=== PATIENT | female | born 1975 | race Caucasian/White ===

== ENCOUNTER → 2020-06-20 13:36 | Outpatient (BNVA) | payer MEDICARE, MEDICAID, SELFPAY | PROVIDERS: Family Provider Family Medicine; PCP Family Medicine; Visit Provider Family Medicine Adult Medicine | DX: Z00.00 Encounter for general adult medical examination without abnormal findings (principal); E03.9 Hypothyroidism, unspecified; I10 Essential (primary) hypertension; F32.9 Major depressive disorder, single episode, unspecified; K21.9 Gastro-esophageal reflux disease without esophagitis; J44.9 Chronic obstructive pulmonary disease, unspecified; Z79.899 Other long term (current) drug therapy | CPT/HCPCS: 80053; 80061; 83036; 83721; 84443; 85025 ==

== ENCOUNTER 2020-07-21 17:15 | Emergency (ER) | payer MEDICARE, MEDICAID, SELFPAY ==
[2020-07-21 17:23] VITALS: BP 189/122; PULSE 88; RESP 16; TEMP 36.8; O2SAT 98; BMI 34.7
--- NOTE | 2020-07-21 17:23 | XRR_ITS ---
PROCEDURE INFORMATION: Exam: XR Chest, 1 View Exam date and time: 07/21/2020 5:30 PM Age: 45 years old Clinical indication: Dyspnea; Additional info: Syncope TECHNIQUE: Imaging protocol: XR of the chest Views: 1 view. Total images: 1 COMPARISON: No relevant prior studies available. FINDINGS: Lungs: Unremarkable. No consolidation. Pleural space: Unremarkable. No pleural effusion. No pneumothorax. Heart/Mediastinum: Unremarkable. No cardiomegaly. Bones/joints: Cervical fusion. Epidural TENS unit. XR/XR chest 1V portable [id number] IMPRESSION: Nonacute.
--- NOTE | 2020-07-21 17:25 | ECG_ITS ---
[facility] Test Date: 2020-07-21 Pat Name: Cynthia Roblero Department: Room: Gender: Female Emergency Department Clinician: : 1975 Requested By: More Cook Order Number: [id number] Dari MD: Leila Voss M.D. Measurements Intervals [place] Rate: 79 P: 47 [place]: 146 QRS: 31 QRSD: 97 T: 38 QT: 375 QTc: 432 Interpretive Statements SINUS RHYTHM POSSIBLE LEFT ATRIAL ENLARGEMENT [-0.1mV P WAVE IN V1/V2] No previous ECG available for comparison Electronically Signed On 07-21-2020 17:48:48 MANAGER SECURITY by Leila Voss M.D. [id number]
--- NOTE | 2020-07-21 17:38 | ED_ITS ---
HPI - Recheck/Abnormal Lab/Rx General: Chief Complaint: Recheck/Abnormal Lab/Rx Stated Complaint: HIGH BLOOD PRESSURE Time Seen by Provider: 07/21/20 17:23 Source: patient and family (spouse) Mode of arrival: ambulatory Limitations: no limitations History of Present Illness: HPI narrative: 45-year-old female patient presents to the emergency department with hypertension. Reports readings at home 240s over 120s. She states took an extra clonidine 0.1 mg along with an old prescription dose of lisinopril 20 mg. She denies chest pain, shortness of breath. She reports recent blood pressure medication change, cessation of lisinopril and addition of clonidine. She has a bag of medications with her, prescription of chlorthalidone and carvedilol not in the bag. She reports not taking chlorthalidone. 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 Review of her visit with Dr Knedall, 06/2020, BP elevated at that time 168/100. Initial visit (ago): hour(s) (2-3) Returns today for: other (BP elevation) Description of abnormal result: reports feels her heart is fluttering with elevation of BP readings Symptoms since prior visit: no new symptoms Review of Systems General: Reports: 10 or more systems reviewed and unremarkable except in HPI and below Const: Denies: fever(s), chills or diaphoresis Eyes: Denies: blurry vision or eye redness ENMT: Denies: throat pain, dental pain or disequilibrium Card: Reports: palpitations; Denies: chest pain, irregular heart rhythm, edema, swelling of feet/ankles, lightheadedness, syncope, dyspnea on exertion or orthopnea Resp: Denies: dyspnea, productive cough, non-productive cough or wheezing GI: Denies: abdominal pain, nausea or vomiting : Denies: difficulty voiding or dysuria Musc: Reports: neck pain (chronic) and back pain (chronic) Skin/Breast: Denies: rash or pruritus Neuro: Denies: headache(s), weakness in extremities or behavioral changes Psych: Reports: anxiety (Controlled with medication), depression (Controlled with medication) and difficulty concentrating; Denies: sleeping more, hopelessness or irritability [place]/Lymph: Denies: easy bruising PFSH ED PFSH: Medical History Asthma Chronic GERD COPD (chronic obstructive pulmonary disease) Depression Elevated liver enzymes Hypertension Hypothalamic hypothyroidism Thoracic back pain Wellness examination Surgical History History of appendectomy History of back surgery History of cholecystectomy History of neck surgery History of tubal ligation Social History Smoking and tobacco status: current every day smoker cigarettes Packs smoked per day: 0.5 Second hand smoke exposure: Yes Alcohol intake: never Physical Exam Const: COMMON NORMALS: no acute distress, patient oriented x3, healthy appearing and alert GENERAL APPEARANCE: cooperative, comfortable and well hydrated HENMT: COMMON NORMALS: normocephalic, Normal external nose present and moist oral mucous membranes HEAD & SCALP: normocephalic NOSE: Normal external nose present Eye: COMMON NORMALS: Equal, round and reactive pupils present and EOMs intact bilaterally GENERAL EYE: appearance normal, both eyes and all related structures PUPIL: Yes Equal, round and reactive pupils present Neck/C-Spine: COMMON NORMALS: full ROM and no lymphadenopathy GENERAL: Yes normal visual inspection and Yes trachea midline CERVICAL SPINE: Yes cervical ROM normal Lymph: LYMPHATIC: no lymphadenopathy noted Chest: COMMONS NORMALS: normal inspection of the chest Resp: COMMON NORMALS: normal respiratory effort and clear to auscultation bilaterally AUSCULTATION: clear to auscultation bilaterally Cardio: COMMON NORMALS: regular rate, regular rhythm, S1 normal heart sound present, S2 normal heart sound present and Peripheral pulses 2+ throughout RATE: regular rate RHYTHM: regular rhythm HEART SOUNDS: S1 normal heart sound present and S2 normal heart sound present PERIPHERAL PULSES: Peripheral pulses 2+ throughout GI: COMMON NORMALS: Soft to palpation and non-tender INSPECTION: Yes normal to inspection PALPATION: Yes Soft to palpation : COMMON NORMALS: Yes no CVA tenderness BLADDER/KIDNEY EXAM: Yes no CVA tenderness Back/Pelvis: COMMON NORMALS: no CVA tenderness and thoracic and lumbar spine normal to inspection Extremity: COMMON NORMALS: normal to inspection and capillary refill normal Neuro: COMMON NORMALS: patient oriented x3 and no focal motor deficits SENSORIUM/ORIENTATION: Yes alert Psych: COMMON NORMALS: mental status grossly normal, Normal thought process present and cooperative ACTIVITY/MOTOR BEHAVIOR: Yes appropriate eye contact THOUGHT PROCESS: Normal thought process present Skin: COMMON NORMALS: no rashes or lesions noted and turgor normal GENERAL SKIN EXAM: no rashes or lesions noted and turgor normal Course Vital Signs: Vital signs: Vital Signs Temperature 98.3 F 07/21/20 17:23 Pulse Rate 60 07/21/20 19:24 Respiratory Rate 16 07/21/20 19:24 Blood Pressure 153/93 07/21/20 19:24 Pulse Oximetry 99 07/21/20 19:24 MDM - Recheck/Abnormal Lab/Rx MDM Narrative: Medical decision making narrative: 45-year-old female patient presents to the emergency department with hypertension, blood pressure here in the ED decreased to 153/93. She did receive 50 mg chlorthalidone in the ED; serology testing without significant abnormalities, liver enzymes noted to be elevated with previous elevation of liver enzymes noted. CBC without significant abnormality. EKG without acute findings. Prescription for chlorthalidone provided to the patient, advised to continue medications as prescribed. Verbalized understanding. Agrees to follow-up with her primary care provider next week. Heart rate remained in the 60s to 70s during her stay. Lab Data: Labs: Lab Results 07/21/20 07/21/20 07/21/20 Range/Units 17:45 17:45 17:45 WBC 8.0 (4.0-10.0) 10^3/ uL RBC 4.42 (4.1-5.3) 10^6/u L Hgb 13.9 (11.5-15.3) g/dL Hct 41.5 (37.0-47.0) % MCV 93.9 (81-99) fL MCH 31.4 (28.0-34.0) pg MCHC 33.5 (30.0-36.0) g/dL RDW 12.6 (12.1-15.1) % Plt Count 254 (130-400) 10^3/c mm MPV 11.7 H (7.4-10.4) fL Neut % (Auto) 49.6 % Lymph % (Auto) 34.8 % [place] % (Auto) 9.1 % Eos % (Auto) 5.0 % Baso % (Auto) 1.1 % Neut # (Auto) 3.98 (1.8-7.7) 10^3/u L Lymph # (Auto) 2.8 (0.8-4.8) 10^3/u L [place] # (Auto) 0.7 (0.2-0.9) 10^3/u L Eos # (Auto) 0.4 (0.0-0.8) 10^3/u L Baso # (Auto) 0.1 (0.0-0.1) 10^3/u L Nucleated RBC % (a uto) 0 % Nucleated RBCs # 0.0 /100WBC Sodium 138 (136-145) mmol/L Potassium 3.7 (3.5-5.1) mmol/L Chloride 101 (98-107) mmol/L Carbon Dioxide 25 (22-29) mmol/L Anion Gap 15.7 (5-19) BUN 8 (6-20) mg/dL Creatinine 0.8 (0.5-0.9) mg/dL GFR Calculation 76.9 L (90-130) mL/min Glucose 150 H (65-115) mg/dL Calculated Osmolal ity 287 (285-295) mOsm/k g Calcium 9.4 (8.5-10.5) mg/dL Total Bilirubin 0.4 (0.15-1.2) mg/dL AST 192 H (0-32) U/L ALT 184 H (0-33) U/L Alkaline Phosphata se 100 (35-105) IU/L Troponin T Baselin e 6 (0-10) ng/L NT-Pro-B Natriuret Pep 62 (0-125) pg/mL Total Protein 7.9 (6.6-8.7) g/dL Albumin 4.5 (3.5-5.2) g/dL Globulin 3.4 (1.3-4.6) g/dL EKG Data^: EKG 1: EKG interpretation date: 07/21/20 EKG interpretation time: 17:40 Other EKG comments: Sinus rhythm; left possible left atrial enlargement, borderline ECG Discharge Plan Discharge Patient Disposition: Home Clinical Impression: Medication discontinued without order Hypertension Qualifiers: Hypertension type: essential hypertension Qualified Code(s): I10 - Essential (primary) hypertension Condition: Stable Prescriptions: New chlorthalidone 25 mg tablet 25 mg PO DAILY Qty: 30 RF: 0 No Action albuterol sulfate [Ventolin HFA] 90 mcg/actuation HFA aerosol inhaler 2 puff INHALATION QID RF: 0 carvedilol 12.5 mg tablet 12.5 mg PO BID 90 Days Qty: 180 RF: 1 levothyroxine [Synthroid] 75 mcg tablet 75 mcg PO DAILY 90 Days Qty: 90 RF: 1 hydrocodone-acetaminophen [[place]] 10-325 mg tablet 1 tab PO QID PRN (Reason: pain) 30 Days Qty: 1 RF: 0 cyclobenzaprine 5 mg tablet 5 mg PO TID PRN (Reason: muscle spasm) 30 Days Qty: 1 RF: 0 chlorthalidone 25 mg tablet 25 mg PO DAILY 90 Days Qty: 90 RF: 0 promethazine 25 mg tablet 25 mg PO TID PRN (Reason: nausea and vomiting and headache) 90 Days Qty: 90 RF: 1 bupropion HCl 100 mg tablet 100 mg PO BID Qty: 60 RF: 1 pantoprazole 20 mg tablet,delayed release (DR/EC) 20 mg PO DAILY 90 Days Qty: 90 RF: 1 clonidine HCl 0.1 mg tablet 0.1 mg PO BID 90 Days Qty: 180 RF: 0 metformin 500 mg tablet 500 mg PO DAILY Qty: 30 RF: 2 gemfibrozil [Lopid] 600 mg tablet 600 mg PO BID 90 Days Qty: 180 RF: 1 (DME) blood-glucose meter [OneTouch Ultra2 Meter] Misc See Rx Instructions .ROUTE .MEDSUPPLY Qty: 1 RF: 0 (DME) OneTouch Ultra Blue Test Strip Strip See Rx Instructions .ROUTE .MEDSUPPLY Qty: 100 RF: 5 (DME) lancets [OneTouch Delica Plus Lancet] 33 gauge misc See Rx Instructions .ROUTE .MEDSUPPLY Qty: 100 RF: 5 Discharge Orders: Discharge ED (Routine); Ordered 07/21/20 Ordered By: More Urbina Referrals: Kay Najera DO [Primary Care Provider] - Discharge Diet: Cardiac Discharge Activity: Limit activity as instructed Patient Instructions: Hypertensive Crisis (ED), Hypertension (ED) Activity Restrictions/Additional Instructions: Prescription of chlorthalidone has been provided; take medications daily, start tomorrow as dose was provided tonight Continue current hypertension medications; chlorthalidone 25 mg daily; carvedilol 12.5 mg twice daily; clonidine 0.1 mg twice daily. Continue monitoring your blood pressure at home; record readings and follow-up with your primary care provider next week without fail for blood pressure evaluation. Return to the emergency department if you develop worsening symptoms such as heart palpitations, difficulty breathing or chest pain. Coding Level of Care Code ED Medical Laboratory Technician for Simóng Fwd Exam Comprehensive
[2020-07-21 18:00] LABS: Basophils # 0.1 10^3/uL (0.0-0.1); Basophils % 1.1 %; Eosinophils # 0.4 10^3/uL (0.0-0.8); Hematocrit 41.5 % (37.0-47.0); Hemoglobin 13.9 g/dL (11.5-15.3); Lymphocytes # 2.8 10^3/uL (0.8-4.8); Lymphocytes % 34.8 %; Mean Corpuscular HGB Conc 33.5 g/dL (30.0-36.0); Mean Corpuscular Hemoglobin 31.4 pg (28.0-34.0); Mean Corpuscular Volume 93.9 fL (81-99); Mean Platelet Volume 11.7 fL (7.4-10.4); Monocytes # 0.7 10^3/uL (0.2-0.9); Monocytes % 9.1 %; Neutrophils # 3.98 10^3/uL (1.8-7.7); Neutrophils % 49.6 %; Nucleated Red Blood Cells % 0 %; Platelet Count 254 10^3/cmm (130-400); Red Blood Count 4.42 10^6/uL (4.1-5.3); Red Cell Distribution Width 12.6 % (12.1-15.1)
[2020-07-21 18:18] LABS: Troponin(5th) Baseline 6 ng/L (0-10)
[2020-07-21 18:28] LABS: Alanine Aminotransferase 184 U/L (0-33); Albumin Level 4.5 g/dL (3.5-5.2); Alkaline Phosphatase 100 IU/L (35-105); Anion Gap 15.7 (5-19); Aspartate Amino Transferase 192 U/L (0-32); Blood Urea Nitrogen 8 mg/dL (6-20); Calcium 9.4 mg/dL (8.5-10.5); Carbon Dioxide 25 mmol/L (22-29); Chloride 101 mmol/L (98-107); Globulin 3.4 g/dL (1.3-4.6); Glomerular Filtration Rate 76.9 mL/min (90-130); Glucose 150 mg/dL (65-115); NT Pro B Type Natriuretic Pept 62 pg/mL (0-125); Osmolality Calculated 287 mOsm/kg (285-295); Potassium 3.7 mmol/L (3.5-5.1); Sodium 138 mmol/L (136-145); Total Bilirubin 0.4 mg/dL (0.15-1.2); Total Protein 7.9 g/dL (6.6-8.7)
[2020-07-21 18:43] VITALS: BP 155/94; PULSE 64; RESP 16; O2SAT 98
--- NOTE | 2020-07-21 19:08 | PC.NURSE ---
pt dosage was 25mg chlorthalidon, pharmacy brought down 2 pills, 25 mg each and both pills were accidently given. Discussed with HARMONIC ANALYST More Urbina and Dr Leblanc as well as pharmacy Scout and charge nurse Maximus.
[2020-07-21 19:24] VITALS: BP 153/93; PULSE 60; RESP 16; O2SAT 99
== END 2020-07-21 19:40 | disposition home or self-care (01) ==
PROVIDERS: Emergency Provider Nurse Practitioner Family; PCP Family Medicine
DX: I10 Essential (primary) hypertension (principal); J44.9 Chronic obstructive pulmonary disease, unspecified; F17.210 Nicotine dependence, cigarettes, uncomplicated
CPT/HCPCS: 12345; 71045; 80053; 83880; 84484; 85025; 93005; 99283

== ENCOUNTER → 2020-11-09 13:18 | Outpatient (BNVA) | payer MEDICARE, MEDICAID, SELFPAY | PROVIDERS: PCP Family Medicine Adult Medicine; Visit Provider Family Medicine Adult Medicine | DX: E11.69 Type 2 diabetes mellitus with other specified complication (principal); E78.5 Hyperlipidemia, unspecified; E03.9 Hypothyroidism, unspecified; R74.8 Abnormal levels of other serum enzymes; F32.9 Major depressive disorder, single episode, unspecified; I10 Essential (primary) hypertension; J44.9 Chronic obstructive pulmonary disease, unspecified | CPT/HCPCS: 80053; 80061; 83036; 83721; 84443 ==

== ENCOUNTER → 2021-04-01 11:41 | Outpatient (BNVA) | payer OTHER, SELFPAY | PROVIDERS: PCP Family Medicine Adult Medicine; Visit Provider Family Medicine Adult Medicine | DX: E03.9 Hypothyroidism, unspecified (principal); E11.69 Type 2 diabetes mellitus with other specified complication; E78.5 Hyperlipidemia, unspecified; R74.8 Abnormal levels of other serum enzymes; Z13.6 Encounter for screening for cardiovascular disorders; K21.9 Gastro-esophageal reflux disease without esophagitis; Z79.899 Other long term (current) drug therapy | CPT/HCPCS: 80053; 80061; 83036; 84443; 85007; 85027 ==

== ENCOUNTER 2021-05-29 01:16 | Inpatient (IN) | payer MEDICARE, MEDICAID, SELFPAY ==
[2021-05-29] VITALS (19 sets, daily range): BP systolic 107–202; BP diastolic 69–112; PULSE 7–76; RESP 16–24; TEMP 36.6–37.3; O2SAT 90–99; BMI 31.4
--- NOTE | 2021-05-29 02:00 | W.ED.ABDPA2 ---
Documented by User: OCTVAIA Marie 05/29/21 03:21 HPI - Abdominal Pain General: Chief Complaint: Abdominal Pain Stated Complaint: Abd Pain Time Seen by Provider: 05/29/21 01:32 History of Present Illness: HPI narrative: Patient is a 46-year-old female comes to the ED with abdominal pain nausea and vomiting. Patient has a surgical history of cholecystectomy, appendectomy, tubal ligation. Medical history of dyslipidemia, type 2 diabetes, GERD, COPD, hypertension and hypothyroidism. Symptoms started around 8 PM tonight. She had just finished eating dinner when symptoms started. This pain is similar to her past pancreatitis episode, but this pain seems to be more severe. Endorses nausea and has had a couple episodes of emesis since onset of symptoms. Pain she rates a 10 out of 10 and its in the periumbilical/epigastric region and radiates to the middle of her back. Associated Symptoms: Reports nausea and vomiting; Denies chills, constipation, diarrhea, dysuria, fever(s), hematochezia and hematuria Review of Systems Const: Denies: fever(s), chills or fatigue Eyes: Denies: change in vision or eye discomfort ENMT: Denies: throat pain, odynophagia, nasal discharge or nasal congestion Card: Denies: chest pain, palpitations, edema, swelling of feet/ankles, dyspnea on exertion or orthopnea Resp: Denies: dyspnea, productive cough or non-productive cough GI: Reports: abdominal pain, nausea and vomiting; Denies: diarrhea, constipation or hematochezia : Denies: flank pain, dysuria or hematuria Musc: Denies: neck pain, back pain or extremity swelling Skin/Breast: Denies: rash or new lesions Neuro: Denies: headache(s), numbness in extremities or weakness in extremities PFS ED PFSH: Medical History Asthma Chronic GERD COPD (chronic obstructive pulmonary disease) Depression Diabetes type 2, controlled Dyslipidemia associated with type 2 diabetes mellitus Elevated liver enzymes Hypertension Hypothalamic hypothyroidism Thoracic back pain She has had some thoracic back pain and when she bends over sometimes she has a hard time straightening up however this is not as new is the fatigue and the burning sensation has had in her face and she thinks it might be related to either the clonidine or the Lopid that she started at the same time she stopped her Metformin. Wellness examination Surgical History History of appendectomy History of back surgery History of cholecystectomy History of neck surgery History of tubal ligation Social History Smoking and tobacco status: current every day smoker cigarettes Packs smoked per day: 0.5 Second hand smoke exposure: Yes Alcohol intake: never Physical Exam Const: COMMON NORMALS: patient oriented x3 and alert GENERAL APPEARANCE: cooperative and in distress (Patient appears uncomfortable and is in pain.) HENMT: COMMON NORMALS: normocephalic HEAD & SCALP: normocephalic MOUTH: moist mucous membranes abnormal Details: parched THROAT: posterior oropharynx normal and uvula midline Neck/C-Spine: COMMON NORMALS: supple GENERAL: Yes normal visual inspection Resp: COMMON NORMALS: normal respiratory effort, No retractions, No use of accessory muscles and clear to auscultation bilaterally AUSCULTATION: clear to auscultation bilaterally Cardio: COMMON NORMALS: regular rate, regular rhythm, S1 normal heart sound present, S2 normal heart sound present, No gallops present (Cardio), No clicks present (Cardio), No murmurs present (Cardio) and Peripheral pulses 2+ throughout RATE: regular rate RHYTHM: regular rhythm HEART SOUNDS: S1 normal heart sound present and S2 normal heart sound present PERIPHERAL PULSES: Peripheral pulses 2+ throughout GI: COMMON NORMALS: Normal to inspection, nondistended, normoactive bowel sounds present, Soft to palpation and no masses PALPATION: Yes Soft to palpation and Yes Tenderness to palpation present (GI) Details: other (Periumbilical and epigastric region.) : COMMON NORMALS: Yes no CVA tenderness BLADDER/KIDNEY EXAM: Yes no CVA tenderness Back/Pelvis: COMMON NORMALS: no CVA tenderness Extremity: COMMON NORMALS: normal to inspection Neuro: COMMON NORMALS: patient oriented x3 SENSORIUM/ORIENTATION: Yes alert Skin: GENERAL SKIN EXAM: dry skin Course Reevaluation(s): Reevaluation #1: Patient's pain has improved and she now rates it about a 7 out of 10. Her nausea has resolved and she has had no episodes of emesis since she is gotten here to the ED. I told patient about lab and CT findings showing pancreatitis. I discussed with her the options of potentially getting admitted or outpatient treatment. Patient would prefer to go home tonight. I told patient we will give her some another dose of something for pain and have her try some p.o. water. If she can keep fluids down and pain is better controlled she can discharge home. Time: 03:05 Vital Signs: Vital signs: Vital Signs Pulse Rate 64 05/29/21 02:14 Respiratory Rate 24 H 05/29/21 02:10 Blood Pressure 166/96 05/29/21 01:21 Pulse Oximetry 97 05/29/21 02:14 MDM - Abdominal Pain MDM Narrative: Medical decision making narrative: Patient is a 46-year-old female comes to the ED with abdominal pain, nausea vomiting. Symptoms started around 8 PM tonight right after she ate some food. She has a history of pancreatitis and says this is similar to one of her past episodes. Pain radiates to the middle of the back. Vital stable. Exam shows a patient appears in distress and pain. She has some periumbilical and epigastric tenderness upon palpation. Oral mucous membranes are dry. White blood cell count 12 and the rest of CBC and CMP were unremarkable. Lipase 1240. Lactic is pending and blood cultures pending. CT of abdomen pelvis showed pancreatitis without necrosis. After patient received IV fluids, morphine and Reglan her pain has improved some and her nausea has resolved. She has not had any episodes of emesis here in the ED. I discussed possible admission or outpatient treatment with patient and she prefers not to be admitted and would like to go home tonight. I told patient if we get her pain better controlled and she can keep p.o. fluids down, there is a good chance she could be discharged home for outpatient treatment. I talked with Dr. Watts about pt case and signed patient out to him. I told him that patient is getting another liter of fluids, pain med and is going to try some p.o. fluids. Dr. Watts accepted signout of patient and will monitor her pain and p.o. fluids and will make discharge plan. Lab Data: Attestation: I reviewed the patient's lab results. Labs: Lab Results 05/29/21 05/29/21 01:50 01:50 WBC 12.0 10^3/uL H 10 ^3/uL (4.0-10.0) RBC 4.23 10^6/uL 10^6 /uL (4.1-5.3) Hgb 13.4 g/dL g/dL (11.5-15.3) Hct 38.3 % % (37.0-47.0) MCV 90.5 fl fl (81-99) MCH 31.7 pg pg (28.0-34.0) MCHC 35.0 g/dL g/dL (30.0-36.0) RDW 12.6 % % (12.1-15.1) Plt Count 219 10^3/cmm 10^3 /cmm (130-400) MPV 12.2 fL H fL (7.4-10.4) Neut % (Auto) 71.0 % % Lymph % (Auto) 18.2 % % [place] % (Auto) 7.4 % % Eos % (Auto) 2.2 % % Baso % (Auto) 0.7 % % Neut # (Auto) 8.55 10^3/uL H 10 ^3/uL (1.8-7.7) Lymph # (Auto) 2.2 10^3/uL 10^3/ uL (0.8-4.8) [place] # (Auto) 0.9 10^3/uL 10^3/ uL (0.2-0.9) Eos # (Auto) 0.3 10^3/uL 10^3/ uL (0.0-0.8) Baso # (Auto) 0.1 10^3/uL 10^3/ uL (0.0-0.1) Nucleated RBC % (a uto) 0 % % Nucleated RBCs # 0.0 /100WBC /100W BC Sodium 137 mmol/L mmol/L (136-145) Potassium 3.7 mmol/L mmol/L (3.5-5.1) Chloride 98 mmol/L mmol/L (98-107) Carbon Dioxide 25 mmol/L mmol/L (22-29) Anion Gap 17.7 (5-19) BUN 16 mg/dL mg/dL (6-20) Creatinine 0.8 mg/dL mg/dL (0.5-0.9) GFR Calculation 76.6 mL/min L mL/ min (90-130) Glucose 150 mg/dL H mg/dL (65-115) Calculated Osmolal ity 288 mOsm/kg mOsm/ kg (285-295) Calcium 9.9 mg/dL mg/dL (8.5-10.5) Total Bilirubin 0.3 mg/dL mg/dL (0.15-1.2) AST 73 U/L H U/L (0-32) ALT 45 U/L H U/L (0-33) Alkaline Phosphata se 163 IU/L H IU/L (35-105) Total Protein 8.0 g/dL g/dL (6.6-8.7) Albumin 4.7 g/dL g/dL (3.5-5.2) Globulin 3.3 g/dL g/dL (1.3-4.6) Lipase 1240 U/L H U/L (13-60) Imaging Data ^: CT Abd/Pel: Attestation: I personally reviewed and interpreted this imaging study as follows: Radiologist's impression: [place] [address] CT Scan Report Signed Patient: Cynthia Roblero Unit #: [id number] : 1975 Age/Sex: 46 / F ADM Date: 05/29/21 Loc: ER Room/Bed: Attending Dr: Ordering Provider/Ordering MD: Chuy Geurra Date of Service: 05/29/21 Procedure(s): CT abdomen pelvis w con* [id number] Accession Number(s): [id number] Report Number: [id number] PROCEDURE INFORMATION: Exam: CT Abdomen And Pelvis With Contrast Exam date and time: 05/29/2021 1:59 AM Age: 46 years old Clinical indication: Nausea and vomiting; Abdominal pain; Prior surgery; Surgery type: Gb. Stimulator; Patient HX: Epigastric pain with n/v. ; Additional info: Abdominal pain-periumbilical and epigastric, n/v TECHNIQUE: Imaging protocol: Computed tomography of the abdomen and pelvis with contrast. Radiation optimization: All CT scans at this facility use at least one of these dose optimization techniques: automated exposure control; mA and/or kV adjustment per patient size (includes targeted exams where dose is matched to clinical indication); or iterative reconstruction. Contrast material: OMNI 300; Contrast volume: 95 ml; Contrast route: INTRAVENOUS (IV); COMPARISON: MRI Lumbar Spine w/o [id number] 09/11/2017 10:33 AM RADIATION DOSE METRICS: Total DLP (mGy-cm): 1673.06 FINDINGS: Tubes, catheters and devices: Spinal cord stimulator leads enter the thoracic canal at T9-T10. Lungs: The lung bases are clear. No effusion Liver: Normal. No mass. Gallbladder and bile ducts: There has been a cholecystectomy. Mild biliary dilation, consistent with prior cholecystectomy. Pancreas: The pancreas is enlarged and edematous with peripancreatic fat stranding. Normal pancreatic enhancement. Spleen: Normal. No splenomegaly. Adrenal glands: Normal. No mass. Kidneys and ureters: Normal. No hydronephrosis. Stomach and bowel: Mild amount of formed stool in the colon. Appendix: The appendix is not positively identified. However, no secondary changes of appendicitis are present. Intraperitoneal space: Unremarkable. No free air. No significant fluid collection. Vasculature: Unremarkable. No abdominal aortic aneurysm. Lymph nodes: Unremarkable. No enlarged lymph nodes. Urinary bladder: Unremarkable as visualized. Reproductive: Unremarkable as visualized. Bones/joints: Unremarkable. No acute fracture. Soft tissues: Unremarkable. CT/CT abdomen pelvis w con* [id number] IMPRESSION: 1. Acute pancreatitis without necrosis. 2. Mild constipation. 3. The appendix is not positively identified. However, no secondary changes of appendicitis are present. Radiation Dose CTDIVOL = (mGy): DLP = 1673.06 (mGy-cm) Dictated By: Olivier Wilson Signed By: Olivier Wilson Signed Date/Time: 05/29/21 0255 DD/ [id number] Discharge Plan Discharge Clinical Impression: Pancreatitis Qualifiers: Chronicity: acute Pancreatitis type: unspecified pancreatitis type Acute pancreatitis complication: no infection or necrosis Qualified Code(s): K85.90 - Acute pancreatitis without necrosis or infection, unspecified Condition: Stable Prescriptions: No Action albuterol sulfate [Ventolin HFA] 90 mcg/actuation HFA aerosol inhaler 2 puff INHALATION QID RF: 0 hydrocodone-acetaminophen [[place]] 10-325 mg tablet 1 tab PO QID PRN (Reason: pain) 30 Days Qty: 1 RF: 0 cyclobenzaprine 5 mg tablet 5 mg PO TID PRN (Reason: muscle spasm) 30 Days Qty: 1 RF: 0 pantoprazole 20 mg tablet,delayed release (DR/EC) See Rx Instructions .ROUTE .COMPLEX PRNRF: 0 niacin 1,000 mg tablet extended release 24 hr 1,000 mg PO .pm Qty: 90 RF: 3 bupropion HCl 200 mg tablet sustained-release 12 hr 200 mg PO BID Qty: 60 RF: 5 (DME) blood-glucose meter [OneTouch Ultra2 Meter] Misc See Rx Instructions .ROUTE .MEDSUPPLY Qty: 1 RF: 0 (DME) OneTouch Ultra Blue Test Strip Strip See Rx Instructions .ROUTE .MEDSUPPLY Qty: 100 RF: 5 (DME) lancets [OneTouch Delica Plus Lancet] 33 gauge misc See Rx Instructions .ROUTE .MEDSUPPLY Qty: 100 RF: 5 levothyroxine [Synthroid] 75 mcg tablet 75 mcg PO DAILY 90 Days Qty: 90 RF: 1 clonidine HCl 0.1 mg tablet 0.1 mg PO BID Qty: 60 RF: 5 gemfibrozil 600 mg tablet See Rx Instructions .ROUTE .COMPLEX Qty: 180 RF: 0 carvedilol 12.5 mg tablet See Rx Instructions .ROUTE .COMPLEX Qty: 180 RF: 1 promethazine 25 mg tablet See Rx Instructions .ROUTE .COMPLEX Qty: 90 RF: 1 Referrals: Christiano Kendall MD [Primary Care Provider] - Coding Level of Care Code ED Artistic Director for Chg Fwd Exam Comprehensive Documented by User: Demar Watts MD 05/29/21 03:38 HPI - Abdominal Pain General: Chief Complaint: Abdominal Pain Stated Complaint: Abd Pain Time Seen by Provider: 05/29/21 01:32 PFSH ED PFSH: Medical History Asthma Chronic GERD COPD (chronic obstructive pulmonary disease) Depression Diabetes type 2, controlled Dyslipidemia associated with type 2 diabetes mellitus Elevated liver enzymes Hypertension Hypothalamic hypothyroidism Thoracic back pain She has had some thoracic back pain and when she bends over sometimes she has a hard time straightening up however this is not as new is the fatigue and the burning sensation has had in her face and she thinks it might be related to either the clonidine or the Lopid that she started at the same time she stopped her Metformin. Wellness examination Surgical History History of appendectomy History of back surgery History of cholecystectomy History of neck surgery History of tubal ligation Social History Smoking and tobacco status: current every day smoker cigarettes Packs smoked per day: 0.5 Second hand smoke exposure: Yes Alcohol intake: never Course Vital Signs: Vital signs: Vital Signs Pulse Rate 64 05/29/21 02:14 Respiratory Rate 24 H 05/29/21 02:10 Blood Pressure 166/96 05/29/21 01:21 Pulse Oximetry 97 05/29/21 02:14 MDM - Abdominal Pain MDM Narrative: Medical decision making narrative: On reassessment, patient tolerated p.o. without any difficulty. CT showed pancreatitis. At this time, I performed shared decision making with patient for admission vs discharge. Since patient tolerated p.o., I have offered patient the option to go home with close follow-up. Patient agrees with plan with close follow-up. I have given explained patient to come back to the emergency room should she have any worsening pain, fever/chill, dehydration, inability to tolerate p.o. Patient verbalized understanding of the risk of going home today and likes to do so at this time. Patient is aware that she needs to follow-up with her primary care provider in the next 48 hours. Rx zofran PRN nausea/vomiting Disposition: Discharge. Patient counseled regarding diagnostic impression, treatment plan. Patient given ED strict return precautions to return for continuation, worsening, or development of new symptoms. Instructed to f/u w/ PCP regarding symptoms today. Patient verbalized understanding. Lab Data: Labs: Lab Results 05/29/21 05/29/21 01:50 01:50 WBC 12.0 10^3/uL H 10 ^3/uL (4.0-10.0) RBC 4.23 10^6/uL 10^6 /uL (4.1-5.3) Hgb 13.4 g/dL g/dL (11.5-15.3) Hct 38.3 % % (37.0-47.0) MCV 90.5 fl fl (81-99) MCH 31.7 pg pg (28.0-34.0) MCHC 35.0 g/dL g/dL (30.0-36.0) RDW 12.6 % % (12.1-15.1) Plt Count 219 10^3/cmm 10^3 /cmm (130-400) MPV 12.2 fL H fL (7.4-10.4) Neut % (Auto) 71.0 % % Lymph % (Auto) 18.2 % % [place] % (Auto) 7.4 % % Eos % (Auto) 2.2 % % Baso % (Auto) 0.7 % % Neut # (Auto) 8.55 10^3/uL H 10 ^3/uL (1.8-7.7) Lymph # (Auto) 2.2 10^3/uL 10^3/ uL (0.8-4.8) [place] # (Auto) 0.9 10^3/uL 10^3/ uL (0.2-0.9) Eos # (Auto) 0.3 10^3/uL 10^3/ uL (0.0-0.8) Baso # (Auto) 0.1 10^3/uL 10^3/ uL (0.0-0.1) Nucleated RBC % (a uto) 0 % % Nucleated RBCs # 0.0 /100WBC /100W BC Sodium 137 mmol/L mmol/L (136-145) Potassium 3.7 mmol/L mmol/L (3.5-5.1) Chloride 98 mmol/L mmol/L (98-107) Carbon Dioxide 25 mmol/L mmol/L (22-29) Anion Gap 17.7 (5-19) BUN 16 mg/dL mg/dL (6-20) Creatinine 0.8 mg/dL mg/dL (0.5-0.9) GFR Calculation 76.6 mL/min L mL/ min (90-130) Glucose 150 mg/dL H mg/dL (65-115) Calculated Osmolal ity 288 mOsm/kg mOsm/ kg (285-295) Calcium 9.9 mg/dL mg/dL (8.5-10.5) Total Bilirubin 0.3 mg/dL mg/dL (0.15-1.2) AST 73 U/L H U/L (0-32) ALT 45 U/L H U/L (0-33) Alkaline Phosphata se 163 IU/L H IU/L (35-105) Total Protein 8.0 g/dL g/dL (6.6-8.7) Albumin 4.7 g/dL g/dL (3.5-5.2) Globulin 3.3 g/dL g/dL (1.3-4.6) Lipase 1240 U/L H U/L (13-60) Discharge Plan Discharge Clinical Impression: Pancreatitis Qualifiers: Chronicity: acute Pancreatitis type: unspecified pancreatitis type Acute pancreatitis complication: no infection or necrosis Qualified Code(s): K85.90 - Acute pancreatitis without necrosis or infection, unspecified Condition: Stable Prescriptions: No Action albuterol sulfate [Ventolin HFA] 90 mcg/actuation HFA aerosol inhaler 2 puff INHALATION QID RF: 0 hydrocodone-acetaminophen [[place]] 10-325 mg tablet 1 tab PO QID PRN (Reason: pain) 30 Days Qty: 1 RF: 0 cyclobenzaprine 5 mg tablet 5 mg PO TID PRN (Reason: muscle spasm) 30 Days Qty: 1 RF: 0 pantoprazole 20 mg tablet,delayed release (DR/EC) See Rx Instructions .ROUTE .COMPLEX PRNRF: 0 niacin 1,000 mg tablet extended release 24 hr 1,000 mg PO .pm Qty: 90 RF: 3 bupropion HCl 200 mg tablet sustained-release 12 hr 200 mg PO BID Qty: 60 RF: 5 (DME) blood-glucose meter [OneTouch Ultra2 Meter] Misc See Rx Instructions .ROUTE .MEDSUPPLY Qty: 1 RF: 0 (DME) OneTouch Ultra Blue Test Strip Strip See Rx Instructions .ROUTE .MEDSUPPLY Qty: 100 RF: 5 (DME) lancets [OneTouch Delica Plus Lancet] 33 gauge misc See Rx Instructions .ROUTE .MEDSUPPLY Qty: 100 RF: 5 levothyroxine [Synthroid] 75 mcg tablet 75 mcg PO DAILY 90 Days Qty: 90 RF: 1 clonidine HCl 0.1 mg tablet 0.1 mg PO BID Qty: 60 RF: 5 gemfibrozil 600 mg tablet See Rx Instructions .ROUTE .COMPLEX Qty: 180 RF: 0 carvedilol 12.5 mg tablet See Rx Instructions .ROUTE .COMPLEX Qty: 180 RF: 1 promethazine 25 mg tablet See Rx Instructions .ROUTE .COMPLEX Qty: 90 RF: 1 Referrals: Christiano Kendall MD [Primary Care Provider] - Coding Level of Care Code ED Artistic Director for Chg Fwd Exam Comprehensive
[2021-05-29 02:07] LABS: Basophils # 0.1 10^3/uL (0.0-0.1); Basophils % 0.7 %; Eosinophils # 0.3 10^3/uL (0.0-0.8); Eosinophils % 2.2 %; Hematocrit 38.3 % (37.0-47.0); Hemoglobin 13.4 g/dL (11.5-15.3); Lymphocytes # 2.2 10^3/uL (0.8-4.8); Lymphocytes % 18.2 %; Mean Corpuscular Hemoglobin 31.7 pg (28.0-34.0); Mean Corpuscular Volume 90.5 fl (81-99); Mean Platelet Volume 12.2 fL (7.4-10.4); Monocytes # 0.9 10^3/uL (0.2-0.9); Monocytes % 7.4 %; Neutrophils # 8.55 10^3/uL (1.8-7.7); Nucleated Red Blood Cells % 0 %; Platelet Count 219 10^3/cmm (130-400); Red Blood Count 4.23 10^6/uL (4.1-5.3); Red Cell Distribution Width 12.6 % (12.1-15.1)
[2021-05-29] MEDS: metoclopramide 5 mg/mL SDV 2 mL 10 MG IVP (02:08)
[2021-05-29] MEDS: morphine 4 mg/mL SDV 1 mL IVP (02:10)
[2021-05-29] MEDS: sodium chloride 0.9% 1,000 ML 999 ML IV ×2 (02:11→04:10)
[2021-05-29] MEDS: iohexol 300 mg/mL 100 mL Btl IV (02:15)
[2021-05-29 02:18] LABS: Alanine Aminotransferase 45 U/L (0-33); Albumin Level 4.7 g/dL (3.5-5.2); Alkaline Phosphatase 163 IU/L (35-105); Anion Gap 17.7 (5-19); Aspartate Amino Transferase 73 U/L (0-32); Blood Urea Nitrogen 16 mg/dL (6-20); Calcium 9.9 mg/dL (8.5-10.5); Carbon Dioxide 25 mmol/L (22-29); Chloride 98 mmol/L (98-107); Globulin 3.3 g/dL (1.3-4.6); Glomerular Filtration Rate 76.6 mL/min (90-130); Glucose 150 mg/dL (65-115); Osmolality Calculated 288 mOsm/kg (285-295); Potassium 3.7 mmol/L (3.5-5.1); Sodium 137 mmol/L (136-145); Total Bilirubin 0.3 mg/dL (0.15-1.2)
[2021-05-29 02:26] LABS: Lipase 1240 U/L (13-60)
[2021-05-29] MEDS: HYDROmorphone 1 mg/mL INJ 1 mL IVP (04:10)
[2021-05-29 04:31] LABS: Add Urine Microscopic? NO; Charge for UA Resulting for Rev
[2021-05-29 04:38] LABS: Bilirubin Urine Neg (Negative); Blood Urine Neg (Negative); Glucose Urine UA Norm (Normal); Ketones Urine Negative (Negative); Leukocyte Esterase Urine Negative (Negative); Nitrate Urine Negative (Negative); Protein Urine Neg (Negative); Urine Appearance Clear (CLEAR); Urine Color Yellow (Yellow); Urobilinogen Urine Norm (Negative); pH Urine 5 (5-7)
[2021-05-29 05:10] LABS: Lactic Sepsis W/Reflex 0.9 mmol/L (0.5-2.2)
[2021-05-29] MEDS: HYDROmorphone 1 mg/mL INJ 1 mL 0.5 MG IVP ×4 (05:45→20:07)
--- NOTE | 2021-05-29 05:49 | P.HP_ITS ---
Providers/Chief Complaint Admitting Physician: Nadege Yoon MD Primary Care Provider: Christiano Kednall MD Chief Complaint: Abd Pain History of Present Illness Cynthia Roblero is a 46 year old female with PMH as below presenting today with abdominal pain that started shortly after dinner overnight. Pain associated with radiation into back and sides. Multiple episodes of nausea and vomiting+. No h/o binge alcohol consumption. Ct today shows acute pancreatitis without signs of necrosis. LFTs mildly deranged, CT abdomen shows post cholecystectomy state with mild biliary dilation thought related to post cholecystectomy. LFT trend with transaminitis dating back at least few months. Normal T. bili, mildly elevated ALP. Patient was going to be discharged earlier this morning however has been unable to tolerate po intake. Review of Systems Const: Denies: fever(s), chills or body aches Eyes: Denies: change in vision, blurry vision or photophobia ENMT: Reports: hoarseness; Denies: throat pain, enlarged tonsils, odynophagia or nasal congestion Card: Denies: chest pain, palpitations, irregular heart rhythm, edema, swelling of feet/ankles, lightheadedness, pre-syncope, dyspnea on exertion or orthopnea Resp: Denies: dyspnea, productive cough, non-productive cough, wheezing, stridor, pain on inspiration, change in phlegm color, hemoptysis or chest congestion GI: Denies: abdominal pain, nausea, vomiting, hematemesis, coffee ground emesis, dysphagia, heartburn, diarrhea, constipation, GI cramping, change in stool character, hematochezia or melena : Denies: flank pain, difficulty voiding, dysuria, urinary frequency, urinary urgency, urinary hesitancy or hematuria Musc: Denies: neck pain, back pain, extremity pain, joint swelling, joint warmth or deformity Neuro: Denies: headache(s), numbness in extremities, weakness in extremities, sensory changes, difficulty walking, frequent falls, dizziness, vertigo, behavioral changes, Slurred speech present or seizure-like activity Psych: Denies: anxiety, depression, suicidal ideation or homicidal ideation Endo: Denies: polyuria, polydipsia, tired all the time, cold intolerance or hot flashes [place]/Lymph: Denies: easy bruising or easy bleeding Medications/Allergies Home Medications Medication Instructions Recorded Confirmed Last Taken Type albuterol sulfate 90 mcg/actuation 2 puff INHALATION QID 02/29/20 04/03/21 Unknown History aerosol inhaler cyclobenzaprine 5 mg tablet 5 mg PO TID PRN 30 Days #1 tab 02/29/20 04/03/21 Unknown Rx hydrocodone 10 mg-acetaminophen 1 tab PO QID PRN 30 Days #1 tab 02/29/20/2 09/02 Unknown Rx 325 mg tablet blood sugar diagnostic #100 ea 06/27/20 04/03/21 Unknown Rx blood-glucose meter #1 ea 06/27/20 04/03/21 Unknown Rx lancets 33 gauge #100 ea 06/27/20 04/03/21 Unknown Rx levothyroxine 75 mcg tablet 75 mcg PO DAILY 90 Days #90 tab 09/19/20 04/03/21 Unknown Rx clonidine HCl 0.1 mg tablet 0.1 mg PO BID #60 tab 01/31/21 04/03/21 Unknown Rx gemfibrozil 600 mg tablet See Rx Instructions .ROUTE 03/19/21 04/03/21 Unknown Rx .COMPLEX #180 tab bupropion HCl 200 mg tablet,12 hr 200 mg PO BID #60 tab 04/03/21 04/03/21 Unknown Rx sustained-release niacin 1,000 mg tablet,extended 1,000 mg PO .pm #90 tab 04/03/21 04/03/21 Unknown Rx release 24 hr pantoprazole 20 mg tablet,delayed See Rx Instructions .ROUTE 04/03/21 Unknown History release .COMPLEX PRN tab carvedilol 12.5 mg tablet See Rx Instructions .ROUTE 05/08/21 Unknown Rx .COMPLEX #180 tab promethazine 25 mg tablet See Rx Instructions .ROUTE 05/08/21 Unknown Rx .COMPLEX #90 tab calcium carbonate-simethicone 1 tab PO TID PRN 7 Days #21 tab 05/29/21 Unknown Rx [Maalox Advanced] famotidine [Pepcid] 20 mg PO BID PRN 10 Days #20 tab 05/29/21 Unknown Rx ondansetron HCl [Zofran] 4 mg PO TID PRN 4 Days #12 tab 05/29/21 Unknown Rx Allergies Allergy/AdvReac Type Severity Reaction Status Date / Time butorphanol [From Stadol] Allergy SWELLING Verified 04/03/21 13:57 AND LESIONS latex Allergy rash Verified 04/03/21 13:57 PFSH Acute PFSH: Medical History Asthma Chronic GERD COPD (chronic obstructive pulmonary disease) Depression Diabetes type 2, controlled Dyslipidemia associated with type 2 diabetes mellitus Elevated liver enzymes Hypertension Hypothalamic hypothyroidism Thoracic back pain She has had some thoracic back pain and when she bends over sometimes she has a hard time straightening up however this is not as new is the fatigue and the burning sensation has had in her face and she thinks it might be related to either the clonidine or the Lopid that she started at the same time she stopped her Metformin. Wellness examination Surgical History History of appendectomy History of back surgery History of cholecystectomy History of neck surgery History of tubal ligation Social History Smoking and tobacco status: current every day smoker cigarettes Packs smoked per day: 0.5 Second hand smoke exposure: Yes Alcohol intake: never Vitals/I&O/Wt Last Vital Signs Pulse 55 L 05/29/21 04:02 Resp 22 H 05/29/21 04:10 BP 166/96 05/29/21 01:21 Pulse Ox 97 05/29/21 04:02 05/28/21 05/28/21 05/29/21 14:59 22:59 06:59 Intake Total 1999 Balance 1999 Weight last 48 hrs Weight 79.379 kg Data : 05/29/21 01:50 05/29/21 01:50 Micro: Microbiology 05/29/21 05:24 Blood Culture - Preliminary Blood SPECIMEN COLLECTED 05/29/21 04:45 Blood Culture - Preliminary Blood SPECIMEN COLLECTED Attestation for Other Data: I personally reviewed and interpreted the following: Other data: Laboratory Results WBC 12.0 10^3/uL (4.0-10.0) H 05/29/21 01:50 RBC 4.23 10^6/uL (4.1-5.3) 05/29/21 01:50 Hgb 13.4 g/dL (11.5-15.3) 05/29/21 01:50 Hct 38.3 % (37.0-47.0) 05/29/21 01:50 MCV 90.5 fl (81-99) 05/29/21 01:50 MCH 31.7 pg (28.0-34.0) 05/29/21 01:50 MCHC 35.0 g/dL (30.0-36.0) 05/29/21 01:50 RDW 12.6 % (12.1-15.1) 05/29/21 01:50 Plt Count 219 10^3/cmm (130-400) 05/29/21 01:50 MPV 12.2 fL (7.4-10.4) H 05/29/21 01:50 Neut % (Auto) 71.0 % 05/29/21 01:50 Lymph % (Auto) 18.2 % 05/29/21 01:50 [place] % (Auto) 7.4 % 05/29/21 01:50 Eos % (Auto) 2.2 % 05/29/21 01:50 Baso % (Auto) 0.7 % 05/29/21 01:50 Neut # (Auto) 8.55 10^3/uL (1.8-7.7) H 05/29/21 01:50 Lymph # (Auto) 2.2 10^3/uL (0.8-4.8) 05/29/21 01:50 [place] # (Auto) 0.9 10^3/uL (0.2-0.9) 05/29/21 01:50 Eos # (Auto) 0.3 10^3/uL (0.0-0.8) 05/29/21 01:50 Baso # (Auto) 0.1 10^3/uL (0.0-0.1) 05/29/21 01:50 Nucleated RBC % (auto) 0 % 05/29/21 01:50 Nucleated RBCs # 0.0 /100WBC 05/29/21 01:50 Sodium 137 mmol/L (136-145) 05/29/21 01:50 Potassium 3.7 mmol/L (3.5-5.1) 05/29/21 01:50 Chloride 98 mmol/L (98-107) 05/29/21 01:50 Carbon Dioxide 25 mmol/L (22-29) 05/29/21 01:50 Anion Gap 17.7 (5-19) 05/29/21 01:50 BUN 16 mg/dL (6-20) 05/29/21 01:50 Creatinine 0.8 mg/dL (0.5-0.9) 05/29/21 01:50 GFR Calculation 76.6 mL/min (90-130) L 05/29/21 01:50 Glucose 150 mg/dL (65-115) H 05/29/21 01:50 Calculated Osmolality 288 mOsm/kg (285-295) 05/29/21 01:50 Lactic Acid 0.9 mmol/L (0.5-2.2) 05/29/21 04:45 Calcium 9.9 mg/dL (8.5-10.5) 05/29/21 01:50 Total Bilirubin 0.3 mg/dL (0.15-1.2) 05/29/21 01:50 AST 73 U/L (0-32) H 05/29/21 01:50 ALT 45 U/L (0-33) H 05/29/21 01:50 Alkaline Phosphatase 163 IU/L (35-105) H 05/29/21 01:50 Total Protein 8.0 g/dL (6.6-8.7) 05/29/21 01:50 Albumin 4.7 g/dL (3.5-5.2) 05/29/21 01:50 Globulin 3.3 g/dL (1.3-4.6) 05/29/21 01:50 Lipase 1240 U/L (13-60) H 05/29/21 01:50 Urine Color Yellow (Yellow) 05/29/21 04:10 Urine Appearance Clear (CLEAR) 05/29/21 04:10 Urine pH 5 (5-7) 05/29/21 04:10 Ur Specific [place] 1.010 (1.005-1.030) 05/29/21 04:10 Urine Protein Neg (Negative) 05/29/21 04:10 Urine Glucose (UA) Norm (Normal) 05/29/21 04:10 Urine Ketones Negative (Negative) 05/29/21 04:10 Urine Blood Neg (Negative) 05/29/21 04:10 Urine Nitrate Negative (Negative) 05/29/21 04:10 Urine Bilirubin Neg (Negative) 05/29/21 04:10 Urine Urobilinogen Norm mg/dL (Negative) 05/29/21 04:10 Ur Leukocyte Esterase Negative (Negative) 05/29/21 04:10 Urine HCG, Qual Negative (Negative) 05/29/21 04:10 Urine Opiates Screen Positive ng/mL (Negative) H 05/29/21 04:10 Ur Barbiturates Screen Negative ng/mL (Negative) 05/29/21 04:10 Ur Phencyclidine Scrn Negative ng/mL (Negative) 05/29/21 04:10 Ur Amphetamines Screen Negative ng/mL (Negative) 05/29/21 04:10 U Benzodiazepines Scrn Negative ng/mL (Negative) 05/29/21 04:10 Urine Cocaine Screen Negative ng/mL (Negative) 05/29/21 04:10 U Marijuana (THC) Screen Negative ng/mL (Negative) 05/29/21 04:10 Ethyl Alcohol < 10 mg/dL (0-10) 05/29/21 01:50 Impressions Abdomen/Pelvis CT 05/29/21 01:59 IMPRESSION: 1. Acute pancreatitis without necrosis. 2. Mild constipation. 3. The appendix is not positively identified. However, no secondary changes of appendicitis are present. Radiation Dose CTDIVOL = (mGy): DLP = 1673.06 (mGy-cm) A&P Assessment and plan (1) Pancreatitis: Admit in observation IVF NS @ 125 cc/hr NPO for now, slowly advance diet to clears when tolerated prn morphine for pain control check Triglyceride level, alcohol level, drug screen CT abdomen without signs of necrosis, s/p cholecytectomy, mild biliary dilatation thought related to post kranthi state. ALP not significantly elevated over baseline. Monitor LFT closely. Status: Acute Qualifiers: Acute pancreatitis complication: no infection or necrosis Chronicity: acute Pancreatitis type: unspecified pancreatitis type Qualified Code(s): K85.90 - Acute pancreatitis without necrosis or infection, unspecified Additional A&P Information HTn: continue home dose of clonidine hypothyroidism; continue levothyroxine Attestations Medical Necessity Statement*: antcipate less than 2 midnight stay for above defined care Coding Level of Care Code Acute Guest Services Assistant for [facility] Diagnoses Pancreatitis K85.90 Acute pancreatitis complication: no infection or necrosis Chronicity: acute Pancreatitis type: unspecified pancreatitis type
[2021-05-29] MEDS: ondansetron 2 mg/ML SDV 2 mL 4 MG IVP ×2 (06:14→11:00)
[2021-05-29 06:38] LABS: Alcohol Level < 10 mg/dL (0-10)
[2021-05-29 06:41] LABS: Amphetamines Screen Urine Negative (Negative); Barbiturates Screen Urine Negative (Negative); Benzodiazepines Screen Urine Negative (Negative); Cocaine Screen Urine Negative (Negative); Opiate Screen Urine Positive (Negative); PCP Screen Urine Negative (Negative); THC Screen Urine Negative (Negative)
[2021-05-29] MEDS: hyDRALAzine 20 mg/mL INJ 1 mL 10 MG IVP (06:46)
[2021-05-29] MEDS: amlodipine 5 mg Tablet PO (06:47)
[2021-05-29 07:23] LABS: Triglycerides 329 mg/dL (0-150)
[2021-05-29] MEDS: sodium chloride 0.9% 1,000 ML 125 ML IV ×2 (08:25→15:10)
[2021-05-29] MEDS: cloNIDine 0.1 mg Tablet PO ×3 (08:27→20:08)
[2021-05-29] MEDS: carvedilol 12.5 mg Tablet PO (08:27)
[2021-05-29] MEDS: levothyroxine 150 mcg Tablet 75 MCG PO (08:56)
[2021-05-29] MEDS: buPROPion SR (12 HR) 100 mg Tablet 200 MG PO ×2 (08:56→17:53)
[2021-05-29] MEDS: famotidine 20 mg/2 mL INJ IVP ×2 (08:56→20:07)
[2021-05-29] MEDS: enoxaparin 40 mg/0.4 mL Syringe SUBCUT (08:56)
--- NOTE | 2021-05-29 09:25 | PC.CHAP ---
Pastoral Care Encounter/Spiritual Assessment Type of Contact [] Declined propeller layout worker visit [] Patient/Family/Request visit [] Outpatient visit [] Follow-up visit [] Physician referral [] Code/Alert [x] Routine visit [] Staff referral [] Actively dying [x]x Patient sleeping [] Family support [] [] Out of room [] Palliative care [] [] Receiving care in room [] Pre-surgical visit [] Trauma [] Long length of stay [] ICU visit [] Other: Relational/Emotional Strength [] Patient feels connected with others/family/visitors/staff [] Distress [] Loneliness/isolation [] Abandonment Spirituality of Patient [] Person of Karina [] Attends Evangelical of their Karina [] Believes in Prayer [] Reads Bible or Mandaen materials [] There are Spiritual issues to be addressed Music Therapy Teacher Interventions [] Prayer [] Active listening [] Non-anxious presence [] Spiritual/emotional support [] Crisis/trauma care [] Spiritual counseling [] Bereavement support [] Provided bereavement packet [] Provided Bible/devotional materials [] Provided toy/stuffed animal, coloring book to patient or family member [] Provided Communion [] Anointing/[facility] [] Salvation [x] Completed spiritual assessment [] Other: Impact on Illness or Injury [] Angry [] Fearful [] Anxious [] Often cries [] Exhaustion [] Unable to work [] Unable to attend islam [] Unable to walk/stand [] Unable to read [] Unable to drive [] Unable to eat/drink [] Unable to sleep [] Unable to be with family [] Patient intubated [] Other: Summary Time spent with patient
[2021-05-29 10:30] LABS: Iron 77 ug/dL (37-145); Percent Saturation 19.4 % (20-50); Total Iron Binding Capacity 395 mcg/dl; Unsaturated Iron Binding 318 ug/dL (112-347)
--- NOTE | 2021-05-29 11:09 | PC.NURSE ---
Pain and Nausea Patient had episode of vomiting- 100ml of undigested food. Administered ondasteron 4mg IVP. Patient resting in bed comfortably after infusion.
--- NOTE | 2021-05-29 12:04 | PC.PHAR ---
pt states she takes care of her own medications-pt states she is still taking levothyroxine 75mcg last filled on 12/16/20 90d/s pt states she had a build up of this medication-pt states metformin 500mg daily last filled 09/24/20 90d/s and chlorthalidone 25mg daily filled on 11/12/20 90d/s were both dced
--- NOTE | 2021-05-29 14:01 | PM.PN ---
Subjective Subjective: Interval history: Admitted overnight. Examination complaining of abdominal pain. States she had pancreatitis on 20 years ago. Denies any nausea or vomiting. Complaining of abdominal pain not taking care with morphine. Has remained afebrile and hemodynamically stable. Vitals/I&O/Wt Last Vital Signs Temp 98.1 F 05/29/21 11:33 Pulse 65 05/29/21 11:33 Resp 17 05/29/21 11:33 BP 176/111 05/29/21 11:33 Pulse Ox 94 05/29/21 11:33 05/28/21 05/29/21 05/29/21 22:59 06:59 14:59 Intake Total 1999 Balance 1999 Weight last 48 hrs Weight 83.149 kg Weight 79.379 kg Physical Exam Narrative: EXAM NARRATIVE: General: No acute distress, AO x3 HEENT: PERRLA, pupils bilaterally equal and reactive Chest: Normal vesicular breath sounds, no added sounds, equal good air entry bilaterally CVS: S1-S2 regular, no murmurs, no tachycardia, no gallops, no rubs Abdomen: Soft, tender in epigastric area, no organomegaly, bowel sounds present but sluggish Neuro: No focal deficits, no facial deformity, AO x3, power 5/5 in all limbs Data : 05/29/21 01:50 05/29/21 01:50 Micro: Microbiology 05/29/21 05:24 Blood Culture - Preliminary Blood SPECIMEN COLLECTED 05/29/21 04:45 Blood Culture - Preliminary Blood SPECIMEN COLLECTED A&P Assessment and plan (1) Pancreatitis: Status: Acute Qualifiers: Acute pancreatitis complication: no infection or necrosis Chronicity: acute Pancreatitis type: unspecified pancreatitis type Qualified Code(s): K85.90 - Acute pancreatitis without necrosis or infection, unspecified (2) Dyslipidemia associated with type 2 diabetes mellitus: Status: Acute (3) Hypertension: Status: Acute Qualifiers: Hypertension type: essential hypertension Qualified Code(s): I10 - Essential (primary) hypertension (4) Elevated liver enzymes: Seems have been chronically elevated. Check hepatitis, HIV. Check VAMSI panel rule out autoimmune hepatitis versus pancreatitis, alpha-1 antitrypsin, celiac disease Status: Acute Additional A&P Information Pancreatitis: Unknown etiology. History of cholecystectomy, alcohol and drug screen negative on admission, states no changes in medications recently. Denies any nausea or vomiting. Start on clear liquid diet. Will advance diet very gradually depending on her symptoms. Switch from morphine to Dilaudid 0.5 every 4 hourly. Normal saline at 125 cc/h. Repeat BMP tomorrow. Hypertension: Uncontrolled. Continue with home dose of Coreg. Increase clonidine to 0.1 mg 3 times a day. Add amlodipine 5 mg daily. Will uptitrate medications keeping goal less than 140/90 mmHg. Check echocardiogram. Restart other chronic home medications. FC Clear liquid diet. Lovenox for DVT prophylaxis. Famotidine for PUD prophylaxis. Attestations Medical Necessity Statement*: Cynthia Roblero is being changed to inpatient status as stay will now exceed 2 midnights. Ongoing hospital care is necessary for poor oral intake as unable to tolerate oral diet, pain control requiring IV medications Time Spent in Patient Care: Greater than 35 minutes (>than 50% of time spent in counselling and/or direct pt care on unit). Coding Level of Care Code Acute Mogul Operator for Kylah Munoz Diagnoses Pancreatitis K85.90 Acute pancreatitis complication: no infection or necrosis Chronicity: acute Pancreatitis type: unspecified pancreatitis type Dyslipidemia associated with type 2 diabetes mellitus E11.69; E78.5 Hypertension I10 Hypertension type: essential hypertension Elevated liver enzymes R74.8
--- NOTE | 2021-05-29 14:09 | USCV_ITS ---
Cynthia Roblero Age: 46 Gender: F : 1975 Exam Date: 05/29/2021 14:43 Ordering Phys: Oumar Estevez MD Technologist: Exam Location: [facility] [place] Indication: POST STEM BP: 176 / 111 HR: 69 Rhythm: Sinus Technical Quality: Adequate MEASUREMENTS (Male / Female) Normal Values 2D ECHO LV Diastolic Diameter PLAX 3.5 cm 4.2 - 5.9 / 3.9 - 5.3 cm LV Systolic Diameter PLAX 2.3 cm IVS Diastolic Thickness 0.8 cm 0.6 - 1.0 / 0.6 - 0.9 cm IVS Systolic Thickness 1.1 cm LVPW Diastolic Thickness 0.9 cm 0.6 - 1.0 / 0.6 - 0.9 cm LVPW Systolic Thickness 1.1 cm LVOT Diameter 2.0 cm LV Ejection Fraction 2D Teich 57.6 % LV Ejection Fraction MOD 2C 63.7 % LV Ejection Fraction 2C AL 63.9 % LA Diameter 2.9 cm LA Width 2.6 cm LA Height 5.0 cm RA Width 3.1 cm RA Height 5.0 cm Aorta at Sinotubular Diameter 2.4 cm DOPPLER AV Peak Velocity 142.7 cm/s LVOT Peak Velocity 117.0 cm/s AV Area Cont Eq vti 2.6 cm squared AV Area Cont Eq pk 2.6 cm squared MV Area PHT 5.0 cm squared Mitral E to A Ratio 0.8 MV E' Velocity 40.5 cm/s Mitral E to MV E' Ratio 9.2 Mitral E to LV E' Lateral Ratio 10.0 Mitral E to LV E' Septal Ratio 8.4 TR Peak Velocity 148.3 cm/s TR Peak Gradient 8.8 mmHg TV Peak E Velocity 76.0 cm/s Right Atrial Pressure 3.0 mmHg Pulmonary Artery Systolic Pressu 11.8 mmHg FINDINGS Left Ventricle Normal left ventricular size. LV systolic function is normal with EF of 55-60%. No regional wall motion abnormalities. Grade 1 diastolic dysfunction Right Ventricle The right ventricle is normal in size and function. Right Atrium The right atrium is normal in size. Left Atrium The left atrium is normal in size. Mitral Valve Structurally normal mitral valve without significant stenosis or prolapse. There is no mitral regurgitation. Aortic Valve Structurally normal aortic valve without significant sclerosis or stenosis. There is no aortic regurgitation. Tricuspid Valve Structurally normal tricuspid valve without significant stenosis. Trace tricuspid regurgitation. Insufficient TR jet to calculate RVSP Pulmonic Valve Not well visualized Pericardium Normal pericardium without effusion. Aorta Normal ascending aorta dimension. CONCLUSIONS LV systolic function is normal with EF of 55-60% Grade 1 diastolic dysfunction Trace tricuspid regurgitation Compared to prior echocardiogram from 2012, no significant changes are noted Emmanuel Lantigua MD (Electronically Signed) Final Date: 03 June 2021 10:52 S
[2021-05-29 15:15] LABS: Gamma Glutamyl Transferase 32 U/L (5-36)
[2021-05-29 15:31] LABS: HIV 1 & 2 Antibody Non-Reactive (Non-Reactiv); HIV 1 & 2 Antigen Non-Reactive (Non-Reactiv)
[2021-05-29 15:36] LABS: Lactate Dehydrogenase 230 U/L (135-214)
[2021-05-29 16:21] LABS: Hepatitis A Antibody IgM Non-Reactive (Nonreactive); Hepatitis B Core AB, Total Non-Reactive (Nonreactive); Hepatitis B Surface AB 3.5 (11.5-1000); Hepatitis B Surface Antigen Non-Reactive (Nonreactive); Hepatitis C Virus Antibody Non-Reactive (Nonreactive)
[2021-05-29] MEDS: gemfibrozil 600 mg Tablet PO (17:53)
[2021-05-29 21:21] LABS: Glucose Point of Care 108 mg/dL (70-110)
[2021-05-30] VITALS (15 sets, daily range): BP systolic 88–139; BP diastolic 54–81; PULSE 58–90; RESP 16–18; TEMP 36.7–37.6; O2SAT 88–95
[2021-05-30] MEDS: sodium chloride 0.9% 1,000 ML 125 ML IV ×3 (00:22→14:28)
[2021-05-30] MEDS: HYDROmorphone 1 mg/mL INJ 1 mL 0.5 MG IVP ×5 (00:22→22:45)
[2021-05-30 06:24] LABS: Basophils % 0.4 %; Eosinophils # 0.1 10^3/uL (0.0-0.8); Eosinophils % 0.7 %; Hematocrit 40.4 % (37.0-47.0); Hemoglobin 13.4 g/dL (11.5-15.3); Lymphocytes % 17.4 %; Mean Corpuscular HGB Conc 33.2 g/dL (30.0-36.0); Mean Corpuscular Hemoglobin 31.2 pg (28.0-34.0); Mean Corpuscular Volume 94.2 fl (81-99); Mean Platelet Volume 11.9 fL (7.4-10.4); Monocytes # 0.8 10^3/uL (0.2-0.9); Monocytes % 7.5 %; Neutrophils # 8.27 10^3/uL (1.8-7.7); Neutrophils % 73.6 %; Nucleated Red Blood Cells % 0 %; Platelet Count 193 10^3/cmm (130-400); Red Blood Count 4.29 10^6/uL (4.1-5.3); Red Cell Distribution Width 12.9 % (12.1-15.1); White Blood Count 11.2 10^3/uL (4.0-10.0)
[2021-05-30 06:32] LABS: Glucose Point of Care 111 mg/dL (70-110)
[2021-05-30 06:47] LABS: Alanine Aminotransferase 22 U/L (0-33); Albumin Level 3.4 g/dL (3.5-5.2); Alkaline Phosphatase 123 IU/L (35-105); Anion Gap 15.5 (5-19); Aspartate Amino Transferase 29 U/L (0-32); Blood Urea Nitrogen 11 mg/dL (6-20); Carbon Dioxide 20 mmol/L (22-29); Chloride 105 mmol/L (98-107); Glomerular Filtration Rate 106.7 mL/min (90-130); Glucose 98 mg/dL (65-115); Osmolality Calculated 283 mOsm/kg (285-295); Potassium 3.5 mmol/L (3.5-5.1); Sodium 137 mmol/L (136-145); Total Bilirubin 0.6 mg/dL (0.15-1.2); Total Protein 6.4 g/dL (6.6-8.7)
[2021-05-30] MEDS: buPROPion SR (12 HR) 100 mg Tablet 200 MG PO ×2 (09:05→17:10)
[2021-05-30] MEDS: gemfibrozil 600 mg Tablet PO ×2 (09:05→17:10)
[2021-05-30] MEDS: enoxaparin 40 mg/0.4 mL Syringe SUBCUT (09:05)
--- NOTE | 2021-05-30 09:05 | PC.NURSE ---
i reported the low 02 to the nurse
[2021-05-30] MEDS: cloNIDine 0.1 mg Tablet PO (09:06)
[2021-05-30] MEDS: amlodipine 5 mg Tablet PO (09:07)
[2021-05-30] MEDS: carvedilol 12.5 mg Tablet PO (09:07)
[2021-05-30] MEDS: levothyroxine 150 mcg Tablet 75 MCG PO (09:07)
[2021-05-30] MEDS: famotidine 20 mg/2 mL INJ IVP ×2 (09:38→20:41)
--- NOTE | 2021-05-30 11:58 | PC.SOCIAL ---
Pt didnt Trigger
[2021-05-30 12:37] LABS: Glucose Point of Care 128 mg/dL (70-110)
[2021-05-30 12:46] LABS: Alpha 1 Antitrypsin 210 mg/dL (83-199)
--- NOTE | 2021-05-30 13:22 | P.PN_ITS ---
Subjective Subjective: Interval history: No acute events overnight. Patient states she is feeling better. Tolerating clear liquid diet. States pain is a little better. at bedside. Blood pressure better controlled. Vitals/I&O/Wt Last Vital Signs Temp 99.6 F 05/30/21 12:00 Pulse 58 L 05/30/21 12:00 Resp 16 05/30/21 12:00 BP 91/62 05/30/21 12:00 Pulse Ox 94 05/30/21 12:00 05/29/21 05/30/21 05/30/21 22:59 06:59 14:59 Intake Total 1067.917 / 2993.895 3021.917 / 2735.834 360 / 360 Output Total 320 / 320 Balance 1067.917 / 7773.516 1774.917 / 2415.834 360 / 360 Weight last 48 hrs Weight 83.149 kg Weight 79.379 kg Physical Exam Narrative: EXAM NARRATIVE: General: No acute distress, AO x3 HEENT: PERRLA, pupils bilaterally equal and reactive Chest: Normal vesicular breath sounds, no added sounds, equal good air entry bilaterally CVS: S1-S2 regular, no murmurs, no tachycardia, no gallops, no rubs Abdomen: Soft, tender in epigastric area, no organomegaly, bowel sounds present but sluggish Neuro: No focal deficits, no facial deformity, AO x3, power 5/5 in all limbs Data : 05/30/21 06:06 05/30/21 06:06 Micro: Microbiology 05/29/21 05:24 Blood Culture - Preliminary Blood 05/29/21 04:45 Blood Culture - Preliminary Blood NEGATIVE TO DATE A&P Assessment and plan (1) Pancreatitis: Status: Acute Qualifiers: Acute pancreatitis complication: no infection or necrosis Chronicity: acute Pancreatitis type: unspecified pancreatitis type Qualified Code(s): K85.90 - Acute pancreatitis without necrosis or infection, unspecified (2) Dyslipidemia associated with type 2 diabetes mellitus: Status: Acute (3) Hypertension: Status: Acute Qualifiers: Hypertension type: essential hypertension Qualified Code(s): I10 - Essential (primary) hypertension (4) Elevated liver enzymes: Seems have been chronically elevated. Hepatitis, HIV negative. VAMSI panel, alpha-1 antitrypsin, celiac disease pending. Status: Acute Additional A&P Information Pancreatitis: Unknown etiology. History of cholecystectomy, alcohol and drug screen negative on admission, states no changes in medications recently. Denies any nausea or vomiting. Advance to full liquid diet. Most likely patient will need to advance very gradually from full liquid to mechanical soft as an outpatient within next 1 week. Decrease fluid to 75 cc/h. If continues to have good oral intake and discontinue in the evening. Decrease Dilaudid to 0.5 every 6 hour. Hypertension: Goal blood pressure less than 140/90 [place]. Better controlled. Continue with home dose of Coreg, clonidine at 0.1 mg 3 times a day, amlodipine 5 mg daily. Blood pressure is better controlled. Cardiogram results pending. Restart other chronic home medications. FC liquid diet. Lovenox for DVT prophylaxis. Famotidine for PUD prophylaxis. Attestations Medical Necessity Statement*: Requires further hospitalization for management of pancreatitis while oral intake is advanced. Time Spent in Patient Care: Greater than 35 minutes (>than 50% of time spent in counselling and/or direct pt care on unit) . Coding Level of Care Code Acute Roller Turner for Kylah Munoz Diagnoses Pancreatitis K85.90 Acute pancreatitis complication: no infection or necrosis Chronicity: acute Pancreatitis type: unspecified pancreatitis type Dyslipidemia associated with type 2 diabetes mellitus E11.69; E78.5 Hypertension I10 Hypertension type: essential hypertension Elevated liver enzymes R74.8
--- NOTE | 2021-05-30 14:23 | PC.CHAP ---
Pastoral Care Encounter/Spiritual Assessment Type of Contact [] Declined coffee shop manager visit [] Patient/Family/Request visit [] Outpatient visit [] Follow-up visit [] Physician referral [] Code/Alert [] Routine visit [] Staff referral [] Actively dying [] Patient sleeping [] Family support [] [] Out of room [] Palliative care [] [] Receiving care in room [] Pre-surgical visit [] Trauma [] Long length of stay [] ICU visit [x] Other: under staff care Relational/Emotional Strength [] Patient feels connected with others/family/visitors/staff [] Distress [] Loneliness/isolation [] Abandonment Spirituality of Patient [] Person of Karina [] Attends Presybeterian of their Karina [] Believes in Prayer [] Reads Bible or Muslim materials [] There are Spiritual issues to be addressed Sheet Metal Production Worker Interventions [] Prayer [] Active listening [] Non-anxious presence [] Spiritual/emotional support [] Crisis/trauma care [] Spiritual counseling [] Bereavement support [] Provided bereavement packet [] Provided Bible/devotional materials [] Provided toy/stuffed animal, coloring book to patient or family member [] Provided Communion [] Anointing/[place] [] Salvation [] Completed spiritual assessment [] Other: Impact on Illness or Injury [] Angry [] Fearful [] Anxious [] Often cries [] Exhaustion [] Unable to work [] Unable to attend zoroastrian [] Unable to walk/stand [] Unable to read [] Unable to drive [] Unable to eat/drink [] Unable to sleep [] Unable to be with family [] Patient intubated [] Other: Summary under staff care Time spent with patient 5 mins
[2021-05-30 16:59] LABS: Glucose Point of Care 90 mg/dL (70-110)
[2021-05-30 21:04] LABS: Glucose Point of Care 97 mg/dL (70-110)
[2021-05-31] MEDS: sodium chloride 0.9% 1,000 ML 75 ML IV (03:22)
[2021-05-31 04:00] VITALS: BP 110/71; PULSE 63; RESP 17; TEMP 36.8; O2SAT 91
[2021-05-31 06:51] LABS: Glucose Point of Care 83 mg/dL (70-110)
[2021-05-31 06:51] LABS: Glucose Point of Care 197 mg/dL (70-110)
[2021-05-31 07:07] VITALS: BP 123/80; PULSE 67; RESP 16; TEMP 36.9; O2SAT 96
[2021-05-31] MEDS: gemfibrozil 600 mg Tablet PO (08:15)
[2021-05-31] MEDS: famotidine 20 mg/2 mL INJ IVP (08:16)
[2021-05-31] MEDS: buPROPion SR (12 HR) 100 mg Tablet 200 MG PO (08:16)
[2021-05-31] MEDS: enoxaparin 40 mg/0.4 mL Syringe SUBCUT (08:17)
[2021-05-31] MEDS: levothyroxine 150 mcg Tablet 75 MCG PO (08:17)
[2021-05-31] MEDS: cloNIDine 0.1 mg Tablet PO (08:19)
[2021-05-31 10:57] LABS: Glucose Point of Care 226 mg/dL (70-110)
[2021-05-31 11:03] VITALS: BP 98/67; PULSE 70; RESP 16; TEMP 36.6; O2SAT 95
--- NOTE | 2021-05-31 11:17 | P.DS_ITS ---
Discharge Providers Date of Admission: 05/31/21 09:08 Date of Discharge: May 31, 2021 Attending Provider at Admission: Nadege Yoon MD Attending Provider at Discharge: Oumar Estevez MD Primary Care Provider: Christiano Kendall MD Diagnoses at Discharge Discharge Diagnosis (1) Pancreatitis: Status: Acute Qualifiers: Acute pancreatitis complication: no infection or necrosis Chronicity: acute Pancreatitis type: unspecified pancreatitis type Qualified Code(s): K85.90 - Acute pancreatitis without necrosis or infection, unspecified (2) Dyslipidemia associated with type 2 diabetes mellitus: Status: Acute (3) Hypertension: Status: Acute Qualifiers: Hypertension type: essential hypertension Qualified Code(s): I10 - Essential (primary) hypertension (4) Elevated liver enzymes: Status: Acute Reason for Visit Reason for Visit: Abd Pain Hospital Course Hospital Course Cynthia Roblero is a 46 year old female with PMH hypertension, type 2 diabetes mellitus, dyslipidemia, chronic transaminitis, hypothalamic hypothyroidism, COPD, depression presenting today with abdominal pain that started shortly after dinner overnight. Pain associated with radiation into back and sides. Multiple episodes of nausea and vomiting+. No h/o binge alcohol consumption. Ct today shows acute pancreatitis without signs of necrosis. LFTs mildly deranged, CT abdomen shows post cholecystectomy state with mild biliary dilation thought related to post cholecystectomy. Patient went to the hospital for further management of pancreatitis. She was treated conservatively with keeping noted by mouth, IV hydration and pain management. Gradually her diet was advanced. Patient has been doing well with full liquid diet for last 24 hours. During hospitalization she was found to have elevated blood pressures. She states at home her blood pressures usually run 1 40-1 50 systolic over 110 diastolic. Her antihypertensives were adjusted. Blood work was sent out for further work-up of chronic transaminitis. Hepatitis and HIV came back negative. VAMSI and celiac antibodies are pending. She has been discharged in hemodynamically stable condition with advised to advance diet gradually within next 1 week from full liquid to brat to regular diet. She is advised to eat less spicy and fatty foods. Physical Exam Narrative: EXAM NARRATIVE: General: No acute distress, AO x3 HEENT: PERRLA, pupils bilaterally equal and reactive Chest: Normal vesicular breath sounds, no added sounds, equal good air entry bilaterally CVS: S1-S2 regular, no murmurs, no tachycardia, no gallops, no rubs Abdomen: Soft, tender in epigastric area, no organomegaly, bowel sounds present but sluggish Neuro: No focal deficits, no facial deformity, AO x3, power 5/5 in all limbs Discharge Data Data Completed and Pending: Completed Studies During Hospitalization Category Date Time Status CT abdomen pelvis w con* [id number] Urge nt Cat Scan 05/29/21 01:59 Completed Pending at discharge Category Date Time Status Blood Culture Sta t Lab 05/29/21 05:24 Results Blood Culture Sta t Lab 05/30/21 14:43 Results Celiac Disease Di agniostic Cheng Rout ine Lab 05/29/21 15:20 Received [facility] VAMSI Profile R outine Lab 05/29/21 15:20 Received CV. echo complete * [id number] Routine Ultrasound 05/29/21 14:09 Taken Labs from last 24 hours 05/31/21 05/31/21 05/31/21 10:54 06:44 06:23 POC Glucose 226 H 197 H 83 Zsydb-2-Ubsjsaqqhg n 05/30/21 05/30/21 05/30/21 20:49 16:52 12:32 POC Glucose 97 90 128 H Slqdx-9-Lslmyuqhyd n 05/29/21 15:20 POC Glucose Dojxx-0-Iweusjldex n 210 H Addt'l Data from Hospital Stay: Laboratory Results WBC 11.2 10^3/uL (4.0 -10.0) H 05/30/21 06:06 RBC 4.29 10^6/uL (4.1 -5.3) 05/30/21 06:06 Hgb 13.4 g/dL (11.5-1 5.3) 05/30/21 06:06 Hct 40.4 % (37.0-47.0 ) 05/30/21 06:06 MCV 94.2 fl (81-99) 05/30/21 06:06 MCH 31.2 pg (28.0-34. 0) 05/30/21 06:06 MCHC 33.2 g/dL (30.0-3 6.0) D 05/30/21 06:06 RDW 12.9 % (12.1-15.1 ) 05/30/21 06:06 Plt Count 193 10^3/cmm (130 -400) 05/30/21 06:06 MPV 11.9 fL (7.4-10.4 ) H 05/30/21 06:06 Neut % (Auto) 73.6 % 05/30/21 06:06 Lymph % (Auto) 17.4 % 05/30/21 06:06 [place] % (Auto) 7.5 % 05/30/21 06:06 Eos % (Auto) 0.7 % 05/30/21 06:06 Baso % (Auto) 0.4 % 05/30/21 06:06 Neut # (Auto) 8.27 10^3/uL (1.8 -7.7) H 05/30/21 06:06 Lymph # (Auto) 2.0 10^3/uL (0.8- 4.8) 05/30/21 06:06 [place] # (Auto) 0.8 10^3/uL (0.2- 0.9) 05/30/21 06:06 Eos # (Auto) 0.1 10^3/uL (0.0- 0.8) 05/30/21 06:06 Baso # (Auto) 0.0 10^3/uL (0.0- 0.1) 05/30/21 06:06 Nucleated RBC % (a uto) 0 % 05/30/21 06:06 Nucleated RBCs # 0.0 /100WBC 05/30/21 06:06 Sodium 137 mmol/L (136-1 45) 05/30/21 06:06 Potassium 3.5 mmol/L (3.5-5 .1) 05/30/21 06:06 Chloride 105 mmol/L (98-10 7) 05/30/21 06:06 Carbon Dioxide 20 mmol/L (22-29) L 05/30/21 06:06 Anion Gap 15.5 (5-19) 05/30/21 06:06 BUN 11 mg/dL (6-20) 05/30/21 06:06 Creatinine 0.6 mg/dL (0.5-0. 9) 05/30/21 06:06 GFR Calculation 106.7 mL/min (90- 130) 05/30/21 06:06 Glucose 98 mg/dL (65-115) 05/30/21 06:06 POC Glucose 226 mg/dL (70-110 ) H 05/31/21 10:54 Calculated Osmolal ity 283 mOsm/kg (285- 295) L 05/30/21 06:06 Lactic Acid 0.9 mmol/L (0.5-2 .2) 05/29/21 04:45 Calcium 8.0 mg/dL (8.5-10 .5) L 05/30/21 06:06 Iron 77 ug/dL (37-145) 05/29/21 01:50 TIBC 395 mcg/dl 05/29/21 01:50 % Saturation 19.4 % (20-50) L 05/29/21 01:50 Unsat Iron Binding 318 ug/dL (112-34 7) 05/29/21 01:50 Total Bilirubin 0.6 mg/dL (0.15-1 .2) 05/30/21 06:06 GGT 32 U/L (5-36) 05/29/21 01:50 AST 29 U/L (0-32) 05/30/21 06:06 ALT 22 U/L (0-33) 05/30/21 06:06 Alkaline Phosphata se 123 IU/L (35-105) H 05/30/21 06:06 Lactate Dehydrogen ase 230 U/L (135-214) H 05/29/21 01:50 Total Protein 6.4 g/dL (6.6-8.7 ) L 05/30/21 06:06 Albumin 3.4 g/dL (3.5-5.2 ) L 05/30/21 06:06 Globulin 3.0 g/dL (1.3-4.6 ) 05/30/21 06:06 Lcutj-0-Wwzuidkmqp n 210 mg/dL (83-199 ) H 05/29/21 15:20 Triglycerides 329 mg/dL (0-150) H 05/29/21 01:50 Lipase 1240 U/L (13-60) H 05/29/21 01:50 Urine Color Yellow (Yellow) 05/29/21 04:10 Urine Appearance Clear (CLEAR) 05/29/21 04:10 Urine pH 5 (5-7) 05/29/21 04:10 Ur Specific Gravit y 1.010 (1.005-1.0 30) 05/29/21 04:10 Urine Protein Neg (Negative) 05/29/21 04:10 Urine Glucose (UA) Norm (Normal) 05/29/21 04:10 Urine Ketones Negative (Negati ve) 05/29/21 04:10 Urine Blood Neg (Negative) 05/29/21 04:10 Urine Nitrate Negative (Negati ve) 05/29/21 04:10 Urine Bilirubin Neg (Negative) 05/29/21 04:10 Urine Urobilinogen Norm mg/dL (Negat micaela) 05/29/21 04:10 Ur Leukocyte Bernarda ase Negative (Negati ve) 05/29/21 04:10 Urine HCG, Qual Negative (Negati ve) 05/29/21 04:10 Urine Opiates Scre en Positive ng/mL (N egative) H 05/29/21 04:10 Ur Barbiturates Sc reen Negative ng/mL (N egative) 05/29/21 04:10 Ur Phencyclidine S crn Negative ng/mL (N egative) 05/29/21 04:10 Ur Amphetamines Sc reen Negative ng/mL (N egative) 05/29/21 04:10 U Benzodiazepines Scrn Negative ng/mL (N egative) 05/29/21 04:10 Urine Cocaine Scre en Negative ng/mL (N egative) 05/29/21 04:10 U Marijuana (THC) Screen Negative ng/mL (N egative) 05/29/21 04:10 Ethyl Alcohol < 10 mg/dL (0-10) 05/29/21 01:50 Hepatitis A IgM Ab Non-reactive (No nreactive) 05/29/21 01:50 Hep Bs Antigen Non-reactive (No nreactive) 05/29/21 01:50 Hep Bs Antibody 3.5 (11.5-1000) L 05/29/21 01:50 Hep B Core Total A b Non-reactive (No nreactive) 05/29/21 01:50 Hepatitis C Antibo dy Non-reactive (No nreactive) 05/29/21 01:50 HIV 1&2 Ab & HIV 1 Ag Non-reactive (No n-Reactiv) 05/29/21 01:50 HIV 1&2 Antibody Non-reactive (No n-Reactiv) 05/29/21 01:50 Impressions Abdomen/Pelvis CT 05/29/21 01:59 IMPRESSION: 1. Acute pancreatitis without necrosis. 2. Mild constipation. 3. The appendix is not positively identified. However, no secondary changes of appendicitis are present. Radiation Dose CTDIVOL = (mGy): DLP = 1673.06 (mGy-cm) Vitals: Last Vital Signs Temp 97.9 F 05/31/21 11:03 Pulse 70 05/31/21 11:03 Resp 16 05/31/21 11:03 BP 98/67 05/31/21 11:03 Pulse Ox 95 05/31/21 11:03 Discharge Plan Discharge Patient Disposition: Home Condition: Stable Prescriptions: New Maalox Advanced 1,000-60 mg tablet,chewable 1 tab PO TID PRN (Reason: abdominal pain) 7 Days Qty: 21 RF: 0 Zofran 4 mg tablet 4 mg PO TID PRN (Reason: nausea and vomiting) 4 Days Qty: 12 RF: 0 Continued albuterol sulfate [Ventolin HFA] 90 mcg/actuation HFA aerosol inhaler 2 puff INHALATION QID PRN (Reason: Shortness Of Breath) RF: 0 bupropion HCl 200 mg tablet sustained-release 12 hr 200 mg PO BID Qty: 60 RF: 5 (DME) blood-glucose meter [OneTouch Ultra2 Meter] Misc See Rx Instructions .ROUTE .MEDSUPPLY Qty: 1 RF: 0 (DME) OneTouch Ultra Blue Test Strip Strip See Rx Instructions .ROUTE .MEDSUPPLY Qty: 100 RF: 5 (DME) lancets [OneTouch Delica Plus Lancet] 33 gauge misc See Rx Instructions .ROUTE .MEDSUPPLY Qty: 100 RF: 5 levothyroxine [Synthroid] 75 mcg tablet 75 mcg PO DAILY 90 Days Qty: 90 RF: 1 cyclobenzaprine 10 mg tablet 5 - 10 mg PO TID PRN (Reason: Muscle Spasm) RF: 0 carvedilol 12.5 mg tablet 12.5 mg PO BID RF: 0 hydrocodone-acetaminophen 10-325 mg tablet 1 - 2 tab PO Q4H MDD 5 tabs PRN (Reason: Pain) RF: 0 gemfibrozil 600 mg tablet 600 mg PO BID RF: 0 niacin 1,000 mg tablet extended release 24 hr 1,000 mg PO QPM RF: 0 promethazine 25 mg tablet 25 mg PO TID PRN (Reason: Nausea And Vomiting) RF: 0 Changed clonidine HCl 0.1 mg tablet 0.1 mg PO TID Qty: 60 RF: 5 pantoprazole 20 mg tablet,delayed release (DR/EC) 40 mg PO DAILY Qty: 0 RF: 0 Discharge Orders: Discharge Order (Routine); Ordered 05/31/21 Ordered By: Oumar Estevez Referrals: Christiano Kendall MD [Primary Care Provider] - 7-10 days Discharge Diet: Advance as tolerated Discharge Activity: Resume usual activity Patient Instructions: Pancreatitis (ED), Opioid Safety Activity Restrictions/Additional Instructions: Please advance diet gradually within next 1 week from full liquid to brat to regular diet. She is advised to eat less spicy and fatty foods. Discharge Attestations Time Spent in Discharge Care*: greater than 30 min Specific Discharge Activities: educating patient, discussing with pcp/other providers, discussing with protective services case worker/social workers/dc planners, documenting/other paperwork and evaluating patient/reviewing data Status at Discharge: Cognitive status at discharge: cognitively intact , Behavioral status at discharge: cooperative , Functional status at discharge: independent ambulation Overall status at discharge: patient is back to baseline Quality Metrics Clinical Quality Measures During this hospital stay, did patient experience: None Coding Level of Care Code Acute Chg FW DC note Diagnoses Pancreatitis K85.90 Acute pancreatitis complication: no infection or necrosis Chronicity: acute Pancreatitis type: unspecified pancreatitis type Dyslipidemia associated with type 2 diabetes mellitus E11.69; E78.5 Hypertension I10 Hypertension type: essential hypertension Elevated liver enzymes R74.8
[2021-05-31 14:22] LABS: Anti-Double Strand DNA AB <1 IU/mL; Jo-1 Antibody <1.0 NEG AI (<1.0 NEG); SM/RNP Antibodies <1.0 NEG AI (<1.0 NEG); SS-B/LA IGG <1.0 NEG AI (<1.0 NEG); Scleroderma Ab(Scl-70) Ab <1.0 NEG AI (<1.0 NEG); Ss-A/Ro Igg <1.0 NEG AI (<1.0 NEG)
[2021-06-03 12:56] LABS: Immunoglobulin A 251 mg/dL (47-310)
--- NOTE | 2021-06-03 16:56 | PC.RESP ---
Smoking Cessation and Pulmonary Rehab information sent to patient.
== END 2021-05-31 13:35 | disposition home or self-care (01) | DRG 440 ==
LOC: ER 04:09 → MEDSURG 06:24
PROVIDERS: Physician Assistant; Admitting Provider Student in an Organized Health Care Education/Training Program; Emergency Provider Emergency Medicine; PCP Family Medicine Adult Medicine; Visit Provider Student in an Organized Health Care Education/Training Program
DX: K85.90 Acute pancreatitis without necrosis or infection, unspecified (principal); J44.9 Chronic obstructive pulmonary disease, unspecified; K21.9 Gastro-esophageal reflux disease without esophagitis; F32.9 Major depressive disorder, single episode, unspecified; E11.9 Type 2 diabetes mellitus without complications; E78.5 Hyperlipidemia, unspecified; I10 Essential (primary) hypertension; E03.9 Hypothyroidism, unspecified; M54.6 Pain in thoracic spine; F17.210 Nicotine dependence, cigarettes, uncomplicated; Z79.51 Long term (current) use of inhaled steroids; Z79.891 Long term (current) use of opiate analgesic
CPT/HCPCS: 36415; 36416; 74177; 80053; 80306; 80307; 81003; 81025; 82103; 82784; 82962; 82977; 83516; 83540; 83550; 83605; 83615; 83690; 84478; 85025; 86225; 86235; 86705; 86706; 86709; 86803; 87040; 87077; 87186; 87205; 87340; 87806; 93306; 96361; 96372; 96374; 96375; 99285; G0378; J0360; J1170; J1650; J2270; J2405; J2765; J3490; J7030; Q9967

== ENCOUNTER → 2022-01-31 11:45 | Outpatient (BNVA) | payer MEDICARE, MEDICAID, SELFPAY | PROVIDERS: Visit Provider Family Medicine Adult Medicine | DX: I10 Essential (primary) hypertension (principal); R74.8 Abnormal levels of other serum enzymes; E03.9 Hypothyroidism, unspecified; E11.69 Type 2 diabetes mellitus with other specified complication; E78.5 Hyperlipidemia, unspecified; E11.9 Type 2 diabetes mellitus without complications; K21.9 Gastro-esophageal reflux disease without esophagitis | CPT/HCPCS: 80053; 83036; 84443; 85025 ==

== ENCOUNTER → 2022-05-28 09:09 | Outpatient (BNVA) | payer MEDICARE, MEDICAID, SELFPAY | PROVIDERS: Visit Provider Family Medicine Adult Medicine | DX: I10 Essential (primary) hypertension (principal); R74.8 Abnormal levels of other serum enzymes; E03.9 Hypothyroidism, unspecified; E11.69 Type 2 diabetes mellitus with other specified complication; E11.9 Type 2 diabetes mellitus without complications; E78.5 Hyperlipidemia, unspecified | CPT/HCPCS: 80053; 83036; 84443; 85025 ==

== ENCOUNTER 2022-06-09 21:35 | Emergency (ER) | payer MEDICARE, MEDICAID, SELFPAY ==
[2022-06-09 21:50] VITALS: BP 121/81; PULSE 61; RESP 16; TEMP 36.8; O2SAT 98
--- NOTE | 2022-06-09 22:22 | CTR_ITS ---
PROCEDURE INFORMATION: Exam: CT Abdomen And Pelvis Without Contrast Exam date and time: 06/09/2022 11:35 PM Age: 47 years old Clinical indication: Abdominal pain; Generalized; Prior surgery; Surgery type: Gb. Spinal stimulator; Patient HX: C/O severe diffuse abd pain. TECHNIQUE: Imaging protocol: Computed tomography of the abdomen and pelvis without contrast. Radiation optimization: All CT scans at this facility use at least one of these dose optimization techniques: automated exposure control; mA and/or kV adjustment per patient size (includes targeted exams where dose is matched to clinical indication); or iterative reconstruction. COMPARISON: CT abdomen pelvis w con* [id number] 05/29/2021 2:14 AM RADIATION DOSE METRICS: Total DLP (mGy-cm): 765.11 FINDINGS: Liver: Normal. No mass. Gallbladder and bile ducts: Cholecystectomy. Common bile duct dilated to 11.7 mm without obstructing lesion seen, MRCP could further evaluate this. Cholecystectomy. Pancreas: Large amount of edema about pancreatic head and duodenum reflective of pancreatitis/duodenitis. Spleen: Normal. No splenomegaly. Adrenal glands: Normal. No mass. Kidneys and ureters: Normal. No hydronephrosis. Stomach and bowel: Constipation. Appendix: No evidence of appendicitis. Intraperitoneal space: Unremarkable. No free air. No significant fluid collection. Vasculature: Unremarkable. No abdominal aortic aneurysm. Lymph nodes: Unremarkable. No enlarged lymph nodes. Urinary bladder: Unremarkable as visualized. Reproductive: Unremarkable as visualized. Bones/joints: Unremarkable. No acute fracture. Spinal stimulator. Soft tissues: 16 mm rounded calcification in the right abdomen, may reflect a calcified lymph node or perhaps a dropped gallstone, similar to prior exam. CT/CT abdomen pelvis con [id number] IMPRESSION: 1. Large amount of edema about pancreatic head and duodenum reflective of pancreatitis/duodenitis. 2. Cholecystectomy. 3. Common bile duct dilated to 11.7 mm without obstructing lesion seen, MRCP could further evaluate this. 4. Cholecystectomy. 5. Constipation. 6. 16 mm rounded calcification in the right abdomen, may reflect a calcified lymph node or perhaps a dropped gallstone, similar to prior exam.
--- NOTE | 2022-06-09 22:24 | ED_ITS ---
Documented by User: Jacy Feliciano MD 06/09/22 22:26 HPI - Abdominal Pain General: Chief Complaint: Abdominal Pain Stated Complaint: abd pain Time Seen by Provider: 06/09/22 21:43 Source: patient Mode of arrival: ambulatory Limitations: no limitations History of Present Illness: 47-year-old female states she has been having epigastric abdominal pain over the last day. States it severe in nature rates it a 9 out of 10 she had nausea she states she had pancreatitis twice before and this feels the same. Denies any radiation of her pain denies any chest pain denies any fevers. Associated Symptoms: Reports nausea; Denies chills, dysuria and fever(s) Review of Systems Const: Denies: fever(s), chills, body aches or change in appetite Eyes: Denies: blurry vision or eye discomfort ENMT: Denies: throat pain or dental pain Card: Denies: chest pain Resp: Denies: dyspnea GI: Reports: abdominal pain and nausea : Denies: dysuria Musc: Denies: neck pain or back pain Skin/Breast: Denies: rash Neuro: Denies: headache(s) Psych: Denies: depression [place]/Lymph: Denies: easy bruising All/Imm: Denies: urticaria PFSH ED PFSH: Medical History Anxiety and depression Asthma Chronic GERD Chronic radicular low back pain [facility] - Dr. Brandon Leonardo COPD (chronic obstructive pulmonary disease) Diabetes type 2, controlled Dyslipidemia associated with type 2 diabetes mellitus Elevated liver enzymes Hx of acute pancreatitis ER 05/29/2021 Hypertension Hypothalamic hypothyroidism Smoker unmotivated to quit Thoracic back pain [facility] - Dr. Brandon Leonardo Wellness examination Surgical History History of appendectomy History of back surgery History of cholecystectomy History of neck surgery History of tubal ligation Social History Smoking and tobacco status: current every day smoker cigarettes Packs smoked per day: 0.5 Second hand smoke exposure: Yes Alcohol intake: never Desire information about alcohol rehabilitation?: No Desire information about substance/drug rehabilitation?: No Lives independently: Yes Marital status: Legally Number of children: 4 Current occupational status: disabled Physical Exam Const: COMMON NORMALS: no acute distress, patient oriented x3 and healthy appearing HENMT: COMMON NORMALS: normocephalic and atraumatic HEAD & SCALP: normocephalic and atraumatic Eye: COMMON NORMALS: Equal, round and reactive pupils present and EOMs intact bilaterally PUPIL: Yes Equal, round and reactive pupils present Neck/C-Spine: COMMON NORMALS: full ROM and supple Chest: COMMONS NORMALS: normal inspection of the chest and normal palpation of entire chest wall Resp: COMMON NORMALS: normal respiratory effort, No retractions, No use of accessory muscles and clear to auscultation bilaterally AUSCULTATION: clear to auscultation bilaterally Cardio: COMMON NORMALS: regular rate, regular rhythm and No murmurs present (Cardio) RATE: regular rate RHYTHM: regular rhythm GI: COMMON NORMALS: Normal to inspection, nondistended, normoactive bowel sounds present, Soft to palpation and no masses PALPATION: Yes Soft to palpation OTHER: epigastric tenderness Extremity: COMMON NORMALS: normal to inspection and full ROM Neuro: COMMON NORMALS: patient oriented x3, moves all extremities and no focal motor deficits Psych: COMMON NORMALS: mental status grossly normal, Normal thought process present and cooperative THOUGHT PROCESS: Normal thought process present Skin: COMMON NORMALS: no rashes or lesions noted and no wounds GENERAL SKIN EXAM: no rashes or lesions noted Course Vital Signs: Vital signs: Vital Signs Temperature 98.3 F 06/09/22 21:50 Pulse Rate 53 L 06/10/22 06:32 Respiratory Rate 18 06/10/22 06:32 Blood Pressure 146/105 06/10/22 13:55 Pulse Oximetry 99 06/10/22 13:45 Oxygen Delivery Me thod 06/10/22 06:32 MDM - Abdominal Pain Lab Data 06/09/22 22:31 06/09/22 22:31 Labs/Radiology: Radiology Impressions Abdomen/Pelvis CT 06/09/22 22:22 IMPRESSION: 1. Large amount of edema about pancreatic head and duodenum reflective of pancreatitis/duodenitis. 2. Cholecystectomy. 3. Common bile duct dilated to 11.7 mm without obstructing lesion seen, MRCP could further evaluate this. 4. Cholecystectomy. 5. Constipation. 6. 16 mm rounded calcification in the right abdomen, may reflect a calcified lymph node or perhaps a dropped gallstone, similar to prior exam. Laboratory Results WBC 10.6 10^3/uL (4.0-10.0) H 06/09/22 22: RBC 4.27 10^6/uL (4.1-5.3) 06/09/22 22: Hgb 13.4 g/dL (11.5-15.3) 06/09/22: Hct 40.3 % (37.0-47.0) 06/09/22: MCV 94.4 fl (81-99) 06/09/22: MCH 31.4 pg (28.0-34.0) 06/09/22: MCHC 33.3 g/dL (30.0-36.0) 06/09/22: RDW 13.6 % (12.1-15.1) 06/09/22: Plt Count 232 10^3/cmm (130-400) 06/09/22: MPV 12.3 fL (7.4-10.4) H 06/09/22 22: Neut % (Auto) 65.4 % 06/09/22 22: Lymph % (Auto) 21.7 % 06/09/22: [place] % (Auto) 8.2 % 06/09/22: Eos % (Auto) 3.5 % 06/09/22: Baso % (Auto) 0.6 % 06/09/22: Neut # (Auto) 6.90 10^3/uL (1.8-7.7) 06/09/22: Lymph # (Auto) 2.3 10^3/uL (0.8-4.8) 06/09/22 22: [place] # (Auto) 0.9 10^3/uL (0.2-0.9) 06/09/22: Eos # (Auto) 0.4 10^3/uL (0.0-0.8) 06/09/22: Baso # (Auto) 0.1 10^3/uL (0.0-0.1) 06/09/22: Nucleated RBC % (auto) 0 % 06/09/22: Nucleated RBCs # 0.0 /100WBC 06/09/22 22: Sodium 137 mmol/L (136-145) 06/09/22 22: Potassium 3.7 mmol/L (3.5-5.1) 06/09/22 22: Chloride 102 mmol/L (98-107) 06/09/22 22: Carbon Dioxide 25 mmol/L (22-29) 06/09/22 22: Anion Gap 13.7 (5-19) 06/09/22 22: BUN 11 mg/dL (6-20) 06/09/22: Creatinine 0.7 mg/dL (0.5-0.9) 06/09/22 22: GFR Calculation 88.9 mL/min (90-130) L 06/09/22: Glucose 126 mg/dL (65-115) H 06/09/22 22: Calculated Osmolality 285 mOsm/kg (285-295) 06/09/22: Calcium 9.6 mg/dL (8.5-10.5) 06/09/22 22: Total Bilirubin 0.3 mg/dL (0.15-1.2) 06/09/22 22: AST 57 U/L (0-32) H 06/09/22 22: ALT 38 U/L (0-33) H 06/09/22 22: Alkaline Phosphatase 176 U/L (35-105) H 06/09/22 22: Total Protein 7.9 g/dL (6.6-8.7) 06/09/22 22: Albumin 4.6 g/dL (3.5-5.2) 06/09/22 22: Globulin 3.3 g/dL (1.3-4.6) 06/09/22 22: Lipase 1913 U/L (13-60) H 06/09/22 22:31 Urine Color Colorless (Yellow) 06/10/22 00:15 Urine Appearance Clear (CLEAR) 06/10/22 00:15 Urine pH 6 (5-7) 06/10/22 00:15 Ur Specific [place] 1.015 (1.005-1.030) 06/10/22 00:15 Urine Protein Neg (Negative) 06/10/22 00:15 Urine Glucose (UA) Norm (Normal) 06/10/22 00:15 Urine Ketones Negative (Negative) 06/10/22 00:15 Urine Blood Neg (Negative) 06/10/22 00:15 Urine Nitrate Negative (Negative) 06/10/22 00:15 Urine Bilirubin Neg (Negative) 06/10/22 00:15 Urine Urobilinogen Norm mg/dL (Negative) 06/10/22 00:15 Ur Leukocyte Esterase Negative (Negative) 06/10/22 00:15 Discharge Plan Discharge Patient Disposition: Xfer Intermediate Care Fac Clinical Impression: Pancreatitis, Common bile duct dilatation Condition: Stable Prescriptions: No Action albuterol sulfate [Ventolin HFA] 90 mcg/actuation HFA aerosol inhaler 2 puff INHALATION QID PRN (Reason: Shortness Of Breath) cyclobenzaprine 10 mg tablet 5 - 10 mg PO TID PRN (Reason: Muscle Spasm) hydrocodone-acetaminophen 10-325 mg tablet 1 tab PO 5XD PRN (Reason: Pain) Pepto-Bismol 262 mg/15 mL Suspension 262 - 524 mg PO .ONCE Excedrin Migraine 250-250-65 mg Tablet 1 - 2 tab PO Q6H PRN (Reason: Migraine Headache) clonidine HCl 0.1 mg tablet 0.1 mg PO BID carvedilol 12.5 mg tablet 12.5 mg PO BID Synthroid 75 mcg tablet 75 mcg PO DAILY@07 gemfibrozil 600 mg tablet 600 mg PO BID Paxil 20 mg tablet 20 mg PO BEDTIME promethazine 25 mg tablet 25 mg PO TID PRN (Reason: Nausea And Vomiting) bupropion HCl 300 mg tablet extended release 24 hr 300 mg PO QAM Discharge Orders: Discharge ED (Routine); Ordered 06/10/22 Ordered By: Rachel Mena Referrals: Christiano Kendall MD [Primary Care Provider] - Coding Level of Care Code ED Inventory Control Coordinator for Chg Fwd Exam Comprehensive Documented by User: Rachel Mena MD 06/10/22 14:00 HPI - Abdominal Pain General: Chief Complaint: Abdominal Pain Stated Complaint: abd pain Time Seen by Provider: 06/09/22 21:43 PFSH ED PFSH: Medical History Anxiety and depression Asthma Chronic GERD Chronic radicular low back pain [facility] - Dr. Brandon Leonardo COPD (chronic obstructive pulmonary disease) Diabetes type 2, controlled Dyslipidemia associated with type 2 diabetes mellitus Elevated liver enzymes Hx of acute pancreatitis ER 05/29/2021 Hypertension Hypothalamic hypothyroidism Smoker unmotivated to quit Thoracic back pain [facility] - Dr. Brandon Leonardo Wellness examination Surgical History History of appendectomy History of back surgery History of cholecystectomy History of neck surgery History of tubal ligation Social History Smoking and tobacco status: current every day smoker cigarettes Packs smoked per day: 0.5 Second hand smoke exposure: Yes Alcohol intake: never Desire information about alcohol rehabilitation?: No Desire information about substance/drug rehabilitation?: No Lives independently: Yes Marital status: Legally Number of children: 4 Current occupational status: disabled Course Vital Signs: Vital signs: Vital Signs Temperature 98.3 F 06/09/22 21:50 Pulse Rate 53 L 06/10/22 06:32 Respiratory Rate 18 06/10/22 06:32 Blood Pressure 146/105 06/10/22 13:55 Pulse Oximetry 99 06/10/22 13:45 Oxygen Delivery Me thod 06/10/22 06:32 MDM - Abdominal Pain Medical Decision Making 47-year-old female with a history of pancreatitis who presents today with 24 hours of abdominal pain with associated nausea. No fever. She has been evaluated in the emergency department. She had an IV placed and labs obtained. She has been given IV fluids. She has also had a CT of her abdomen and pelvis. On laboratory evaluation, she does have pancreatitis with a lipase of 1913. White blood cell count is normal. Transaminases her AST is 57, ALT 38. Alk phos 176. Bilirubin 0.3. Patient's had a previous cholecystectomy. CT of the abdomen and pelvis did show changes consistent with pancreatitis and duodenitis with edema around the pancreatic head but also additional, dilation of the common bile duct to 11 mm concerning for a retained common bile duct stone. We do not have the ability to do ERCP here. The patient cannot have an MRCP because she has spinal stimulator in place. We will arrange for transfer to another facility. Have spoken with Dr. Boucher at [facility] who is excepted the patient in transfer. Patient has been given IV fluids as well as IV Dilaudid for pain and Zofran for nausea. She remained stable. Lab Data 06/09/22 22:31 06/09/22 22:31 Labs/Radiology: Radiology Impressions Abdomen/Pelvis CT 06/09/22 22:22 IMPRESSION: 1. Large amount of edema about pancreatic head and duodenum reflective of pancreatitis/duodenitis. 2. Cholecystectomy. 3. Common bile duct dilated to 11.7 mm without obstructing lesion seen, MRCP could further evaluate this. 4. Cholecystectomy. 5. Constipation. 6. 16 mm rounded calcification in the right abdomen, may reflect a calcified lymph node or perhaps a dropped gallstone, similar to prior exam. Laboratory Results WBC 10.6 10^3/uL (4.0-10.0) H 06/09/22 22:31 RBC 4.27 10^6/uL (4.1-5.3) 06/09/22 22:31 Hgb 13.4 g/dL (11.5-15.3) 06/09/22 22: Hct 40.3 % (37.0-47.0) 06/09/22 22: MCV 94.4 fl (81-99) 06/09/22 22: MCH 31.4 pg (28.0-34.0) 06/09/22 22: MCHC 33.3 g/dL (30.0-36.0) 06/09/22 22: RDW 13.6 % (12.1-15.1) 06/09/22 22: Plt Count 232 10^3/cmm (130-400) 06/09/22 22: MPV 12.3 fL (7.4-10.4) H 06/09/22 22: Neut % (Auto) 65.4 % 06/09/22 22: Lymph % (Auto) 21.7 % 06/09/22 22: [place] % (Auto) 8.2 % 06/09/22 22: Eos % (Auto) 3.5 % 06/09/22 22: Baso % (Auto) 0.6 % 06/09/22 22: Neut # (Auto) 6.90 10^3/uL (1.8-7.7) 06/09/22 22: Lymph # (Auto) 2.3 10^3/uL (0.8-4.8) 06/09/22 22: [place] # (Auto) 0.9 10^3/uL (0.2-0.9) 06/09/22 22: Eos # (Auto) 0.4 10^3/uL (0.0-0.8) 06/09/22 22: Baso # (Auto) 0.1 10^3/uL (0.0-0.1) 06/09/22 22: Nucleated RBC % (auto) 0 % 06/09/22 22: Nucleated RBCs # 0.0 /100WBC 06/09/22 22: Sodium 137 mmol/L (136-145) 06/09/22 22: Potassium 3.7 mmol/L (3.5-5.1) 06/09/22 22: Chloride 102 mmol/L (98-107) 06/09/22 22: Carbon Dioxide 25 mmol/L (22-29) 06/09/22 22: Anion Gap 13.7 (5-19) 06/09/22 22: BUN 11 mg/dL (6-20) 06/09/22 22: Creatinine 0.7 mg/dL (0.5-0.9) 06/09/22 22: GFR Calculation 88.9 mL/min (90-130) L 06/09/22 22: Glucose 126 mg/dL (65-115) H 06/09/22 22: Calculated Osmolality 285 mOsm/kg (285-295) 06/09/22 22: Calcium 9.6 mg/dL (8.5-10.5) 06/09/22 22:31 Total Bilirubin 0.3 mg/dL (0.15-1.2) 06/09/22 22: AST 57 U/L (0-32) H 06/09/22 22:31 ALT 38 U/L (0-33) H 06/09/22 22:31 Alkaline Phosphatase 176 U/L (35-105) H 06/09/22 22:31 Total Protein 7.9 g/dL (6.6-8.7) 06/09/22 22:31 Albumin 4.6 g/dL (3.5-5.2) 06/09/22 22: Globulin 3.3 g/dL (1.3-4.6) 06/09/22 22:31 Lipase 1913 U/L (13-60) H 06/09/22 22:31 Urine Color Colorless (Yellow) 06/10/22 00:15 Urine Appearance Clear (CLEAR) 06/10/22 00:15 Urine pH 6 (5-7) 06/10/22 00:15 Ur Specific [place] 1.015 (1.005-1.030) 06/10/22 00:15 Urine Protein Neg (Negative) 06/10/22 00:15 Urine Glucose (UA) Norm (Normal) 06/10/22 00:15 Urine Ketones Negative (Negative) 06/10/22 00:15 Urine Blood Neg (Negative) 06/10/22 00:15 Urine Nitrate Negative (Negative) 06/10/22 00:15 Urine Bilirubin Neg (Negative) 06/10/22 00:15 Urine Urobilinogen Norm mg/dL (Negative) 06/10/22 00:15 Ur Leukocyte Esterase Negative (Negative) 06/10/22 00:15 Other Data spoke with Dr. Boucher at [facility] who accepts the patient for transfer as a direct admit Discharge Plan Discharge Patient Disposition: er Intermediate Care Fac Clinical Impression: Pancreatitis, Common bile duct dilatation Condition: Stable Prescriptions: No Action albuterol sulfate [Ventolin HFA] 90 mcg/actuation HFA aerosol inhaler 2 puff INHALATION QID PRN (Reason: Shortness Of Breath) cyclobenzaprine 10 mg tablet 5 - 10 mg PO TID PRN (Reason: Muscle Spasm) hydrocodone-acetaminophen 10-325 mg tablet 1 tab PO 5XD PRN (Reason: Pain) Pepto-Bismol 262 mg/15 mL Suspension 262 - 524 mg PO .ONCE Excedrin Migraine 250-250-65 mg Tablet 1 - 2 tab PO Q6H PRN (Reason: Migraine Headache) clonidine HCl 0.1 mg tablet 0.1 mg PO BID carvedilol 12.5 mg tablet 12.5 mg PO BID Synthroid 75 mcg tablet 75 mcg PO DAILY@07 gemfibrozil 600 mg tablet 600 mg PO BID Paxil 20 mg tablet 20 mg PO BEDTIME promethazine 25 mg tablet 25 mg PO TID PRN (Reason: Nausea And Vomiting) bupropion HCl 300 mg tablet extended release 24 hr 300 mg PO QAM Discharge Orders: Discharge ED (Routine); Ordered 06/10/22 Ordered By: Rachel Mena Referrals: Christiano Kendall MD [Primary Care Provider] - Coding Level of Care Code ED Inventory Control Coordinator for Chg Fwd Exam Comprehensive
[2022-06-09 22:40] VITALS: BP 110/80; PULSE 57; RESP 19; O2SAT 99
[2022-06-09] MEDS: ondansetron 2 mg/ML SDV 2 mL 4 MG IVP (22:44)
[2022-06-09] MEDS: sodium chloride 0.9% 1,000 ML 999 ML IV (22:45)
[2022-06-09 22:47] VITALS: RESP 19
[2022-06-09 22:47] LABS: Basophils # 0.1 10^3/uL (0.0-0.1); Basophils % 0.6 %; Eosinophils # 0.4 10^3/uL (0.0-0.8); Eosinophils % 3.5 %; Hematocrit 40.3 % (37.0-47.0); Hemoglobin 13.4 g/dL (11.5-15.3); Lymphocytes # 2.3 10^3/uL (0.8-4.8); Lymphocytes % 21.7 %; Mean Corpuscular HGB Conc 33.3 g/dL (30.0-36.0); Mean Corpuscular Hemoglobin 31.4 pg (28.0-34.0); Mean Corpuscular Volume 94.4 fl (81-99); Mean Platelet Volume 12.3 fL (7.4-10.4); Monocytes # 0.9 10^3/uL (0.2-0.9); Monocytes % 8.2 %; Neutrophils % 65.4 %; Nucleated Red Blood Cells % 0 %; Platelet Count 232 10^3/cmm (130-400); Red Blood Count 4.27 10^6/uL (4.1-5.3); Red Cell Distribution Width 13.6 % (12.1-15.1); White Blood Count 10.6 10^3/uL (4.0-10.0)
[2022-06-09] MEDS: HYDROmorphone 1 mg/mL INJ 1 mL IVP (22:47)
[2022-06-09 23:00] VITALS: BP 98/64; PULSE 55; RESP 20; O2SAT 99
[2022-06-09 23:05] LABS: Alanine Aminotransferase 38 U/L (0-33); Albumin Level 4.6 g/dL (3.5-5.2); Alkaline Phosphatase 176 U/L (35-105); Anion Gap 13.7 (5-19); Aspartate Amino Transferase 57 U/L (0-32); Blood Urea Nitrogen 11 mg/dL (6-20); Calcium 9.6 mg/dL (8.5-10.5); Carbon Dioxide 25 mmol/L (22-29); Chloride 102 mmol/L (98-107); Globulin 3.3 g/dL (1.3-4.6); Glomerular Filtration Rate 88.9 mL/min (90-130); Glucose 126 mg/dL (65-115); Osmolality Calculated 285 mOsm/kg (285-295); Potassium 3.7 mmol/L (3.5-5.1); Sodium 137 mmol/L (136-145); Total Bilirubin 0.3 mg/dL (0.15-1.2); Total Protein 7.9 g/dL (6.6-8.7)
[2022-06-09 23:28] LABS: Lipase 1913 U/L (13-60)
[2022-06-10] VITALS (59 sets, daily range): BP systolic 89–146; BP diastolic 50–105; PULSE 51–57; RESP 18–19; TEMP 36.8; O2SAT 96–100
[2022-06-10 00:30] LABS: Add Urine Microscopic? NO; Charge for UA Resulting for Rev
[2022-06-10 00:40] LABS: Bilirubin Urine Neg (Negative); Blood Urine Neg (Negative); Glucose Urine UA Norm (Normal); Ketones Urine Negative (Negative); Leukocyte Esterase Urine Negative (Negative); Nitrate Urine Negative (Negative); Protein Urine Neg (Negative); Specific Gravity, Urine 1.015 (1.005-1.030); Urine Appearance Clear (CLEAR); Urine Color Colorless (Yellow); Urobilinogen Urine Norm (Negative); pH Urine 6 (5-7)
[2022-06-10] MEDS: sodium chloride 0.9% 1,000 ML 999 ML IV (00:53)
[2022-06-10] MEDS: HYDROmorphone 1 mg/mL INJ 1 mL IVP (01:10)
--- NOTE | 2022-06-10 01:27 | PC.NURSE ---
[facility] unable to accept transfer.
--- NOTE | 2022-06-10 01:27 | PC.NURSE ---
[facility] unable to accept transfer. No beds.
--- NOTE | 2022-06-10 01:29 | PC.NURSE ---
[facility] unable to accept transfer. No med surg beds.
--- NOTE | 2022-06-10 01:37 | PC.NURSE ---
[facility] unable to accept transfer. Complete bed hold.
--- NOTE | 2022-06-10 03:16 | PC.NURSE ---
[facility] called for transfer. no beds.
[2022-06-10] MEDS: sodium chloride 0.9% 1,000 ML 150 ML IV ×2 (03:51→10:32)
--- NOTE | 2022-06-10 06:48 | PC.NURSE ---
[facility] to call back with possible bed placement for Pt.
[2022-06-10] MEDS: HYDROmorphone 1 mg/mL INJ 1 mL 0.5 MG IVP ×2 (07:41→13:32)
== END 2022-06-10 14:03 | disposition intermediate care facility (04) ==
PROVIDERS: Emergency Medicine; Emergency Provider Emergency Medicine; PCP Family Medicine Adult Medicine
DX: K85.90 Acute pancreatitis without necrosis or infection, unspecified (principal); K83.8 Other specified diseases of biliary tract
CPT/HCPCS: 74176; 80053; 81003; 83690; 85025; 96361; 96374; 96375; 96376; 99285; J1170; J2405; J7030

== ENCOUNTER 2022-12-12 20:44 | Inpatient (IN) | payer MEDICARE, MEDICAID, SELFPAY ==
[2022-12-12] VITALS (8 sets, daily range): BP systolic 151–223; BP diastolic 98–168; PULSE 60–78; RESP 14–32; TEMP 36.6; O2SAT 98–100
--- NOTE | 2022-12-12 21:28 | W.ED.ABDPA2 ---
HPI - Abdominal Pain General: Chief Complaint: Abdominal Pain Stated Complaint: abd pain Time Seen by Provider: 12/12/22 21:28 History of Present Illness: Ms. Roblero is a 47-year-old lady with history of pancreatitis including history of requiring biliary stent which has been subsequently removed presenting to the emergency department due to abdominal pain and concern for recurrent pancreatitis. Onset of symptoms earlier today with severe epigastric pain rating to the back. Subjective chills and mild shortness of breath as well as nausea which she associates more with pain. No other specific changes in health, exacerbating, or alleviating factors identified. No MRI due to history of spinal cord stimulator. Onset (ago): hour(s) Pain Consistency: constant Location: Epigastric Severity: severe Radiation: back Exacerbating factors: eating Relieving factors: nothing Associated Symptoms: Reports chills and other Review of Systems General: Reports: 10 or more systems reviewed and unremarkable except in HPI and below Const: Reports: chills GI: Reports: other PFS ED PFSH: Medical History (Updated 12/25/22 @ 07:42 by Christiano Kendall MD) Agoraphobia Anxiety and depression Asthma Chronic GERD Chronic radicular low back pain [facility] - Dr. Brandon Leonardo COPD (chronic obstructive pulmonary disease) Diabetes type 2, controlled Dyslipidemia associated with type 2 diabetes mellitus Elevated liver enzymes Hx of acute pancreatitis ER 05/29/2021 Hypertension Hypothalamic hypothyroidism Pancreatitis due to biliary obstruction Smoker unmotivated to quit Thoracic back pain [facility] - Dr. Brandon Leonardo Wellness examination Surgical History History of appendectomy History of back surgery History of cholecystectomy History of neck surgery History of tubal ligation Social History Smoking and tobacco status: current every day smoker cigarettes Packs smoked per day: 0.5 Second hand smoke exposure: Yes Alcohol intake: never Desire information about alcohol rehabilitation?: No Substance/Drug Use: never Desire information about substance/drug rehabilitation?: No Lives independently: Yes Marital status: Legally Number of children: 4 Current occupational status: disabled Physical Exam Const: COMMON NORMALS: alert GENERAL APPEARANCE: cooperative and well developed HENMT: COMMON NORMALS: normocephalic and atraumatic HEAD & SCALP: normocephalic and atraumatic Eye: COMMON NORMALS: conjunctivae normal CONJUNCTIVA: Yes conjunctivae normal SCLERA: sclerae normal Neck/C-Spine: COMMON NORMALS: supple GENERAL: Yes trachea midline Resp: COMMON NORMALS: clear to auscultation bilaterally EFFORT & INSPECTION: Yes able to speak in complete sentences AUSCULTATION: clear to auscultation bilaterally Cardio: COMMON NORMALS: regular rate and regular rhythm RATE: regular rate RHYTHM: regular rhythm GI: COMMON NORMALS: Soft to palpation PALPATION: Yes Soft to palpation, Yes Tenderness to palpation present (GI), Yes Guarding due to palpation present (GI) and No Rigid due to palpation Extremity: GENERAL: Yes normal exam except as noted and No edema Neuro: COMMON NORMALS: moves all extremities SENSORIUM/ORIENTATION: Yes alert and No Orientation impaired Psych: COMMON NORMALS: mental status grossly normal and Normal thought process present THOUGHT PROCESS: Normal thought process present Course Vital Signs: Vital signs: Vital Signs Temperature 98.2 F 12/15/22 07:53 Pulse Rate 68 12/15/22 07:53 Respiratory Rate 18 12/15/22 07:53 Blood Pressure 172/96 12/15/22 07:53 Pulse Oximetry 98 12/15/22 07:53 Oxygen Delivery Me thod Room Air 12/15/22 07:53 MDM - Abdominal Pain Medical Decision Making 47-year-old lady with history of recurrent pancreatitis presenting with epigastric pain. Appears uncomfortable on exam however nontoxic. Abdominal tenderness and guarding without evidence of acute surgical abdomen. Labs notable for minimal leukocytosis, normal hemoglobin and platelet count. Metabolic panel with mild evidence of metabolic stress. Lipase is elevated associated with minimal elevation in liver enzymes however T. bili is normal. No UTI. CT demonstrates pancreatitis. Incidental findings noted. Patient treated during ED course with antiemetic, fluids, multimodal analgesia with only modest improvement in symptoms. Therefore patient still requires IV pain management and fluids in the inpatient setting. The results of ED evaluation were discussed with the patient including plan for admission due to requirement for level of care not available if discharged to prevent significant worsening/deterioration. Patient agreeable with plan. Discussed with hospitalist service who was agreeable to admit patient. Medical Records I reviewed the patient's medical records. Lab Data I reviewed the patient's lab results. 12/15/22 04:32 12/15/22 04:32 Labs/Radiology: Radiology Impressions Abdomen/Pelvis CT 12/12/22 22:59 IMPRESSION: 1. Peripancreatic edema suggestive of pancreatitis. 2. Common bile duct dilated to 2 cm, likely related to prior cholecystectomy. 3. Hepatic steatosis. 4. Left colon wall thickening may be due to nondistention, a colitis is also consideration. 5. Pneumobilia. Laboratory Results WBC 11.2 10^3/uL (4.0-10.0) H 12/12/22 21:54 RBC 5.01 10^6/uL (4.1-5.3) 12/12/22 21:54 Hgb 15.0 g/dL (11.5-15.3) 12/12/22 21:54 Hct 46.1 % (37.0-47.0) 12/12/22 21:54 MCV 92.0 fl (81-99) 12/12/22 21:54 MCH 29.9 pg (28.0-34.0) 12/12/22 21:54 MCHC 32.5 g/dL (30.0-36.0) 12/12/22 21:54 RDW 13.5 % (12.1-15.1) 12/12/22 21:54 Plt Count 258 10^3/cmm (130-400) 12/12/22 21:54 MPV 11.5 fL (7.4-10.4) H 12/12/22 21:54 Neut % (Auto) 65.2 % 12/12/22 21:54 Lymph % (Auto) 22.4 % 12/12/22 21:54 [place] % (Auto) 6.3 % 12/12/22 21:54 Eos % (Auto) 4.4 % 12/12/22 21:54 Baso % (Auto) 1.2 % 12/12/22 21:54 Neut # (Auto) 7.27 10^3/uL (1.8-7.7) 12/12/22 21:54 Lymph # (Auto) 2.5 10^3/uL (0.8-4.8) 12/12/22 21:54 [place] # (Auto) 0.7 10^3/uL (0.2-0.9) 12/12/22 21:54 Eos # (Auto) 0.5 10^3/uL (0.0-0.8) 12/12/22 21:54 Baso # (Auto) 0.1 10^3/uL (0.0-0.1) 12/12/22 21:54 Nucleated RBC % (auto) 0 % 12/12/22 21:54 Nucleated RBCs # 0.0 /100WBC 12/12/22 21:54 Sodium 136 mmol/L (136-145) 12/12/22 21:54 Potassium 4.3 mmol/L (3.5-5.1) 12/12/22 21:54 Chloride 96 mmol/L (98-107) L 12/12/22 21:54 Carbon Dioxide 25 mmol/L (22-29) 12/12/22 21:54 Anion Gap 19.3 (5-19) H 12/12/22 21:54 BUN 14 mg/dL (6-20) 12/12/22 21:54 Creatinine 0.8 mg/dL (0.5-0.9) 12/12/22 21:54 GFR Calculation 76.2 mL/min (90-130) L 12/12/22 21:54 Glucose 239 mg/dL (65-115) H 12/12/22 21:54 Calculated Osmolality 290 mOsm/kg (285-295) 12/12/22 21:54 Calcium 10.1 mg/dL (8.5-10.5) 12/12/22 21:54 Total Bilirubin 0.4 mg/dL (0.15-1.2) 12/12/22 21:54 AST 95 U/L (0-32) H 12/12/22 21:54 ALT 60 U/L (0-33) H 12/12/22 21:54 Alkaline Phosphatase 133 U/L (35-105) H 12/12/22 21:54 Total Protein 8.3 g/dL (6.6-8.7) 12/12/22 21:54 Albumin 4.8 g/dL (3.5-5.2) 12/12/22 21:54 Globulin 3.5 g/dL (1.3-4.6) 12/12/22 21:54 Triglycerides 503 mg/dL (0-150) H 12/12/22 21:54 LDL Cholesterol Direct 214 mg/dL (0-100) H 12/12/22 21:54 Lipase 891 U/L (13-60) H 12/12/22 21:54 HCG, Qual Negative (Negative) 12/12/22 21:54 Urine Color Dark yellow (Yellow) 12/12/22 23:53 Urine Appearance Sl hazy (CLEAR) A 12/12/22 23:53 Urine pH 5 (5-7) 12/12/22 23:53 Ur Specific [place] 1.015 (1.005-1.030) 12/12/22 23:53 Urine Protein Neg (Negative) 12/12/22 23:53 Urine Glucose (UA) Norm (Normal) 12/12/22 23:53 Urine Ketones Negative (Negative) 12/12/22 23:53 Urine Blood Neg (Negative) 12/12/22 23:53 Urine Nitrate Negative (Negative) 12/12/22 23:53 Urine Bilirubin Neg (Negative) 12/12/22 23:53 Urine Urobilinogen Norm mg/dL (Negative) 12/12/22 23:53 Ur Leukocyte Esterase Negative (Negative) 12/12/22 23:53 Discharge Plan Discharge Patient Disposition: Admitted As Inpatient Admit Provider: Nadege Yoon Clinical Impression: Pancreatitis Condition: Stable Discharge Diet: Full LIquid Discharge Activity: Resume usual activity Coding Level of Care Code ED Java Security Engineer for Kylah Munoz
[2022-12-12] MEDS: ondansetron 2 mg/ML SDV 2 mL 4 MG IVP (22:09)
[2022-12-12 22:14] LABS: Basophils # 0.1 10^3/uL (0.0-0.1); Basophils % 1.2 %; Eosinophils # 0.5 10^3/uL (0.0-0.8); Eosinophils % 4.4 %; HCG, Serum Qual Negative (Negative); Hematocrit 46.1 % (37.0-47.0); Lymphocytes # 2.5 10^3/uL (0.8-4.8); Lymphocytes % 22.4 %; Mean Corpuscular HGB Conc 32.5 g/dL (30.0-36.0); Mean Corpuscular Hemoglobin 29.9 pg (28.0-34.0); Mean Platelet Volume 11.5 fL (7.4-10.4); Monocytes # 0.7 10^3/uL (0.2-0.9); Monocytes % 6.3 %; Neutrophils # 7.27 10^3/uL (1.8-7.7); Neutrophils % 65.2 %; Nucleated Red Blood Cells % 0 %; Platelet Count 258 10^3/cmm (130-400); Red Blood Count 5.01 10^6/uL (4.1-5.3); Red Cell Distribution Width 13.5 % (12.1-15.1); White Blood Count 11.2 10^3/uL (4.0-10.0)
[2022-12-12] MEDS: fentaNYL 50 mcg/mL INJ 2mL IVP (22:15)
[2022-12-12] MEDS: lactated ringers 1,000 ML 999 ML IV (22:18)
[2022-12-12 22:20] LABS: Alanine Aminotransferase 60 U/L (0-33); Albumin Level 4.8 g/dL (3.5-5.2); Alkaline Phosphatase 133 U/L (35-105); Anion Gap 19.3 (5-19); Aspartate Amino Transferase 95 U/L (0-32); Blood Urea Nitrogen 14 mg/dL (6-20); Calcium 10.1 mg/dL (8.5-10.5); Carbon Dioxide 25 mmol/L (22-29); Chloride 96 mmol/L (98-107); Globulin 3.5 g/dL (1.3-4.6); Glomerular Filtration Rate 76.2 mL/min (90-130); Glucose 239 mg/dL (65-115); Osmolality Calculated 290 mOsm/kg (285-295); Potassium 4.3 mmol/L (3.5-5.1); Sodium 136 mmol/L (136-145); Total Bilirubin 0.4 mg/dL (0.15-1.2); Total Protein 8.3 g/dL (6.6-8.7)
[2022-12-12 22:30] LABS: Lipase 891 U/L (13-60)
--- NOTE | 2022-12-12 22:59 | CTR_ITS ---
PROCEDURE INFORMATION: Exam: CT Abdomen And Pelvis With Contrast Exam date and time: 12/12/2022 11:23 PM Age: 47 years old Clinical indication: Pain and abnormal findings; Abnormal lab test; Elevated lipase; Abdominal pain; Prior surgery; Surgery date: 6+ months; Surgery type: Gb. Appy. Spinal stimulator. Patient HX: Epigastric pain with elevated lipase. History of pancreatitis with biliary obstruction. ; Additional info: Abd pain, pancreatitis TECHNIQUE: Imaging protocol: Computed tomography of the abdomen and pelvis with contrast. Radiation optimization: All CT scans at this facility use at least one of these dose optimization techniques: automated exposure control; mA and/or kV adjustment per patient size (includes targeted exams where dose is matched to clinical indication); or iterative reconstruction. Contrast material: OMNI 350; Contrast volume: 100 ml; Contrast route: INTRAVENOUS (IV); REPORTING DATA: Count of CT and Cardiac NM exams in prior 12 months: This patient has received [address] and 0 known cardiac nuclear medicine studies in the 12 months prior to the current study. COMPARISON: CT abdomen pelvis wo con [id number] 06/09/2022 11:35 PM RADIATION DOSE METRICS: Total DLP (mGy-cm): 823.53 FINDINGS: Tubes, catheters and devices: Spinal stimulator Liver: Hepatic steatosis. Gallbladder and bile ducts: Common bile duct dilated to 2 cm, likely related to prior cholecystectomy. Pneumobilia. Pancreas: Peripancreatic edema suggestive of pancreatitis. Spleen: Normal. No splenomegaly. Adrenal glands: Normal. No mass. Kidneys and ureters: Normal. No hydronephrosis. Stomach and bowel: Left colon wall thickening may be due to nondistention, a colitis is also consideration. Appendix: No evidence of appendicitis. Intraperitoneal space: Unremarkable. No free air. No significant fluid collection. Vasculature: Unremarkable. No abdominal aortic aneurysm. Lymph nodes: Unremarkable. No enlarged lymph nodes. Urinary bladder: Unremarkable as visualized. Reproductive: Unremarkable as visualized. Bones/joints: Unremarkable. No acute fracture. Soft tissues: Unremarkable. CT/CT abdomen pelvis w con* [id number] IMPRESSION: 1. Peripancreatic edema suggestive of pancreatitis. 2. Common bile duct dilated to 2 cm, likely related to prior cholecystectomy. 3. Hepatic steatosis. 4. Left colon wall thickening may be due to nondistention, a colitis is also consideration. 5. Pneumobilia.
[2022-12-12] MEDS: HYDROmorphone 1 mg/mL INJ 1 mL IVP (23:12)
[2022-12-12] MEDS: iohexol 350 mg/mL 500 mL Btl (per mL) IV (23:25)
[2022-12-12 23:55] LABS: Add Urine Microscopic? NO; Charge for UA Resulting for Rev
[2022-12-12 23:59] LABS: Bilirubin Urine Neg (Negative); Blood Urine Neg (Negative); Glucose Urine UA Norm (Normal); Ketones Urine Negative (Negative); Leukocyte Esterase Urine Negative (Negative); Nitrate Urine Negative (Negative); Protein Urine Neg (Negative); Specific Gravity, Urine 1.015 (1.005-1.030); Urine Appearance SL Hazy (CLEAR); Urine Color Dark Yellow (Yellow); Urobilinogen Urine Norm (Negative); pH Urine 5 (5-7)
[2022-12-13] VITALS (16 sets, daily range): BP systolic 106–193; BP diastolic 73–133; PULSE 59–75; RESP 15–21; TEMP 36.7–37; O2SAT 67–100
--- NOTE | 2022-12-13 01:21 | PC.NURSE ---
THIS RN TO BEDSIDE TO TAKE MANUAL BP. MANUAL BP 184/112. MD NOTIFIED. NO NEW ORDERS RECEIVED AT THIS TIME.
[2022-12-13] MEDS: HYDROmorphone 1 mg/mL INJ 1 mL IVP (01:32)
--- NOTE | 2022-12-13 01:47 | PC.NURSE ---
Manual bp 182/118. MD notified, MD said it is pain related and is not going to treat it. Med surg notified.
--- NOTE | 2022-12-13 02:00 | PC.NURSE ---
RECEIVED REPORT FROM JASMIN HAMILTON IN ER, PT ARRIVED TO THE FLOOR AT 0200.
--- NOTE | 2022-12-13 02:24 | P.HP_ITS ---
Providers/Chief Complaint Admitting Physician: Nadege Yoon MD Primary Care Provider: Christiano Kendall MD Chief Complaint: abd pain History of Present Illness Cynthia Roblero is a 47 year old female with PMH pancreatitis, thought to be hypertriglyceridemia induced vs gallstone pancreatitis, presenting with abdominal pain, nausea, which started a few hrs prior to admission. She has a h/o biliary stenting in the past with some chronic biliary dilatation however appears stent has been removed. CT abdomen today shows evidence of acute pancreatitis. Mildly elevated LFTs. Review of Systems General: Reports: 10 or more systems reviewed and unremarkable except in HPI and below Const: Denies: fever(s), chills or body aches Eyes: Denies: change in vision, blurry vision or photophobia ENMT: Reports: hoarseness; Denies: throat pain, enlarged tonsils, odynophagia or nasal congestion Card: Denies: chest pain, palpitations, irregular heart rhythm, edema, swelling of feet/ankles, lightheadedness, pre-syncope, dyspnea on exertion or orthopnea Resp: Denies: dyspnea, productive cough, non-productive cough, wheezing, stridor, pain on inspiration, change in phlegm color, hemoptysis or chest congestion GI: Denies: abdominal pain, nausea, vomiting, hematemesis, coffee ground emesis, dysphagia, heartburn, diarrhea, constipation, GI cramping, change in stool character, hematochezia or melena : Denies: flank pain, difficulty voiding, dysuria, urinary frequency, urinary urgency, urinary hesitancy or hematuria Musc: Denies: neck pain, back pain, extremity pain, joint swelling, joint warmth or deformity Neuro: Denies: headache(s), numbness in extremities, weakness in extremities, sensory changes, difficulty walking, frequent falls, dizziness, vertigo, behavioral changes, Slurred speech present or seizure-like activity Psych: Denies: anxiety, depression, suicidal ideation or homicidal ideation Endo: Denies: polyuria, polydipsia, tired all the time, cold intolerance or hot flashes [place]/Lymph: Denies: easy bruising or easy bleeding Medications/Allergies Home Medications Medication Instructions Recorded Confirmed Last Taken Type cyclobenzaprine 10 mg tablet 5 - 10 mg PO TID PRN Muscle Spasm 05/29/21 12/13/22 Unknown History [id number] 250 1 - 2 tab PO Q6H PRN Migraine 06/10/22 12/13/22 Unknown History mg-250 mg-65 mg tablet (Excedrin Headache Migraine) clonidine HCl 0.1 mg tablet 0.1 mg PO BID PRN Blood Pressure 06/10/22 12/13/22 Unknown History hydrocodone 10 mg-acetaminophen 1 tab PO 5XD PRN Pain 06/10/22 12/13/22 12/12/22 History 325 mg tablet albuterol sulfate 90 mcg/actuation 2 puff inhalation QID PRN 10/30/22 12/13/22 10/10/22 Rx aerosol inhaler (Ventolin HFA) Shortness Of Breath #8.5 grams carvedilol 12.5 mg tablet 12.5 mg PO BID #180 tabs 10/30/22 12/13/22 12/12/22 08:00 Rx pantoprazole 40 mg tablet,delayed 40 mg PO DAILY PRN acid reflux #30 10/30/22 12/13/22 Unknown Rx release tabs levothyroxine 75 mcg tablet 75 mcg PO DAILY@07 #90 tabs 11/05/22 12/13/22 12/12/22 Rx (Synthroid) promethazine 25 mg tablet 25 mg PO TID PRN Nausea And 11/05/22 12/13/22 Unknown Rx Vomiting #90 tabs bupropion HCl 300 mg 24 hr tablet, 300 mg PO DAILY 12/13/22 12/13/22 12/12/22 History extended release mirtazapine 30 mg tablet 30 mg PO BEDTIME mental health 12/13/22 12/13/22 12/11/22 History Allergies Allergy/AdvReac Type Severity Reaction Status Date / Time butorphanol [From Stadol] Allergy SWELLING Verified 10/30/22 14:25 AND LESIONS latex Allergy rash Verified 10/30/22 14:25 PFSH Acute PFSH: Medical History Agoraphobia Anxiety and depression Asthma Chronic GERD Chronic radicular low back pain [facility] - Dr. Brandon Leonardo COPD (chronic obstructive pulmonary disease) Diabetes type 2, controlled Dyslipidemia associated with type 2 diabetes mellitus Elevated liver enzymes Hx of acute pancreatitis ER 05/29/2021 Hypertension Hypothalamic hypothyroidism Pancreatitis due to biliary obstruction Smoker unmotivated to quit Thoracic back pain [facility] - Dr. Brandon Leonardo Wellness examination Surgical History History of appendectomy History of back surgery History of cholecystectomy History of neck surgery History of tubal ligation Social History Smoking and tobacco status: current every day smoker cigarettes Packs smoked per day: 0.5 Second hand smoke exposure: Yes Alcohol intake: never Desire information about alcohol rehabilitation?: No Substance/Drug Use: never Desire information about substance/drug rehabilitation?: No Lives independently: Yes Marital status: Legally Number of children: 4 Current occupational status: disabled Vitals/I&O/Wt Last Vital Signs Temp 98.2 F 12/13/22 02:03 Pulse 68 12/13/22 02:03 Resp 20 H 12/13/22 02:03 BP 171/105 12/13/22 02:03 Pulse Ox 99 12/13/22 02:03 O2 Del Method Room Air 12/13/22 02:12 12/12/22 12/12/22 12/13/22 14:59 22:59 06:59 Intake Total 1000 / 1000 Balance 1000 / 1000 Weight last 48 hrs Weight 81.647 kg Physical Exam Narrative: General: No acute distress, AO x3 HEENT: PERRLA, pupils bilaterally equal and reactive, pallors not present Chest: Normal vesicular breath sounds, no added sounds, equal good air entry bilaterally CVS: S1-S2 regular, no murmurs, no tachycardia, no gallops, no rubs Abdomen: Soft, tender to palpation epigatsric area , no organomegaly, bowel sounds present Neuro: No focal deficits, no facial deformity, AO x3, power 5/5 in all limbs Data 12/12/22 21:54 12/12/22 21:54 Micro: Microbiology 12/12/22 22:23 Blood Culture - Preliminary Blood SPECIMEN COLLECTED 12/12/22 21:54 Blood Culture - Preliminary Blood SPECIMEN COLLECTED Other data: Radiology Impressions Abdomen/Pelvis CT 12/12/22 22:59 IMPRESSION: 1. Peripancreatic edema suggestive of pancreatitis. 2. Common bile duct dilated to 2 cm, likely related to prior cholecystectomy. 3. Hepatic steatosis. 4. Left colon wall thickening may be due to nondistention, a colitis is also consideration. 5. Pneumobilia. Laboratory Results WBC 11.2 10^3/uL (4.0-10.0) H 12/12/22 21:54 RBC 5.01 10^6/uL (4.1-5.3) 12/12/22 21:54 Hgb 15.0 g/dL (11.5-15.3) 12/12/22 21:54 Hct 46.1 % (37.0-47.0) 12/12/22 21:54 MCV 92.0 fl (81-99) 12/12/22 21:54 MCH 29.9 pg (28.0-34.0) 12/12/22 21:54 MCHC 32.5 g/dL (30.0-36.0) 12/12/22 21:54 RDW 13.5 % (12.1-15.1) 12/12/22 21:54 Plt Count 258 10^3/cmm (130-400) 12/12/22 21:54 MPV 11.5 fL (7.4-10.4) H 12/12/22 21:54 Neut % (Auto) 65.2 % 12/12/22 21:54 Lymph % (Auto) 22.4 % 12/12/22 21:54 [place] % (Auto) 6.3 % 12/12/22 21:54 Eos % (Auto) 4.4 % 12/12/22 21:54 Baso % (Auto) 1.2 % 12/12/22 21:54 Neut # (Auto) 7.27 10^3/uL (1.8-7.7) 12/12/22 21:54 Lymph # (Auto) 2.5 10^3/uL (0.8-4.8) 12/12/22 21:54 [place] # (Auto) 0.7 10^3/uL (0.2-0.9) 12/12/22 21:54 Eos # (Auto) 0.5 10^3/uL (0.0-0.8) 12/12/22 21:54 Baso # (Auto) 0.1 10^3/uL (0.0-0.1) 12/12/22 21:54 Nucleated RBC % (auto) 0 % 12/12/22 21:54 Nucleated RBCs # 0.0 /100WBC 12/12/22 21:54 Sodium 136 mmol/L (136-145) 12/12/22 21:54 Potassium 4.3 mmol/L (3.5-5.1) 12/12/22 21:54 Chloride 96 mmol/L (98-107) L 12/12/22 21:54 Carbon Dioxide 25 mmol/L (22-29) 12/12/22 21:54 Anion Gap 19.3 (5-19) H 12/12/22 21:54 BUN 14 mg/dL (6-20) 12/12/22 21:54 Creatinine 0.8 mg/dL (0.5-0.9) 12/12/22 21:54 GFR Calculation 76.2 mL/min (90-130) L 12/12/22 21:54 Glucose 239 mg/dL (65-115) H 12/12/22 21:54 Calculated Osmolality 290 mOsm/kg (285-295) 12/12/22 21:54 Calcium 10.1 mg/dL (8.5-10.5) 12/12/22 21:54 Total Bilirubin 0.4 mg/dL (0.15-1.2) 12/12/22 21:54 AST 95 U/L (0-32) H 12/12/22 21:54 ALT 60 U/L (0-33) H 12/12/22 21:54 Alkaline Phosphatase 133 U/L (35-105) H 12/12/22 21:54 Total Protein 8.3 g/dL (6.6-8.7) 12/12/22 21:54 Albumin 4.8 g/dL (3.5-5.2) 12/12/22 21:54 Globulin 3.5 g/dL (1.3-4.6) 12/12/22 21:54 Triglycerides 503 mg/dL (0-150) H 12/12/22 21:54 LDL Cholesterol Direct 214 mg/dL (0-100) H 12/12/22 21:54 Lipase 891 U/L (13-60) H 12/12/22 21:54 HCG, Qual Negative (Negative) 12/12/22 21:54 Urine Color Dark yellow (Yellow) 12/12/22 23:53 Urine Appearance Sl hazy (CLEAR) A 12/12/22 23:53 Urine pH 5 (5-7) 12/12/22 23:53 Ur Specific [place] 1.015 (1.005-1.030) 12/12/22 23:53 Urine Protein Neg (Negative) 12/12/22 23:53 Urine Glucose (UA) Norm (Normal) 12/12/22 23:53 Urine Ketones Negative (Negative) 12/12/22 23:53 Urine Blood Neg (Negative) 12/12/22 23:53 Urine Nitrate Negative (Negative) 12/12/22 23:53 Urine Bilirubin Neg (Negative) 12/12/22 23:53 Urine Urobilinogen Norm mg/dL (Negative) 12/12/22 23:53 Ur Leukocyte Esterase Negative (Negative) 12/12/22 23:53 Urine Opiates Screen Positive ng/mL (Negative) H 12/13/22 Unknown Ur Barbiturates Screen Negative ng/mL (Negative) 12/13/22 Unknown Ur Phencyclidine Scrn Negative ng/mL (Negative) 12/13/22 Unknown Ur Amphetamines Screen Negative ng/mL (Negative) 12/13/22 Unknown U Benzodiazepines Scrn Negative ng/mL (Negative) 12/13/22 Unknown Urine Cocaine Screen Negative ng/mL (Negative) 12/13/22 Unknown U Marijuana (THC) Screen Negative ng/mL (Negative) 12/13/22 Unknown A&P Assessment and plan (1) Pancreatitis: recurrent pancreatitis currently with abdominal pain and nausea NPO IVF NS @ 125 cc/ hr Pain management with morphine and toradol Biliary dilatation noted, not new however size difference noted from 11mm to 2 cm, pneumobilia+. Will obtain mRCP to further evaluate for biliary obstrcution Transaminitis noted, has been chronic Check TG level no h/o alcohol consumption (2) Dyslipidemia associated with type 2 diabetes mellitus: (3) Elevated liver enzymes: Attestations Medical Necessity Statement*: > 2 midnight admission needed for management of acute pancreatitis Coding Level of Care Code Acute Code for [facility] Diagnoses Pancreatitis K85.90 Dyslipidemia associated with type 2 diabetes mellitus E11.69; E78.5 Elevated liver enzymes R74.8
[2022-12-13] MEDS: enoxaparin 40 mg/0.4 mL Syringe SUBCUT (02:48)
[2022-12-13] MEDS: sodium chloride 0.9% 1,000 ML 125 ML IV ×3 (02:48→19:36)
[2022-12-13] MEDS: morphine 4 mg/mL SDV 1 mL 2 MG IVP ×2 (02:57→07:30)
[2022-12-13] MEDS: pantoprazole 40 mg SDV IVP (02:58)
[2022-12-13 03:08] LABS: Triglycerides 503 mg/dL (0-150)
[2022-12-13 03:22] LABS: LDL Cholesterol Direct 214 mg/dL (0-100)
[2022-12-13] MEDS: ketorolac 30 mg/mL INJ IVP (03:54)
[2022-12-13 10:06] LABS: Amphetamines Screen Urine Negative (Negative); Barbiturates Screen Urine Negative (Negative); Benzodiazepines Screen Urine Negative (Negative); Cocaine Screen Urine Negative (Negative); Opiate Screen Urine Positive (Negative); PCP Screen Urine Negative (Negative); THC Screen Urine Negative (Negative)
[2022-12-13] MEDS: buPROPion XL (24 HR) 300 mg Tablet PO (10:43)
[2022-12-13] MEDS: levothyroxine 75 mcg Tablet PO (10:43)
[2022-12-13] MEDS: carvedilol 12.5 mg Tablet PO ×2 (10:43→18:07)
[2022-12-13] MEDS: HYDROmorphone 1 mg/mL INJ 1 mL 0.4 MG IVP ×4 (10:45→22:24)
--- NOTE | 2022-12-13 13:18 | W.PM.EVENTAC ---
Event Note Event Note: Admitted overnight. H&P and labs appreciated. On examination patient in bed, in mild distress because of pain. Complaining of nausea. Denies any dizziness or headache. On admission triglycerides found to be 500. CT abdomen pelvis appreciated. Plan: Given history of biliary stenting with biliary dilatation present on CT abdomen pelvis with plan for MRCP. Repeat triglyceride level as it was exact 500. If uptrending will start on insulin drip and transition patient to ICU. Repeat triglyceride and lipase level in AM. Check urine drug screen. Stop morphine and switch to Dilaudid 0.4 mg IV every 4 hours as needed. NPO. Continue current antihypertensives.
[2022-12-13 15:06] LABS: Triglycerides 576 mg/dL (0-150)
[2022-12-13 15:50] LABS: LDL Cholesterol Direct 151 mg/dL (0-100)
[2022-12-13] MEDS: mirtazapine 30 mg Tablet PO (20:54)
[2022-12-14] VITALS (8 sets, daily range): BP systolic 124–159; BP diastolic 76–89; PULSE 61–73; RESP 16–19; TEMP 36.8–37.6; O2SAT 92–99
[2022-12-14] MEDS: enoxaparin 40 mg/0.4 mL Syringe SUBCUT (01:29)
[2022-12-14] MEDS: pantoprazole 40 mg SDV IVP (01:29)
[2022-12-14] MEDS: sodium chloride 0.9% 1,000 ML 125 ML IV ×3 (02:54→20:34)
[2022-12-14] MEDS: HYDROmorphone 1 mg/mL INJ 1 mL 0.4 MG IVP ×5 (02:59→21:39)
[2022-12-14 05:56] LABS: Basophils % 0.5 %; Eosinophils # 0.3 10^3/uL (0.0-0.8); Eosinophils % 3.8 %; Hematocrit 37.7 % (37.0-47.0); Hemoglobin 12.6 g/dL (11.5-15.3); Lymphocytes # 2.5 10^3/uL (0.8-4.8); Lymphocytes % 29.2 %; Mean Corpuscular HGB Conc 33.4 g/dL (30.0-36.0); Mean Corpuscular Hemoglobin 31.1 pg (28.0-34.0); Mean Corpuscular Volume 93.1 fl (81-99); Mean Platelet Volume 11.6 fL (7.4-10.4); Monocytes # 0.6 10^3/uL (0.2-0.9); Monocytes % 6.9 %; Neutrophils # 4.98 10^3/uL (1.8-7.7); Neutrophils % 59.2 %; Nucleated Red Blood Cells % 0 %; Platelet Count 178 10^3/cmm (130-400); Red Blood Count 4.05 10^6/uL (4.1-5.3); Red Cell Distribution Width 13.5 % (12.1-15.1); White Blood Count 8.4 10^3/uL (4.0-10.0)
[2022-12-14] MEDS: levothyroxine 75 mcg Tablet PO (05:59)
[2022-12-14 06:28] LABS: Triglycerides 486 mg/dL (0-150)
[2022-12-14 06:29] LABS: Lipase 273 U/L (13-60)
[2022-12-14 06:30] LABS: Alanine Aminotransferase 30 U/L (0-33); Albumin Level 3.6 g/dL (3.5-5.2); Alkaline Phosphatase 102 U/L (35-105); Anion Gap 15.3 (5-19); Aspartate Amino Transferase 35 U/L (0-32); Blood Urea Nitrogen 8 mg/dL (6-20); Calcium 7.9 mg/dL (8.5-10.5); Carbon Dioxide 23 mmol/L (22-29); Chloride 107 mmol/L (98-107); Creatinine Clr Calc Pharmacy 117.2404; Globulin 2.7 g/dL (1.3-4.6); Glomerular Filtration Rate 106.3 mL/min (90-130); Glucose 150 mg/dL (65-115); Magnesium 1.7 mg/dL (1.7-2.3); Osmolality Calculated 295 mOsm/kg (285-295); Potassium 3.3 mmol/L (3.5-5.1); Sodium 142 mmol/L (136-145); Total Bilirubin 0.5 mg/dL (0.15-1.2); Total Protein 6.3 g/dL (6.6-8.7)
[2022-12-14 06:41] LABS: LDL Cholesterol Direct 134 mg/dL (0-100)
[2022-12-14] MEDS: buPROPion XL (24 HR) 300 mg Tablet PO (08:19)
[2022-12-14] MEDS: carvedilol 12.5 mg Tablet PO ×2 (08:20→17:01)
[2022-12-14] MEDS: fenofibrate 145 mg Tablet PO (08:20)
[2022-12-14 09:54] LABS: Estmated Average Glucose 212
[2022-12-14 11:21] LABS: Glucose Point of Care 226 mg/dL (70-110)
[2022-12-14 16:08] LABS: Glucose Point of Care 147 mg/dL (70-110)
--- NOTE | 2022-12-14 16:20 | P.PN_ITS ---
Subjective Subjective: Patient was seen this morning, her abdominal pain has improved, still her abdomen is a bit bloated, passing gas from below, she is willing to try some liquids, she tells me that she chronically has CBD dilatation when she had biliary stones, when they had to go in and remove it imported a stent she tells me, her surgery involved dilatation of the CBD if she has been told that she has chronic dilatation of CBD she denies any lightheadedness, dizziness, nausea, vomiting, no fevers, no chills Vitals/I&O/Wt Last Vital Signs Temp 98.3 F 12/14/22 12:00 Pulse 63 12/14/22 12:00 Resp 16 12/14/22 12:00 BP 147/83 12/14/22 12:00 Pulse Ox 96 12/14/22 12:00 O2 Del Method Room Air 12/14/22 12:00 12/14/22 12/14/22 12/14/22 06:59 14:59 22:59 Intake Total 912.5 / 2543.75 1000 / 1000 Balance 912.5 / 2543.75 1000 / 1000 Weight last 48 hrs Weight 81.647 kg Physical Exam Const: COMMON NORMALS: no acute distress and patient oriented x3 Resp: COMMON NORMALS: normal respiratory effort, No retractions, No use of accessory muscles and clear to auscultation bilaterally AUSCULTATION: clear t o auscultation bilaterally Cardio: COMMON NORMALS: regular rate, regular rhythm, S1 normal heart sound present and S2 normal heart sound present RATE: regular rate RHYTHM: regular rhythm HEART SOUNDS: S1 normal heart sound present and S2 normal heart sound present GI: OTHER: Abdomen soft, distended, hypoactive bowel sounds, no guarding, no rebound, no rigidity Extremity: COMMON NORMALS: no pedal edema Neuro: COMMON NORMALS: patient oriented x3 Psych: COMMON NORMALS: mental status grossly normal Data 12/14/22 05:06 12/14/22 05:06 Micro: Microbiology 12/12/22 22:23 Blood Culture - Preliminary Blood NEGATIVE TO DATE 12/12/22 21:54 Blood Culture - Preliminary Blood NEGATIVE TO DATE A&P Assessment and plan (1) Pancreatitis: Hypertriglyceridemia induced pancreatitis Triglycerides 46 Lipase 273 Advance to sips and chips, if she tolerates that then can try clears IVF NS @ 125 cc/ hr Pain management with Dilaudid and toradol We will start on fenofibrate Start on atorvastatin Hemoglobin A1c is 9.0, will have her monitor blood sugars very closely and manage accordingly due to risk of worsening hypertriglyceridemia Biliary dilatation noted, not new however size difference noted from 11mm to 2 cm, pneumobilia+. Patient tells me that this is chronic, after her multiple biliary surgeries, including biliary stent placement, cannot do an MRCP given her spinal stimulator in place Monitor LFTs Monitor triglycerides no h/o alcohol consumption (2) Dyslipidemia associated with type 2 diabetes mellitus: (3) Elevated liver enzymes: (4) Type 2 diabetes mellitus: (5) Hypertriglyceridemia: Plan Plan for today, pain control, advance to sips and chips, blood sugar control as A1c is 9, add fenofibrate add lovastatin, monitor clinically monitor abdomen, serial abdominal exams Spoke to nursing staff, spoke to patient Attestations Medical Necessity Statement*: Patient requires hospitalization for hypertriglyceridemia induced pancreatitis, with type 2 diabetes mellitus Diagnoses Pancreatitis K85.90 Dyslipidemia associated with type 2 diabetes mellitus E11.69; E78.5 Elevated liver enzymes R74.8 Type 2 diabetes mellitus E11.9 Hypertriglyceridemia E78.1
[2022-12-14] MEDS: potassium chloride ER 20 mEq Tablet 40 MEQ PO (17:01)
[2022-12-14] MEDS: ketorolac 30 mg/mL INJ IVP (20:32)
[2022-12-14] MEDS: mirtazapine 30 mg Tablet PO (20:34)
[2022-12-14] MEDS: atorvastatin 40 mg Tablet PO (20:34)
[2022-12-14 21:46] LABS: Glucose Point of Care 122 mg/dL (70-110)
[2022-12-15] VITALS: BP 180/76; PULSE 63; RESP 19; TEMP 36.5; O2SAT 97
[2022-12-15 01:11] VITALS: BP 170/100
[2022-12-15 01:42] VITALS: RESP 16
[2022-12-15] MEDS: pantoprazole 40 mg SDV IVP (01:42)
[2022-12-15] MEDS: enoxaparin 40 mg/0.4 mL Syringe SUBCUT (01:42)
[2022-12-15] MEDS: HYDROmorphone 1 mg/mL INJ 1 mL 0.4 MG IVP ×2 (01:42→07:19)
[2022-12-15 03:18] VITALS: BP 164/103; PULSE 64; RESP 18; TEMP 36.8; O2SAT 95
[2022-12-15] MEDS: sodium chloride 0.9% 1,000 ML 125 ML IV (03:57)
[2022-12-15 05:09] LABS: Basophils # 0.1 10^3/uL (0.0-0.1); Basophils % 0.9 %; Eosinophils # 0.4 10^3/uL (0.0-0.8); Eosinophils % 5.7 %; Hematocrit 34.8 % (37.0-47.0); Hemoglobin 11.2 g/dL (11.5-15.3); Lymphocytes # 2.4 10^3/uL (0.8-4.8); Lymphocytes % 34.7 %; Mean Corpuscular HGB Conc 32.2 g/dL (30.0-36.0); Mean Corpuscular Hemoglobin 29.6 pg (28.0-34.0); Mean Corpuscular Volume 92.1 fl (81-99); Mean Platelet Volume 11.5 fL (7.4-10.4); Monocytes # 0.6 10^3/uL (0.2-0.9); Monocytes % 8.2 %; Neutrophils # 3.44 10^3/uL (1.8-7.7); Neutrophils % 50.2 %; Nucleated Red Blood Cells % 0 %; Platelet Count 160 10^3/cmm (130-400); Red Blood Count 3.78 10^6/uL (4.1-5.3); Red Cell Distribution Width 13.5 % (12.1-15.1); White Blood Count 6.9 10^3/uL (4.0-10.0)
[2022-12-15 05:32] LABS: Alanine Aminotransferase 23 U/L (0-33); Albumin Level 3.4 g/dL (3.5-5.2); Alkaline Phosphatase 92 U/L (35-105); Anion Gap 13.4 (5-19); Aspartate Amino Transferase 27 U/L (0-32); Blood Urea Nitrogen 5 mg/dL (6-20); C Reactive Protein 84.2 mg/L (0.0-4.9); Carbon Dioxide 20 mmol/L (22-29); Chloride 111 mmol/L (98-107); Globulin 2.6 g/dL (1.3-4.6); Glomerular Filtration Rate 131.1 mL/min (90-130); Glucose 114 mg/dL (65-115); Magnesium 1.7 mg/dL (1.7-2.3); Osmolality Calculated 290 mOsm/kg (285-295); Phosphorus 1.9 mg/dL (2.5-4.5); Potassium 3.4 mmol/L (3.5-5.1); Sodium 141 mmol/L (136-145); Total Bilirubin 0.6 mg/dL (0.15-1.2)
[2022-12-15 05:33] LABS: Triglycerides 326 mg/dL (0-150)
[2022-12-15 06:16] LABS: Glucose Point of Care 129 mg/dL (70-110)
[2022-12-15] MEDS: levothyroxine 75 mcg Tablet PO (06:19)
[2022-12-15] MEDS: carvedilol 12.5 mg Tablet PO (07:19)
[2022-12-15] MEDS: fenofibrate 145 mg Tablet PO (07:19)
[2022-12-15] MEDS: buPROPion XL (24 HR) 300 mg Tablet PO (07:19)
[2022-12-15 07:53] VITALS: BP 172/96; PULSE 68; RESP 18; TEMP 36.8; O2SAT 98
--- NOTE | 2022-12-15 11:14 | P.DS_ITS ---
Discharge Providers Date of Admission: 12/13/22 00:21 Date of Discharge: December 15, 2022 Attending Provider at Admission: Nadege Yoon MD Attending Provider at Discharge: Teto Patel MD Primary Care Provider: Christiano Kendall MD Diagnoses at Discharge Discharge Diagnosis (1) Pancreatitis: Status: Acute (2) Dyslipidemia associated with type 2 diabetes mellitus: Status: Acute (3) Elevated liver enzymes: Status: Acute (4) Type 2 diabetes mellitus: Status: Acute (5) Hypertriglyceridemia: Status: Acute Reason for Visit Reason for Visit: abd pain Hospital Course Hospital Course This is a 47-year-old female with a past medical history of recurrent pancreatitis, history of gallstone pancreatitis, status post cholecystectomy, requiring biliary stent placement, history of chronic CBD dilatation, who presents to [facility] due to abdominal pain Patient was admitted to [facility] for hypertriglyceridemia induced pancreatitis, with type 2 diabetes mellitus, A1c of 9, with triglycerides in the 500s, she did not require an insulin drip, managed medically with fenofibrate, statin, IV fluids, bowel rest, overall she clinically improved, abdominal pain resolved, tolerating full liquid diet. She will be discharged on atorvastatin 40 mg with fenofibrate, with a close follow-up with primary care provider to recheck triglycerides in 1 week, triglycerides on discharge 326. She was counseled extensively about a low-fat diet, and diet control measures. In a ddition she does have a advanced quality engineer in [place] she should follow-up with a advanced quality engineer, as she might have chronic pancreatitis, resulting in pancreatic insufficiency, might require to be on pancreatic enzymes. In terms of patient's type 2 diabetes mellitus, A1c 9, she was hesitant about being placed on insulin, advised to monitor blood sugars 3 times daily of discharge on metformin 500 twice daily she has been on it before. I advised her that she has to monitor her blood sugars closely, elevated blood sugars are associate with hypertriglyceridemia, which can cause recurrent pancreatitis. She should follow-up with her primary care provider and monitor her blood sugars closely. Physical Exam Const: COMMON NORMALS: no acute distress and patient oriented x3 Resp: COMMON NORMALS: normal respiratory effort, No retractions, No use of accessory muscles and clear to auscultation bilaterally AUSCULTATION: clear to auscultation bilaterally Cardio: COMMON NORMALS: regular rate, regular rhythm, S1 normal heart sound present and S2 normal heart sound present RATE: regular rate RHYTHM: regular rhythm HEART SOUNDS: S1 normal heart sound present and S2 normal heart sound present GI: COMMON NORMALS: Normal to inspection, nondistended, normoactive bowel sounds present Extremity: COMMON NORMALS: no pedal edema Neuro: COMMON NORMALS: patient oriented x3 Psych: COMMON NORMALS: mental status grossly normal Discharge Data Studies Completed and Pending Completed Studies During Hospitalization Category Date Time Status CT abdomen pelvis w con* [id number] Stat Cat Scan 12/12/22 22:59 Completed Pending at discharge Category Date Time Status Blood Culture Stat Lab 12/12/22 22:23 Results C Reactive Protein AM LABS Lab 12/16/22 04:00 Ordered C Reactive Protein AM LABS Lab 12/17/22 04:00 Ordered Complete Blood Count w/Auto AM LABS Lab 12/16/22 04:00 Ordered Complete Blood Count w/Auto AM LABS Lab 12/17/22 04:00 Ordered Comprehensive Metabolic Panel AM LABS Lab 12/16/22 04:00 Ordered Comprehensive Metabolic Panel AM LABS Lab 12/17/22 04:00 Ordered Magnesium AM LABS Lab 12/16/22 04:00 Ordered Magnesium AM LABS Lab 12/17/22 04:00 Ordered Phosphorus AM LABS Lab 12/16/22 04:00 Ordered Phosphorus AM LABS Lab 12/17/22 04:00 Ordered TRIG [Triglycerides] AM LABS Lab 12/16/22 04:00 Ordered TRIG [Triglycerides] AM LABS Lab 12/17/22 04:00 Ordered Radiology Impressions Abdomen/Pelvis CT 12/12/22 22:59 IMPRESSION: 1. Peripancreatic edema suggestive of pancreatitis. 2. Common bile duct dilated to 2 cm, likely related to prior cholecystectomy. 3. Hepatic steatosis. 4. Left colon wall thickening may be due to nondistention, a colitis is also consideration. 5. Pneumobilia. Laboratory Results WBC 6.9 10^3/uL (4.0-10.0) 12/15/22 04:32 RBC 3.78 10^6/uL (4.1-5.3) L 12/15/22 04:32 Hgb 11.2 g/dL (11.5-15.3) L 12/15/22 04:32 Hct 34.8 % (37.0-47.0) L 12/15/22 04:32 MCV 92.1 fl (81-99) 12/15/22 04:32 MCH 29.6 pg (28.0-34.0) 12/15/22 04:32 MCHC 32.2 g/dL (30.0-36.0) 12/15/22 04:32 RDW 13.5 % (12.1-15.1) 12/15/22 04:32 Plt Count 160 10^3/cmm (130-400) 12/15/22 04:32 MPV 11.5 fL (7.4-10.4) H 12/15/22 04:32 Neut % (Auto) 50.2 % 12/15/22 04:32 Lymph % (Auto) 34.7 % 12/15/22 04:32 [place] % (Auto) 8.2 % 12/15/22 04:32 Eos % (Auto) 5.7 % 12/15/22 04:32 Baso % (Auto) 0.9 % 12/15/22 04:32 Neut # (Auto) 3.44 10^3/uL (1.8-7.7) 12/15/22 04:32 Lymph # (Auto) 2.4 10^3/uL (0.8-4.8) 12/15/22 04:32 [place] # (Auto) 0.6 10^3/uL (0.2-0.9) 12/15/22 04:32 Eos # (Auto) 0.4 10^3/uL (0.0-0.8) 12/15/22 04:32 Baso # (Auto) 0.1 10^3/uL (0.0-0.1) 12/15/22 04:32 Nucleated RBC % (auto) 0 % 12/15/22 04:32 Nucleated RBCs # 0.0 /100WBC 12/15/22 04:32 Sodium 141 mmol/L (136-145) 12/15/22 04:32 Potassium 3.4 mmol/L (3.5-5.1) L 12/15/22 04:32 Chloride 111 mmol/L (98-107) H 12/15/22 04:32 Carbon Dioxide 20 mmol/L (22-29) L 12/15/22 04:32 Anion Gap 13.4 (5-19) 12/15/22 04:32 BUN 5 mg/dL (6-20) L 12/15/22 04:32 Creatinine 0.5 mg/dL (0.5-0.9) 12/15/22 04:32 GFR Calculation 131.1 mL/min (90-130) H 12/15/22 04:32 Glucose 114 mg/dL (65-115) 12/15/22 04:32 POC Glucose 129 mg/dL (70-110) H 12/15/22 06:11 Estimat Average Glucose 212 12/14/22 05:06 Hemoglobin A1c 9.0 % (4.0-6.0) H 12/14/22 05:06 Calculated Osmolality 290 mOsm/kg (285-295) 12/15/22 04:32 Calcium 8.0 mg/dL (8.5-10.5) L 12/15/22 04:32 Phosphorus 1.9 mg/dL (2.5-4.5) L 12/15/22 04:32 Magnesium 1.7 mg/dL (1.7-2.3) 12/15/22 04:32 Total Bilirubin 0.6 mg/dL (0.15-1.2) 12/15/22 04:32 AST 27 U/L (0-32) 12/15/22 04:32 ALT 23 U/L (0-33) 12/15/22 04:32 Alkaline Phosphatase 92 U/L (35-105) 12/15/22 04:32 C-Reactive Protein 84.2 mg/L (0.0-4.9) H 12/15/22 04:32 Total Protein 6.0 g/dL (6.6-8.7) L 12/15/22 04:32 Albumin 3.4 g/dL (3.5-5.2) L 12/15/22 04:32 Globulin 2.6 g/dL (1.3-4.6) 12/15/22 04:32 Triglycerides 326 mg/dL (0-150) H 12/15/22 04:32 LDL Cholesterol Direct 134 mg/dL (0-100) H 12/14/22 05:06 Lipase 273 U/L (13-60) H 12/14/22 05:06 HCG, Qual Negative (Negative) 12/12/22 21:54 Urine Color Dark yellow (Yellow) 12/12/22 23:53 Urine Appearance Sl hazy (CLEAR) A 12/12/22 23:53 Urine pH 5 (5-7) 12/12/22 23:53 Ur Specific [place] 1.015 (1.005-1.030) 12/12/22 23:53 Urine Protein Neg (Negative) 12/12/22 23:53 Urine Glucose (UA) Norm (Normal) 12/12/22 23:53 Urine Ketones Negative (Negative) 12/12/22 23:53 Urine Blood Neg (Negative) 12/12/22 23:53 Urine Nitrate Negative (Negative) 12/12/22 23:53 Urine Bilirubin Neg (Negative) 12/12/22 23:53 Urine Urobilinogen Norm mg/dL (Negative) 12/12/22 23:53 Ur Leukocyte Esterase Negative (Negative) 12/12/22 23:53 Urine Opiates Screen Positive ng/mL (Negative) H 12/13/22 Unknown Ur Barbiturates Screen Negative ng/mL (Negative) 12/13/22 Unknown Ur Phencyclidine Scrn Negative ng/mL (Negative) 12/13/22 Unknown Ur Amphetamines Screen Negative ng/mL (Negative) 12/13/22 Unknown U Benzodiazepines Scrn Negative ng/mL (Negative) 12/13/22 Unknown Urine Cocaine Screen Negative ng/mL (Negative) 12/13/22 Unknown U Marijuana (THC) Screen Negative ng/mL (Negative) 12/13/22 Unknown Vitals Last Vital Signs Temp 98.2 F 12/15/22 07:53 Pulse 68 12/15/22 07:53 Resp 18 12/15/22 07:53 BP 172/96 12/15/22 07:53 Pulse Ox 98 12/15/22 07:53 O2 Del Method Room Air 12/15/22 07:53 Discharge Plan Discharge Patient Disposition: Home Condition: Stable Prescriptions: New fenofibrate nanocrystallized 145 mg Tablet 145 mg PO DAILY 30 Days Qty: 30 0RF atorvastatin 40 mg Tablet 40 mg PO BEDTIME 30 Days Qty: 30 0RF metformin 500 mg tablet 500 mg PO BID 30 Days Qty: 60 0RF Continued pantoprazole 40 mg tablet,delayed release (DR/EC) 40 mg PO DAILY PRN (Reason: acid reflux) Qty: 30 5RF carvedilol 12.5 mg tablet 12.5 mg PO BID Qty: 180 2RF albuterol sulfate [Ventolin HFA] 90 mcg/actuation HFA aerosol inhaler 2 puff INHALATION QID PRN (Reason: Shortness Of Breath) Qty: 8.5 5RF Synthroid 75 mcg tablet 75 mcg PO DAILY@07 Qty: 90 1RF promethazine 25 mg tablet 25 mg PO TID PRN (Reason: Nausea And Vomiting) Qty: 90 1RF cyclobenzaprine 10 mg tablet 5 - 10 mg PO TID PRN (Reason: Muscle Spasm) hydrocodone-acetaminophen 10-325 mg tablet 1 tab PO 5XD PRN (Reason: Pain) Excedrin Migraine 250-250-65 mg Tablet 1 - 2 tab PO Q6H PRN (Reason: Migraine Headache) clonidine HCl 0.1 mg tablet 0.1 mg PO BID PRN (Reason: Blood Pressure) mirtazapine 30 mg tablet 30 mg PO BEDTIME bupropion HCl 300 mg tablet extended release 24 hr 300 mg PO DAILY Discharge Orders: Discharge Order (Routine); Ordered 12/15/22 Ordered By: Teto Patel Referrals: Christiano Kendall MD [Primary Care Provider] - Discharge Diet: Full LIquid Discharge Activity: Resume usual activity Patient Instructions: Low Fat Diet (DC), Hyperlipidemia (GEN), GI (Gastrointestinal) Soft Diet (ED), Opioid Safety Activity Restrictions/Additional Instructions: - For your hypertriglyceridemia, take fenofibrate, atorvastatin as prescribed please have your primary care provider recheck your triglycerides next week -Your triglycerides on discharge are 326 -Your hemoglobin A1c is 9.0, please check blood sugars 3 times daily, -I placed on metformin 500 twice daily -You need to get your blood sugars under control, hyperglycemia can result in worsening hypertriglyceridemia which will result in recurrent pancreatitis -See your primary care provider if your blood sugars are consistently higher than 200 then you should really have a discussion about adding additional medications or insulin -Please avoid all alcohol consumption -If you have any recurrent abdominal pain please go to emergency room - Discharge Attestations Time Spent in Discharge Care*: greater than 30 min Status at Discharge: Cognitive status at discharge: cognitively intact , Behavioral status at discharge: cooperative , Quality Metrics Clinical Quality Measures [ No reported AMI, CVA or VTE this stay] Coding Level of Care Code 59356 Total time (in minutes) for Discharge: 60 Diagnoses Pancreatitis K85.90 Dyslipidemia associated with type 2 diabetes mellitus E11.69; E78.5 Elevated liver enzymes R74.8 Type 2 diabetes mellitus E11.9 Hypertriglyceridemia E78.1
[2022-12-15 11:26] LABS: Glucose Point of Care 144 mg/dL (70-110)
== END 2022-12-15 15:07 | disposition home or self-care (01) | DRG 440 ==
LOC: ER 12-13 00:21 → MEDSURG 12-13 00:33
PROVIDERS: Student in an Organized Health Care Education/Training Program; Admitting Provider Student in an Organized Health Care Education/Training Program; Emergency Provider Emergency Medicine; PCP Family Medicine Adult Medicine; Visit Provider Family Medicine
DX: K85.00 Idiopathic acute pancreatitis without necrosis or infection (principal); E78.1 Pure hyperglyceridemia; E11.9 Type 2 diabetes mellitus without complications; Z79.51 Long term (current) use of inhaled steroids; Z79.891 Long term (current) use of opiate analgesic; F41.9 Anxiety disorder, unspecified; F32.A Depression, unspecified; J44.9 Chronic obstructive pulmonary disease, unspecified; K21.9 Gastro-esophageal reflux disease without esophagitis; G89.29 Other chronic pain; M54.9 Dorsalgia, unspecified; E03.9 Hypothyroidism, unspecified; F17.210 Nicotine dependence, cigarettes, uncomplicated
CPT/HCPCS: 36415; 36416; 74177; 80053; 80306; 81003; 82962; 83036; 83690; 83721; 83735; 84100; 84478; 84703; 85025; 86140; 87040; 96361; 96372; 96374; 96375; 96376; 99285; C9113; J1170; J1650; J1885; J2270; J2405; J3010; J7030; J7120; Q9967

== ENCOUNTER → 2022-12-25 10:21 | Outpatient (BNVA) | payer MEDICARE, MEDICAID, SELFPAY | PROVIDERS: PCP Family Medicine Adult Medicine; Visit Provider Family Medicine Adult Medicine | DX: K85.90 Acute pancreatitis without necrosis or infection, unspecified (principal); K83.1 Obstruction of bile duct; E78.1 Pure hyperglyceridemia; E11.69 Type 2 diabetes mellitus with other specified complication; E78.5 Hyperlipidemia, unspecified; E03.9 Hypothyroidism, unspecified; F17.200 Nicotine dependence, unspecified, uncomplicated; I10 Essential (primary) hypertension; Z09 Encounter for follow-up examination after completed treatment for conditions other than malignant neoplasm | CPT/HCPCS: 80053; 80061; 83036; 83690; 85025 ==

== ENCOUNTER → 2023-03-26 13:32 | Outpatient (BNVA) | payer MEDICARE, MEDICAID, SELFPAY | PROVIDERS: PCP Family Medicine Adult Medicine; Visit Provider Family Medicine Adult Medicine | DX: E03.9 Hypothyroidism, unspecified (principal); I10 Essential (primary) hypertension; E11.9 Type 2 diabetes mellitus without complications; F41.9 Anxiety disorder, unspecified; F32.A Depression, unspecified; F40.00 Agoraphobia, unspecified; E11.69 Type 2 diabetes mellitus with other specified complication; E78.5 Hyperlipidemia, unspecified; F17.200 Nicotine dependence, unspecified, uncomplicated | CPT/HCPCS: 83036; 84443; 85025 ==

== ENCOUNTER 2023-08-03 02:45 | Inpatient (IN) | payer MEDICARE, MEDICAID, SELFPAY ==
[2023-08-03] VITALS (19 sets, daily range): BP systolic 96–247; BP diastolic 68–140; PULSE 55–67; RESP 16–24; TEMP 36.6–36.7; O2SAT 96–100; BMI 30.9
--- NOTE | 2023-08-03 02:54 | ED_ITS ---
HPI - Abdominal Pain 2 General: Chief Complaint: Abdominal Pain Stated Complaint: Pancretitus Hurting Time Seen by Provider: 08/03/23 02:48 Source: patient Mode of arrival: ambulatory Limitations: no limitations History of Present Illness: 48-year-old female who has history of pa ncreatitis states she started having severe abdominal pain yesterday. States pain is epigastric that radiates to her back she has had nausea and vomiting as well. States her pain is currently 10 out of 10 denies any fevers she denies any diarrhea Associated Symptoms: Reports nausea and vomiting; Denies chills, diarrhea and fever(s) Review of Systems 2 Const: Denies: fever(s), chills, body aches or change in appetite ENMT: Denies: throat pain or dental pain Card: Denies: chest pain Resp: Denies: dyspnea GI: Reports: abdominal pain, nausea and vomiting; Denies: diarrhea Musc: Denies: neck pain or back pain Skin/Breast: Denies: rash Neuro: Denies: headache(s) PFSH ED 2 PFSH: Medical History Sleep apnea Acquired hypertriglyceridemia Agoraphobia Pancreatitis due to biliary obstruction Anxiety and depression Chronic radicular low back pain [facility] - Dr. Brandon Leonardo Hx of acute pancreatitis ER 05/29/2021 Smoker unmotivated to quit Diabetes type 2, controlled Dyslipidemia associated with type 2 diabetes mellitus Elevated liver enzymes Chronic GERD COPD (chronic obstructive pulmonary disease) Wellness examination Hypertension Thoracic back pain [facility] - Dr. Brandon Leonardo Hypothalamic hypothyroidism Asthma Surgical History History of tubal ligation History of neck surgery History of appendectomy History of back surgery History of cholecystectomy Social History Smoking and tobacco/nicotine status: current every day tobacco/nicotine user cigarettes Packs smoked per day: 0.5 Second hand smoke exposure: Yes Alcohol intake: never Substance/Drug Use: never Lives independently: Yes Marital status: Legally Number of children: 4 Current occupational status: disabled Physical Exam 2 Const: COMMON NORMALS: no acute distress, patient oriented x3 and healthy appearing HENMT: COMMON NORMALS: normocephalic and atraumatic HEAD & SCALP: n ormocephalic and atraumatic Neck/C-Spine: COMMON NORMALS: full ROM and supple Chest: COMMONS NORMALS: normal inspection of the chest Resp: COMMON NORMALS: normal respiratory effort, No retractions, No use of accessory muscles and clear to auscultation bilaterally AUSCULTATION: clear to auscultation bilaterally Cardio: COMMON NORMALS: regular rate, regular rhythm and No murmurs present (Cardio) RATE: regular rate RHYTHM: regular rhythm GI: COMMON NORMALS: Normal to inspection, nondistended, normoactive bowel sounds present, Soft to palpation and no masses PALPATION: Yes Soft to palpation OTHER: epigastric tenderness Extremity: COMMON NORMALS: normal to inspection and full ROM Neuro: COMMON NORMALS: patient oriented x3, moves all extremities and no focal motor deficits Psych: COMMON NORMALS: mental status grossly normal, Normal thought process present and cooperative THOUGHT PROCESS: Normal thought process present Skin: COMMON NORMALS: no rashes or lesions noted and no wounds GENERAL SKIN EXAM: no rashes or lesions noted Course 2 Vital Signs: Vital signs: Vital Signs Temperature 97.9 F 08/03/23 02:50 Pulse Rate 61 08/03/23 04:01 Respiratory Rate 22 H 08/03/23 04:10 Blood Pressure 192/112 08/03/23 04:01 Pulse Oximetry 100 08/03/23 04:10 Oxygen Delivery Me thod Room Air 08/03/23 03:11 MDM - Abdominal Pain Medical Decision Making Patient presents here with abdominal pain due to pancreatitis patient given pain meds here spoke to hospitalist will admit at this time Medical Records I reviewed the patient's medical records. Lab Data I reviewed the patient's lab results. 08/03/23 02:58 08/03/23 02:58 Labs/Radiology: Radiology Impressions Abdomen/Pelvis CT 08/03/23 02:56 IMPRESSION: 1. Findings compatible with acute pancreatitis, see above details. 2. Moderate biliary tree dilation, see above discussion. 3. Prior cholecystectomy. 4. Possible mucosa/wall thickening involving the proximal duodenum, see above discussion. 5. No free air or significant bowel distention. No evidence for bowel obstruction. 6. Possibility of mild colitis involving the sigmoid and descending colon, see above discussion. 7. Other findings discussed above. Laboratory Results WBC 14.85 10^3/uL (3.29-11.43) H 08/03/23 02:58 RBC 4.72 10^6/uL (3.85-5.65) 08/03/23 02:58 Hgb 14.60 g/dL (11.27-16.99) 08/03/23 02:58 Hct 42.7 % (36-47) 08/03/23 02:58 MCV 90.5 fl (85-98) 08/03/23 02:58 MCH 30.9 pg (27-33) 08/03/23 02:58 MCHC 34.2 g/dL (30-55) 08/03/23 02:58 RDW 12.9 % (12.1-15.1) 08/03/23 02:58 Plt Count 224 10^3/cmm (157-399) 08/03/23 02:58 MPV 11.2 fL (7.4-10.4) H 08/03/23 02:58 Neut % (Auto) 68.1 % 08/03/23 02:58 Lymph % (Auto) 20.0 % 08/03/23 02:58 [place] % (Auto) 7.0 % 08/03/23 02:58 Eos % (Auto) 4.1 % 08/03/23 02:58 Baso % (Auto) 0.5 % 08/03/23 02:58 Neut # (Auto) 10.10 10^3/uL (1.8-7.7) H 08/03/23 02:58 Lymph # (Auto) 3.0 10^3/uL (0.8-4.8) 08/03/23 02:58 [place] # (Auto) 1.0 10^3/uL (0.2-0.9) H 08/03/23 02:58 Eos # (Auto) 0.6 10^3/uL (0.0-0.8) 08/03/23 02:58 Baso # (Auto) 0.1 10^3/uL (0.0-0.1) 08/03/23 02:58 Nucleated RBC % (auto) 0 % 08/03/23 02:58 Nucleated RBCs # 0.0 /100WBC 08/03/23 02:58 Sodium 139 mmol/L (136-145) 08/03/23 02:58 Potassium 3.8 mmol/L (3.5-5.1) 08/03/23 02:58 Chloride 100 mmol/L (98-107) 08/03/23 02:58 Carbon Dioxide 26 mmol/L (22-29) 08/03/23 02:58 Anion Gap 16.8 (5-19) 08/03/23 02:58 BUN 10 mg/dL (6-20) 08/03/23 02:58 Creatinine 0.9 mg/dL (0.5-0.9) 08/03/23 02:58 GFR Calculation 66.3 mL/min (90-130) L 08/03/23 02:58 Glucose 169 mg/dL (65-115) H 08/03/23 02:58 Calculated Osmolality 291 mOsm/kg (285-295) 08/03/23 02:58 Calcium 10.8 mg/dL (8.5-10.5) H 08/03/23 02:58 Total Bilirubin 0.4 mg/dL (0.15-1.2) 08/03/23 02:58 AST 42 U/L (0-32) H 08/03/23 02:58 ALT 35 U/L (0-33) H 08/03/23 02:58 Alkaline Phosphatase 97 U/L (35-105) 08/03/23 02:58 Total Protein 8.1 g/dL (6.6-8.7) 08/03/23 02:58 Albumin 4.8 g/dL (3.5-5.2) 08/03/23 02:58 Globulin 3.3 g/dL (1.3-4.6) 08/03/23 02:58 Lipase 868 U/L (13-60) H 08/03/23 02:58 All radiology interpretation(s) finalized by discharge Discharge Plan Discharge Patient Disposition: Admitted As Inpatient Clinical Impression: Pancreatitis Condition: Stable Prescriptions: No Action (DME) glucometer, strips and supplies See Rx Instructions .Route .MEDSUPPLY Qty: 1 0RF Rx Instructions: As directed check glucose, once daily bupropion HCl 300 mg tablet extended release 24 hr 300 mg PO DAILY Qty: 90 1RF bupropion HCl 150 mg tablet sustained-release 12 hr 150 mg PO QAM Qty: 90 1RF atorvastatin 40 mg tablet 40 mg PO BEDTIME Qty: 90 3RF albuterol sulfate [Ventolin HFA] 90 mcg/actuation HFA aerosol inhaler 2 puff INHALATION QID PRN (Reason: Shortness Of Breath) Qty: 17 2RF buspirone 10 mg tablet 10 mg PO BID Qty: 180 1RF carvedilol 25 mg tablet 25 mg PO BID Qty: 180 1RF clonidine HCl 0.1 mg tablet 0.1 mg PO BID PRN (Reason: Blood Pressure) Qty: 180 2RF metformin 500 mg tablet 500 mg PO BID Qty: 180 1RF mirtazapine 30 mg tablet 30 mg PO BEDTIME Qty: 90 1RF pantoprazole 40 mg tablet,delayed release (DR/EC) 40 mg PO DAILY PRN (Reason: acid reflux) Qty: 90 1RF Synthroid 75 mcg tablet 75 mcg PO DAILY@07 Qty: 90 1RF promethazine 25 mg tablet See Rx Instructions .ROUTE .COMPLEX Qty: 90 1RF Dose Instruction: TAKE ONE TABLET BY MOUTH THREE TIMES A DAY NEEDED FOR NAUSEA AND VOMITING Rx Instructions: TAKE ONE TABLET BY MOUTH THREE TIMES A DAY NEEDED FOR NAUSEA AND VOMITING fenofibrate 160 mg tablet 160 mg PO DAILY Qty: 90 1RF hydrocodone-acetaminophen 10-325 mg tablet 1 tab PO 5XD PRN (Reason: Pain) Excedrin Migraine 250-250-65 mg Tablet 1 - 2 tab PO Q6H PRN (Reason: Migraine Headache) Referrals: Christiano Kendall MD [Primary Care Provider] - Coding Level of Care Code ED Manager Of International for Kylah Munoz
--- NOTE | 2023-08-03 02:56 | CTR_ITS ---
PROCEDURE INFORMATION: Exam: CT Abdomen And Pelvis With Contrast Exam date and time: 08/03/2023 3:13 AM Age: 48 years old Clinical indication: Nausea and vomiting; Abdominal pain; Prior surgery; Surgery date: 6+ months; Surgery type: Gb. Appy. Tubal. Spinal stimulator. Patient HX: Epigastric pain with n/v. History of pancreatitis with biliary obstruction. ; Additional info: Abd pain TECHNIQUE: Imaging protocol: Computed tomography of the abdomen and pelvis with contrast. Radiation optimization: All CT scans at this facility use at least one of these dose optimization techniques: automated exposure control; mA and/or kV adjustment per patient size (includes targeted exams where dose is matched to clinical indication); or iterative reconstruction. Contrast material: OMNI 350; Contrast volume: 100 ml; Contrast route: INTRAVENOUS (IV); COMPARISON: CT abdomen pelvis w con* [id number] 12/12/2022 11:23 PM RADIATION DOSE METRICS: Total DLP (mGy-cm): 779.3 FINDINGS: Lungs: The lung bases are clear. Liver: There is fatty infiltration of the liver. The liver appears somewhat enlarged, with right lobe length of about 21 cm. No definite/significant focal hepatic abnormality. Gallbladder and bile ducts: Prior cholecystectomy. Moderate extrahepatic biliary tree dilation, with common duct measuring up to about 17-18 mm. Mild intrahepatic biliary dilation. No visible common duct stone by CT. Significance uncertain, as the appearance is similar to the prior exam. Correlation with laboratory/bilirubin levels may be helpful to determine if there is any significant biliary obstruction. As clinically directed, MRCP might be considered if there is need to evaluate for possible common duct stone or stricture. Pancreas: Mild to moderate inflammatory changes around head and uncinate process the pancreas, compatible with acute pancreatitis. Please correlate with clinical and laboratory evaluation. Very small amount of peripancreatic and right retroperitoneal fluid. No definite pseudocyst. Pancreatic duct appears upper normal, about 3 mm in diameter. The pancreas appears to enhance homogeneously. Spleen: Unremarkable. Adrenal glands: Unremarkable. Kidneys and ureters: Unremarkable. Stomach and bowel: Possible mild mucosa/wall thickening and enhancement involving the proximal duodenum. This is a nonspecific appearance, and I suspect is likely related to the adjacent pancreatic inflammation. Possibility of concurrent duodenitis or peptic ulcer disease is not excluded. Please correlate clinically. No significant bowel distention. Possible mild mucosal/wall thickening involving portions of the sigmoid and descending colon. This region of the colon is not well distended which limits evaluation. Therefore, the findings could be transient, and are somewhat equivocal at this time. While nonspecific, this appearance may be secondary to some form of colitis, please correlate clinically. There are no CT findings to strongly suggest diverticulitis. Appendix: No evidence of appendicitis. Intraperitoneal space: No free intraperitoneal air, or ascites. Vasculature: The portal and splenic veins appear patent. No evidence for abdominal aortic aneurysm. Lymph nodes: No retroperitoneal adenopathy. Urinary bladder: No visible calculus in the urinary bladder. Reproductive: No definite abnormal ovarian/adnexal cyst or mass by CT. Bones/joints: No significant acute finding. Soft tissues: No significant acute finding. CT/CT abdomen pelvis w con* [id number] IMPRESSION: 1. Findings compatible with acute pancreatitis, see above details. 2. Moderate biliary tree dilation, see above discussion. 3. Prior cholecystectomy. 4. Possible mucosa/wall thickening involving the proximal duodenum, see above discussion. 5. No free air or significant bowel distention. No evidence for bowel obstruction. 6. Possibility of mild colitis involving the sigmoid and descending colon, see above discussion. 7. Other findings discussed above.
[2023-08-03 03:05] LABS: Basophils # 0.1 10^3/uL (0.0-0.1); Basophils % 0.5 %; Eosinophils # 0.6 10^3/uL (0.0-0.8); Eosinophils % 4.1 %; Hematocrit 42.7 % (36-47); Mean Corpuscular HGB Conc 34.2 g/dL (30-55); Mean Corpuscular Hemoglobin 30.9 pg (27-33); Mean Corpuscular Volume 90.5 fl (85-98); Mean Platelet Volume 11.2 fL (7.4-10.4); Neutrophils % 68.1 %; Nucleated Red Blood Cells % 0 %; Platelet Count 224 10^3/cmm (157-399); Red Blood Count 4.72 10^6/uL (3.85-5.65); Red Cell Distribution Width 12.9 % (12.1-15.1); White Blood Count 14.85 10^3/uL (3.29-11.43)
[2023-08-03] MEDS: HYDROmorphone 1 mg/mL INJ 1 mL IVP ×8 (03:06→20:21)
[2023-08-03] MEDS: ondansetron 2 mg/ML SDV 2 mL 4 MG IVP (03:06)
[2023-08-03] MEDS: hyDRALAzine 20 mg/mL INJ 1 mL 10 MG IVP (03:08)
[2023-08-03] MEDS: sodium chloride 0.9% 1,000 ML 999 ML IV (03:10)
[2023-08-03] MEDS: iohexol 350 mg/mL 500 mL Btl (per mL) IV (03:16)
[2023-08-03 03:27] LABS: Alanine Aminotransferase 35 U/L (0-33); Albumin Level 4.8 g/dL (3.5-5.2); Alkaline Phosphatase 97 U/L (35-105); Aspartate Amino Transferase 42 U/L (0-32); Blood Urea Nitrogen 10 mg/dL (6-20); Calcium 10.8 mg/dL (8.5-10.5); Carbon Dioxide 26 mmol/L (22-29); Chloride 100 mmol/L (98-107); Creatinine Clr Calc Pharmacy 77.3014; Globulin 3.3 g/dL (1.3-4.6); Glomerular Filtration Rate 66.3 mL/min (90-130); Glucose 169 mg/dL (65-115); Osmolality Calculated 291 mOsm/kg (285-295); Sodium 139 mmol/L (136-145); Total Bilirubin 0.4 mg/dL (0.15-1.2); Total Protein 8.1 g/dL (6.6-8.7)
[2023-08-03 03:33] LABS: Anion Gap 16.8 (5-19); Lipase 868 U/L (13-60); Potassium 3.8 mmol/L (3.5-5.1)
[2023-08-03 04:55] LABS: Estmated Average Glucose 137; Hemoglobin A1C 6.4 % (4.0-6.0)
--- NOTE | 2023-08-03 05:06 | P.HP_ITS ---
Providers/Chief Complaint 2 Primary Care Provider: Christiano Kendall MD Chief Complaint: Pancretitus Hurting History of Present Illness Cynthia Roblero is a 48 year old female with a past medical history Hypertriglyceridemia induced pancreatitis, history of gallstone pancreatitis, hypertension, hyperlipidemia, type 2 diabetes mellitus, history of cholecystectomy, history of chronic CBD dilatation, history of biliary stent with subsequent removal, who presents to [facility] due to 48-hour history of abdominal pain. Patient tells me that for the last 48 hours she has had abdominal pain, nausea, vomiting, no lack of stooling, she is taking all her medication as prescribed, denies any alcohol use, no drug use, no history of steroid use, no fevers, no chills, tells me that her blood sugar is well- controlled Review of Systems 2 Card: Denies: chest pain Resp: Denies: dyspnea GI: Reports: abdominal pain, nausea and vomiting Medications/Allergies Home Medications Medication Instructions Recorded Confirmed Last Taken Type fkhelxt-cbrtpjqklnifl-pkeudfdl 250 1 - 2 tab PO Q6H PRN Migraine 06/10/22 07/28/23 Unknown History mg-250 mg-65 mg tablet (Excedrin Headache Migraine) hydrocodone 10 mg-acetaminophen 1 tab PO 5XD PRN Pain 06/10/22 07/28/23 12/12/22 History 325 mg tablet glucometer, strips and supplies #1 ea 12/25/22 07/28/23 Unknown Rx levothyroxine 75 mcg tablet 75 mcg PO DAILY@07 #90 tabs 07/21/23 07/28/23 Unknown Rx (Synthroid) promethazine 25 mg tablet See Rx Instructions .Route 07/21/23 07/28/23 Unknown Rx .COMPLEX #90 tabs albuterol sulfate 90 mcg/actuation 2 puff inhalation QID PRN 07/28/23 07/28/23 Unknown Rx aerosol inhaler (Ventolin HFA) Shortness Of Breath #17 grams atorvastatin 40 mg tablet 40 mg PO BEDTIME #90 tabs 07/28/23 07/28/23 Unknown Rx bupropion HCl 150 mg tablet,12 hr 150 mg PO [facility] mental health #90 07/28/23 07/28/23 Unknown Rx sustained-release tabs bupropion HCl 300 mg 24 hr tablet, 300 mg PO DAILY #90 tabs 07/28/23 07/28/23 Unknown Rx extended release buspirone 10 mg tablet 10 mg PO BID anxiety #180 tabs 07/28/23 07/28/23 Unknown Rx carvedilol 25 mg tablet 25 mg PO BID #180 tabs 07/28/23 07/28/23 Unknown Rx clonidine HCl 0.1 mg tablet 0.1 mg PO BID PRN Blood Pressure 07/28/23 07/28/23 Unknown Rx #180 tabs fenofibrate 160 mg tablet 160 mg PO DAILY for fats/lipids 07/28/23 07/28/23 Unknown Rx #90 tabs metformin 500 mg tablet 500 mg PO BID diabetes #180 tabs 07/28/23 07/28/23 Unknown Rx mirtazapine 30 mg tablet 30 mg PO BEDTIME mental health #90 07/28/23 07/28/23 Unknown Rx tabs pantoprazole 40 mg tablet,delayed 40 mg PO DAILY PRN acid reflux #90 07/28/23 07/28/23 Unknown Rx release tabs Allergies Allergy/AdvReac Type Severity Reaction Status Date / Time butorphanol [From Stadol] Allergy SWELLING Verified 07/28/23 14:55 AND LESIONS latex Allergy rash Verified 07/28/23 14:55 PFSH Acute 2 PFSH: Medical History Sleep apnea Acquired hypertriglyceridemia Agoraphobia Pancreatitis due to biliary obstruction Anxiety and depression Chronic radicular low back pain [facility] - Dr. Brandon Leonardo Hx of acute pancreatitis ER 05/29/2021 Smoker unmotivated to quit Diabetes type 2, controlled Dyslipidemia associated with type 2 diabetes mellitus Elevated liver enzymes Chronic GERD COPD (chronic obstructive pulmonary disease) Wellness examination Hypertension Thoracic back pain [facility] - Dr. Brandon Leonardo Hypothalamic hypothyroidism Asthma Surgical History History of tubal ligation History of neck surgery History of appendectomy History of back surgery History of cholecystectomy Social History Smoking and tobacco/nicotine status: current every day tobacco/nicotine user cigarettes Packs smoked per day: 0.5 Second hand smoke exposure: Yes Alcohol intake: never Substance/Drug Use: never Lives independently: Yes Marital status: Legally Number of children: 4 Current occupational status: disabled Vitals/I&O/Wt Last Vital Signs Temp 97.9 F 08/03/23 02:50 Pulse 61 08/03/23 04:01 Resp 22 H 08/03/23 04:10 BP 192/112 08/03/23 04:01 Pulse Ox 100 08/03/23 04:10 O2 Del Method Room Air 08/03/23 03:11 Weight last 48 hrs Weight 81.647 kg Physical Exam 2 Const: COMMON NORMALS: no acute distress and patient oriented x3 HENMT: COMMON NORMALS: normocephalic HEAD & SCALP: normocephalic Eye: COMMON NORMALS: Equal, round and reactive pupils present and EOMs intact bilaterally Neck/C-Spine: COMMON NORMALS: no lymphadenopathy Resp: COMMON NORMALS: normal respiratory effort, No retractions, No use of accessory muscles and clear to auscultation bilaterally AUSCULTATION: clear to auscultation bilaterally Cardio: COMMON NORMALS: regular rate, regular rhythm, S1 normal heart sound present and S2 normal heart sound present RATE: regular rate RHYTHM: r egular rhythm HEART SOUNDS: S1 normal heart sound present and S2 normal heart sound present GI: INSPECTION: Yes normal to inspection and Yes abdominal distension A USCULTATION: Yes Hypoactive bowel sounds present PALPATION: Yes Tenderness to palpation present (GI) Details: LUQ and RUQ, No Guarding due to palpation present (GI) and No Rigid due to palpation : COMMON NORMALS: Yes no CVA tenderness Extremity: COMMON NORMALS: no calf tenderness and no pedal edema Neuro: COMMON NORMALS: patient oriented x3, CN's II-XII intact bilaterally and moves all extremities Psych: COMMON NORMALS: mental status grossly normal Data 08/03/23 02:58 08/03/23 02:58 A&P Assessment and plan (1) Dyslipidemia associated with type 2 diabetes mellitus: (2) Acquired hypertriglyceridemia: (3) Pancreatitis: Plan Acute pancreatitis ? Lipase 868 CT/CT abdomen pelvis w con* [id number] Liver: There is fatty infiltration of the liver. The liver appears somewhat enlarged, with right lobe length of about 21 cm. No definite/significant focal hepatic abnormality. Gallbladder and bile ducts: Prior cholecystectomy. Moderate extrahepatic biliary tree dilation, with common duct measuring up to about 17-18 mm. Mild intrahepatic biliary dilation. No visible common duct stone by CT. Significance uncertain, as the appearance is similar to the prior exam. Correlation with laboratory/bilirubin levels may be helpful to determine if there is any significant biliary obstruction. As clinically directed, MRCP might be considered if there is need to evaluate for possible common duct stone or stricture. Pancreas: Mild to moderate inflammatory changes around head and uncinate process the pancreas, compatible with acute pancreatitis. Please correlate with clinical and laboratory evaluation. Very small amount of peripancreatic and right retroperitoneal fluid. No definite pseudocyst. Pancreatic duct appears upper normal, about 3 mm in diameter. The pancreas appears to enhance homogeneously. Plan ? Obtain a serum triglyceride level, will consider insulin drip, she had hospitalization back in December had hypertriglyceridemia pancreatitis then, was managed medically without insulin drip ? Has chronic CBD dilatation, will consider MRCP based on clinical progress -N.p.o. -IV fluids -Dilaudid for pain control -Continue atorvastatin, -Continue fenofibrate -Full code -Lovenox for DVT prophylaxis Attestations 2 Medical Necessity Statement*: Patient requires hospitalization due to hypertriglyceridemia induced pancreatitis, inpatient, greater than 2 midnights Diagnoses Dyslipidemia associated with type 2 diabetes mellitus E11.69; E78.5 Acquired hypertriglyceridemia E78.1 Pancreatitis K85.90
[2023-08-03 05:29] LABS: Amphetamines Screen Urine Negative (Negative); Barbiturates Screen Urine Negative (Negative); Benzodiazepines Screen Urine Negative (Negative); Cocaine Screen Urine Negative (Negative); Opiate Screen Urine Positive (Negative); PCP Screen Urine Negative (Negative); THC Screen Urine Negative (Negative)
[2023-08-03 05:30] LABS: Procalcitonin 0.09 ng/mL (0-0.5)
[2023-08-03 05:31] LABS: Magnesium 1.6 mg/dL (1.7-2.3); Phosphorus 3.7 mg/dL (2.5-4.5); Thyroid Stimulating Hormone 4.53 uIU/mL (0.27-4.20)
[2023-08-03 05:42] LABS: Alcohol Level < 10 mg/dL (0-10); C Reactive Protein 4.3 mg/L (0.0-4.9); Cholesterol 175 mg/dL (0-200); HDL Cholesterol 25 mg/dL (60-100); LDL Cholesterol Calculated 90 mg/dL (50-129); Triglycerides 298 mg/dL (0-150)
[2023-08-03 06:00] LABS: Gamma Glutamyl Transferase 71 U/L (5-36)
[2023-08-03] MEDS: levothyroxine 75 mcg Tablet PO (06:44)
[2023-08-03] MEDS: sodium chloride 0.9% 1,000 ML 125 ML IV ×2 (06:44→17:22)
[2023-08-03] MEDS: pantoprazole 40 mg SDV IVP (06:44)
[2023-08-03] MEDS: buPROPion SR (12 HR) 150 mg Tablet PO (06:44)
--- NOTE | 2023-08-03 08:19 | PC.SOCIAL ---
IMM Update Pg. 2 of IMM updated and reviewed with patient who verbalized understanding. Copy provided.
[2023-08-03 08:33] LABS: Glucose Point of Care 109 mg/dL (70-110)
[2023-08-03] MEDS: enoxaparin 40 mg/0.4 mL Syringe SUBCUT (08:42)
[2023-08-03] MEDS: carvedilol 25 mg Tablet PO ×2 (08:42→17:19)
[2023-08-03] MEDS: BuSPIRONE 10 mg Tablet PO ×2 (08:42→17:19)
[2023-08-03] MEDS: fenofibrate 145 mg Tablet PO (08:42)
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
[2023-08-03] MEDS: lanolin oint 7 gm 1 APPLIC TOPICAL (10:50)
[2023-08-03 11:45] LABS: Glucose Point of Care 124 mg/dL (70-110)
[2023-08-03] MEDS: atorvastatin 40 mg Tablet PO (20:21)
[2023-08-03] MEDS: mirtazapine 30 mg Tablet PO (20:21)
[2023-08-03 20:53] LABS: Glucose Point of Care 141 mg/dL (70-110)
[2023-08-03] MEDS: ketorolac 30 mg/mL INJ 15 MG IVP (22:49)
--- NOTE | 2023-08-03 23:31 | P.PN_ITS ---
Subjective 2 Subjective: Complains of her pain being uncontrolled. Medications: Reviewed: Yes Vitals/I&O/Wt Last Vital Signs Temp 97.8 F 08/03/23 20:00 Pulse 55 L 08/03/23 20:00 Resp 18 08/03/23 20:21 BP 96/68 08/03/23 20:00 Pulse Ox 97 08/03/23 20:00 O2 Del Method Room Air 08/03/23 16:00 FiO2 21 08/03/23 06:45 08/03/23 08/03/23 08/04/23 14:59 22:59 06:59 Intake Total 975 / 975 Balance 975 / 975 Weight last 48 hrs Weight 86.183 kg Weight 81.647 kg Physical Exam 2 Narrative: General: No acute distress, AO x3 HEENT: PERRLA, pupils bilaterally equal and reactive, pallors not present Chest: Normal vesicular breath sounds, no added sounds, equal good air entry bilaterally CVS: S1-S2 regular, no murmurs, no tachycardia, no gallops, no rubs Abdomen: Tender to palpation epigastric region Neuro: No focal deficits, no facial deformity, AO x3, power 5/5 in all limbs Data 08/03/23 02:58 08/03/23 02:58 A&P Assessment and plan (1) Dyslipidemia associated with type 2 diabetes mellitus: (2) Acquired hypertriglyceridemia: (3) Pancreatitis: Plan Acute pancreatitis ? Lipase 868 CT/CT abdomen pelvis w con* [id number] Liver: There is fatty infiltration of the liver. The liver appears somewhat enlarged, with right lobe length of about 21 cm. No definite/significant focal hepatic abnormality. Gallbladder and bile ducts: Prior cholecystectomy. Moderate extrahepatic biliary tree dilation, with common duct measuring up to about 17-18 mm. Mild intrahepatic biliary dilation. No visible common duct stone by CT. Significance uncertain, as the appearance is similar to the prior exam. Correlation with laboratory/bilirubin levels may be helpful to determine if there is any significant biliary obstruction. As clinically directed, MRCP might be considered if there is need to evaluate for possible common duct stone or stricture. Pancreas: Mild to moderate inflammatory changes around head and uncinate process the pancreas, compatible with acute pancreatitis. Please correlate with clinical and laboratory evaluation. Very small amount of peripancreatic and right retroperitoneal fluid. No definite pseudocyst. Pancreatic duct appears upper normal, about 3 mm in diameter. The pancreas appears to enhance homogeneously. Plan ? Obtain a serum triglyceride level, will consider insulin drip, she had hospitalization back in December had hypertriglyceridemia pancreatitis then, was managed medically without insulin drip ? Has chronic CBD dilatation, will consider MRCP based on clinical progress -N.p.o. -IV fluids -Dilaudid for pain control -Continue atorvastatin, -Continue fenofibrate -Full code -Lovenox for DVT prophylaxis Plan for today August 03, 2023. Pain is currently not well-controlled. Increase morphine to hydromorphone from every 4 hours to every 3 hours IV. Add Toradol 15 mg IV every 6 hours. Patient is unable to get an MRCP as she has a spinal cord stimulator in her back therefore not compatible with an MRI. Will trend her LFTs. If continues to trend up will likely need transfer to GI services for ERCP. Patient reports having a previous stent placed into the CBD at [facility] several months ago. The stent was eventually removed. Diagnostics at the time were obtained via ERCP rather than an MRCP. Attestations 2 Medical Necessity Statement*: Inadequate pain control, needs optimization Coding Level of Care Code Acute Code for Chg Fwd Diagnoses Dyslipidemia associated with type 2 diabetes mellitus E11.69; E78.5 Acquired hypertriglyceridemia E78.1 Pancreatitis K85.90
[2023-08-04] VITALS (16 sets, daily range): BP systolic 105–145; BP diastolic 75–90; PULSE 56–89; RESP 16–18; TEMP 36.6–37.6; O2SAT 94–98
[2023-08-04] MEDS: HYDROmorphone 1 mg/mL INJ 1 mL IVP ×6 (00:21→21:01)
[2023-08-04] MEDS: sodium chloride 0.9% 1,000 ML 125 ML IV ×3 (00:58→20:58)
[2023-08-04] MEDS: buPROPion SR (12 HR) 150 mg Tablet PO (06:06)
[2023-08-04] MEDS: levothyroxine 75 mcg Tablet PO (06:06)
[2023-08-04 06:40] LABS: Glucose Point of Care 112 mg/dL (70-110)
[2023-08-04] MEDS: pantoprazole 40 mg SDV IVP (08:30)
[2023-08-04] MEDS: fenofibrate 145 mg Tablet PO (08:32)
[2023-08-04] MEDS: carvedilol 25 mg Tablet PO ×2 (08:32→17:06)
[2023-08-04] MEDS: enoxaparin 40 mg/0.4 mL Syringe SUBCUT (08:32)
[2023-08-04] MEDS: BuSPIRONE 10 mg Tablet PO ×2 (08:32→17:06)
--- NOTE | 2023-08-04 10:06 | PC.CHAP ---
Pastoral Care Encounter/Spiritual Assessment Type of Contact [] Declined industrial organizational psychologist visit [] Patient/Family/Request visit [] Outpatient visit [] Follow-up visit [] Physician referral [] Code/Alert [x] Routine visit [] Staff referral [] Actively dying [] Patient sleeping [] Family support [] [] Out of room [] Palliative care [] [] Receiving care in room [] Pre-surgical visit [] Trauma [] Long length of stay [] ICU visit [] Other: Relational/Emotional Strength [x] Patient feels connected with others/family/visitors/staff [] Distress [] Loneliness/isolation [] Abandonment Spirituality of Patient [x] Person of Karina [] Attends Faith of their Karina [x] Believes in Prayer [] Reads Bible or Orthodoxy materials [] There are Spiritual issues to be addressed Boarding Mother Interventions [x] Prayer [x] Active listening [] Non-anxious presence [x] Spiritual/emotional support [] Crisis/trauma care [] Spiritual counseling [] Bereavement support [] Provided bereavement packet [] Provided Bible/devotional materials [] Provided toy/stuffed animal, coloring book to patient or family member [] Provided Communion [] Anointing/[place] [] Salvation [x] Completed spiritual assessment [] Other: Impact on Illness or Injury [] Angry [] Fearful [] Anxious [] Often cries [] Exhaustion [] Unable to work [] Unable to attend protestant [] Unable to walk/stand [] Unable to read [] Unable to drive [] Unable to eat/drink [] Unable to sleep [] Unable to be with family [] Patient intubated [] Other: Summary Time spent with patient 5 min
[2023-08-04 10:57] LABS: Glucose Point of Care 108 mg/dL (70-110)
--- NOTE | 2023-08-04 16:32 | P.PN_ITS ---
Subjective 2 Subjective: States pain is better controlled but still pretty persistent. Declines trial of fentanyl patch as she is worried about the side effects. Has not had a bowel movement yet, passing minimal flatus. Would like to try clear liquid diet today. Medications: Reviewed: Yes Vitals/I&O/Wt Last Vital Signs Temp 99.3 F 08/04/23 15:23 Pulse 59 L 08/04/23 15:23 Resp 16 08/04/23 15:23 BP 130/77 08/04/23 15:23 Pulse Ox 97 08/04/23 15:23 O2 Del Method Room Air 08/04/23 15:23 FiO2 21 08/03/23 06:45 08/04/23 08/04/23 08/04/23 06:59 14:59 22:59 Intake Total 950 / 1925 952.083 / 952.083 Balance 950 / 1925 952.083 / 952.083 Weight last 48 hrs Weight 88.587 kg Weight 86.183 kg Weight 81.647 kg Physical Exam 2 Narrative: General: No acute distress, AO x3 HEENT: PERRLA, pupils bilaterally equal and reactive, pallors not present Chest: Normal vesicular breath sounds, no added sounds, equal good air entry bilaterally CVS: S1-S2 regular, no murmurs, no tachycardia, no gallops, no rubs Abdomen: Soft, TTP epigastrium , no organomegaly, bowel sounds present Neuro: No focal deficits, no facial deformity, AO x3, power 5/5 in all limbs Data 08/03/23 02:58 08/03/23 02:58 A&P Assessment and plan (1) Dyslipidemia associated with type 2 diabetes mellitus: (2) Acquired hypertriglyceridemia: (3) Pancreatitis: Plan Acute pancreatitis ? Lipase 868 CT/CT abdomen pelvis w con* [id number] Liver: There is fatty infiltration of the liver. The liver appears somewhat enlarged, with right lobe length of about 21 cm. No definite/significant focal hepatic abnormality. Gallbladder and bile ducts: Prior cholecystectomy. Moderate extrahepatic biliary tree dilation, with common duct measuring up to about 17-18 mm. Mild intrahepatic biliary dilation. No visible common duct stone by CT. Significance uncertain, as the appearance is similar to the prior exam. Correlation with laboratory/bilirubin levels may be helpful to determine if there is any significant biliary obstruction. As clinically directed, MRCP might be considered if there is need to evaluate for possible common duct stone or stricture. Pancreas: Mild to moderate inflammatory changes around head and uncinate process the pancreas, compatible with acute pancreatitis. Please correlate with clinical and laboratory evaluation. Very small amount of peripancreatic and right retroperitoneal fluid. No definite pseudocyst. Pancreatic duct appears upper normal, about 3 mm in diameter. The pancreas appears to enhance homogeneously. Plan ? Obtain a serum triglyceride level, will consider insulin drip, she had hospitalization back in December had hypertriglyceridemia pancreatitis then, was managed medically without insulin drip ? Has chronic CBD dilatation, will consider MRCP based on clinical progress -N.p.o. -IV fluids -Dilaudid for pain control -Continue atorvastatin, -Continue fenofibrate -Full code -Lovenox for DVT prophylaxis Plan for today August 03, 2023. Pain is currently not well-controlled. Increase morphine to hydromorphone from every 4 hours to every 3 hours IV. Add Toradol 15 mg IV every 6 hours. Patient is unable to get an MRCP as she has a spinal cord stimulator in her back therefore not compatible with an MRI. Will trend her LFTs. If continues to trend up will likely need transfer to GI services for ERCP. Patient reports having a previous stent placed into the CBD at [place] several months ago. The stent was eventually removed. Diagnostics at the time were obtained via ERCP rather than an MRCP. Plan for today August 04, 2023. Pain is better controlled today. Continues to be on IV hydration with normal saline at 125 cc an hour. Will continue with current regimen of hydromorphone 1 mg IV every 3 hours and ketorolac 15 mg IV every 6 hours. Repeat LFTs in AM. If uptrending may need to transfer for ERCP. Patient wishes to try a clear liquid diet today. Advanced to the same to assess tolerability. Attestations 2 Medical Necessity Statement*: Acute pancreatitis, ongoing need for IV hydration, pain management via IV opiates, trial of clear liquid diet today Coding Level of Care Code Acute Code for Chg Fwd Diagnoses Dyslipidemia associated with type 2 diabetes mellitus E11.69; E78.5 Acquired hypertriglyceridemia E78.1 Pancreatitis K85.90
[2023-08-04 16:50] LABS: Glucose Point of Care 188 mg/dL (70-110)
[2023-08-04] MEDS: insulin lispro 100 unit/1 mL SUBCUT (17:05)
[2023-08-04] MEDS: atorvastatin 40 mg Tablet PO (21:00)
[2023-08-04] MEDS: mirtazapine 30 mg Tablet PO (21:00)
[2023-08-04 21:13] LABS: Glucose Point of Care 184 mg/dL (70-110)
[2023-08-05] VITALS (14 sets, daily range): BP systolic 145–185; BP diastolic 80–99; PULSE 53–62; RESP 16–18; TEMP 36.4–36.9; O2SAT 95–100; BMI 33.5
[2023-08-05] MEDS: HYDROmorphone 1 mg/mL INJ 1 mL IVP ×6 (01:10→21:21)
[2023-08-05] MEDS: sodium chloride 0.9% 1,000 ML 125 ML IV ×3 (01:13→20:11)
[2023-08-05 06:16] LABS: Basophils % 0.6 %; Eosinophils # 0.3 10^3/uL (0.0-0.8); Eosinophils % 3.8 %; Hematocrit 38.2 % (36-47); Lymphocytes # 2.1 10^3/uL (0.8-4.8); Lymphocytes % 32.5 %; Mean Corpuscular HGB Conc 31.4 g/dL (30-55); Mean Corpuscular Volume 98.7 fl (85-98); Mean Platelet Volume 11.7 fL (7.4-10.4); Monocytes # 0.6 10^3/uL (0.2-0.9); Monocytes % 8.8 %; Neutrophils % 53.8 %; Nucleated Red Blood Cells % 0 %; Platelet Count 175 10^3/cmm (157-399); Red Blood Count 3.87 10^6/uL (3.85-5.65); Red Cell Distribution Width 13.2 % (12.1-15.1)
[2023-08-05] MEDS: levothyroxine 75 mcg Tablet PO (06:16)
[2023-08-05] MEDS: buPROPion SR (12 HR) 150 mg Tablet PO (06:17)
[2023-08-05 06:39] LABS: Alanine Aminotransferase 18 U/L (0-33); Albumin Level 3.8 g/dL (3.5-5.2); Alkaline Phosphatase 73 U/L (35-105); Anion Gap 13.5 (5-19); Aspartate Amino Transferase 21 U/L (0-32); Blood Urea Nitrogen 6 mg/dL (6-20); Calcium 8.2 mg/dL (8.5-10.5); Carbon Dioxide 22 mmol/L (22-29); Chloride 111 mmol/L (98-107); Globulin 2.8 g/dL (1.3-4.6); Glomerular Filtration Rate 88.6 mL/min (90-130); Glucose 123 mg/dL (65-115); Osmolality Calculated 295 mOsm/kg (285-295); Potassium 3.5 mmol/L (3.5-5.1); Sodium 143 mmol/L (136-145); Total Bilirubin 0.3 mg/dL (0.15-1.2); Total Protein 6.6 g/dL (6.6-8.7)
[2023-08-05 07:12] LABS: Glucose Point of Care 145 mg/dL (70-110)
[2023-08-05] MEDS: BuSPIRONE 10 mg Tablet PO ×2 (08:41→17:25)
[2023-08-05] MEDS: pantoprazole 40 mg SDV IVP (08:41)
[2023-08-05] MEDS: carvedilol 25 mg Tablet PO ×2 (08:41→17:25)
[2023-08-05] MEDS: fenofibrate 145 mg Tablet PO (08:41)
[2023-08-05] MEDS: enoxaparin 40 mg/0.4 mL Syringe SUBCUT (08:41)
[2023-08-05 10:48] LABS: Glucose Point of Care 165 mg/dL (70-110)
[2023-08-05] MEDS: insulin lispro 100 unit/1 mL SUBCUT (12:44)
--- NOTE | 2023-08-05 14:55 | PC.SOCIAL ---
IMM Update pg 2 of IMM updated and reviewed w/ patient. Copy provided and copy dated, initialed and placed in chart.
--- NOTE | 2023-08-05 14:58 | PM.PN ---
Subjective Subjective: No acute interim events. Patient feels better. Wishes to advance diet. LFTs have now normalized. Afebrile. Leukocytosis resolved. Medications: Reviewed: Yes Vitals/I&O/Wt Last Vital Signs Temp 97.5 F L 08/05/23 11:45 Pulse 53 L 08/05/23 11:45 Resp 18 08/05/23 12:45 BP 145/80 08/05/23 11:45 Pulse Ox 96 08/05/23 11:45 O2 Del Method Room Air 08/05/23 11:45 FiO2 21 08/03/23 06:45 08/04/23 08/05/23 08/05/23 22:59 06:59 14:59 Intake Total 1360 / 2312.083 651.25 / 2963.333 1360 / 1360 Balance 1360 / 2312.083 651.25 / 2963.333 1360 / 1360 Weight last 48 hrs Weight 88.587 kg Weight 88.587 kg Physical Exam Narrative: General: No acute distress, AO x3 HEENT: PERRLA, pupils bilaterally equal and reactive, pallors not present Chest: Normal vesicular breath sounds, no added sounds, equal good air entry bilaterally CVS: S1-S2 regular, no murmurs, no tachycardia, no gallops, no rubs Abdomen: Soft, TTP epigastrium , no organomegaly, bowel sounds present Neuro: No focal deficits, no facial deformity, AO x3, power 5/5 in all limbs Data 08/05/23 05:35 08/05/23 05:35 A&P Assessment and plan (1) Dyslipidemia associated with type 2 diabetes mellitus: (2) Acquired hypertriglyceridemia: (3) Pancreatitis: Plan Acute pancreatitis ? Lipase 868 CT/CT abdomen pelvis w con* [id number] Liver: There is fatty infiltration of the liver. The liver appears somewhat enlarged, with right lobe length of about 21 cm. No definite/significant focal hepatic abnormality. Gallbladder and bile ducts: Prior cholecystectomy. Moderate extrahepatic biliary tree dilation, with common duct measuring up to about 17-18 mm. Mild intrahepatic biliary dilation. No visible common duct stone by CT. Significance uncertain, as the appearance is similar to the prior exam. Correlation with laboratory/bilirubin levels may be helpful to determine if there is any significant biliary obstruction. As clinically directed, MRCP might be considered if there is need to evaluate for possible common duct stone or stricture. Pancreas: Mild to moderate inflammatory changes around head and uncinate process the pancreas, compatible with acute pancreatitis. Please correlate with clinical and laboratory evaluation. Very small amount of peripancreatic and right retroperitoneal fluid. No definite pseudocyst. Pancreatic duct appears upper normal, about 3 mm in diameter. The pancreas appears to enhance homogeneously. Plan ? Obtain a serum triglyceride level, will consider insulin drip, she had hospitalization back in December had hypertriglyceridemia pancreatitis then, was managed medically without insulin drip ? Has chronic CBD dilatation, will consider MRCP based on clinical progress -N.p.o. -IV fluids -Dilaudid for pain control -Continue atorvastatin, -Continue fenofibrate -Full code -Lovenox for DVT prophylaxis Plan for today August 03, 2023. Pain is currently not well-controlled. Increase morphine to hydromorphone from every 4 hours to every 3 hours IV. Add Toradol 15 mg IV every 6 hours. Patient is unable to get an MRCP as she has a spinal cord stimulator in her back therefore not compatible with an MRI. Will trend her LFTs. If continues to trend up will likely need transfer to GI services for ERCP. Patient reports having a previous stent placed into the CBD at [place] several months ago. The stent was eventually removed. Diagnostics at the time were obtained via ERCP rather than an MRCP. Plan for today August 04, 2023. Pain is better controlled today. Continues to be on IV hydration with normal saline at 125 cc an hour. Will continue with current regimen of hydromorphone 1 mg IV every 3 hours and ketorolac 15 mg IV every 6 hours. Repeat LFTs in AM. If uptrending may need to transfer for ERCP. Patient wishes to try a clear liquid diet today. Advanced to the same to assess tolerability. Plan for today August 05, 2023. Pain continues to be better controlled..Overlapping with oral opiates in an attempt to calm down on need for IV medications. She has needed 7 doses of IV hydromorphone in the last 24 hours. Advance diet to GI soft and assess for tolerability. Continue IV fluids but reduce dose from 125/h to 75/h. Attestations Medical Necessity Statement*: Transition to oral pain medication, assess for tolerability, advance diet, cut back on IV fluids and reassess. Coding Level of Care Code Acute Code for Chg Fwd Diagnoses Dyslipidemia associated with type 2 diabetes mellitus E11.69; E78.5 Acquired hypertriglyceridemia E78.1 Pancreatitis K85.90
[2023-08-05 16:54] LABS: Glucose Point of Care 109 mg/dL (70-110)
[2023-08-05] MEDS: atorvastatin 40 mg Tablet PO (20:11)
[2023-08-05] MEDS: mirtazapine 30 mg Tablet PO (20:11)
--- NOTE | 2023-08-05 21:21 | PC.NURSE ---
Addendum entered by Racheal Musa RN 08/05/23 21:27: Ordered to resume this home medication for sbp>180 or dbp>90. Original Note: Patient's current blood pressure is 185/93. She takes clonidine 0.1 mg BID PRN at home, but it is not ordered for her here. Dr. Patel notified.
[2023-08-05] MEDS: cloNIDine 0.1 mg Tablet PO (21:32)
[2023-08-05 22:05] LABS: Glucose Point of Care 116 mg/dL (70-110)
[2023-08-05] MEDS: ketorolac 30 mg/mL INJ 15 MG IVP (22:22)
[2023-08-06] VITALS (9 sets, daily range): BP systolic 156–165; BP diastolic 82–93; PULSE 53–58; RESP 16–20; TEMP 36.4–36.6; O2SAT 95–99; BMI 30.9
[2023-08-06] MEDS: HYDROmorphone 1 mg/mL INJ 1 mL IVP ×4 (01:58→11:41)
[2023-08-06] MEDS: sodium chloride 0.9% 1,000 ML 125 ML IV (04:00)
[2023-08-06] MEDS: levothyroxine 75 mcg Tablet PO (04:53)
[2023-08-06] MEDS: buPROPion SR (12 HR) 150 mg Tablet PO (04:53)
[2023-08-06 06:11] LABS: Basophils % 0.7 %; Eosinophils # 0.3 10^3/uL (0.0-0.8); Eosinophils % 4.9 %; Hematocrit 34.1 % (36-47); Lymphocytes # 1.9 10^3/uL (0.8-4.8); Lymphocytes % 33.5 %; Mean Corpuscular HGB Conc 32.8 g/dL (30-55); Mean Corpuscular Hemoglobin 30.7 pg (27-33); Mean Corpuscular Volume 93.4 fl (85-98); Mean Platelet Volume 11.2 fL (7.4-10.4); Monocytes # 0.4 10^3/uL (0.2-0.9); Monocytes % 7.2 %; Neutrophils # 3.07 10^3/uL (1.8-7.7); Neutrophils % 53.5 %; Nucleated Red Blood Cells % 0 %; Platelet Count 177 10^3/cmm (157-399); Red Blood Count 3.65 10^6/uL (3.85-5.65); Red Cell Distribution Width 13.2 % (12.1-15.1); White Blood Count 5.73 10^3/uL (3.29-11.43)
[2023-08-06 06:32] LABS: Alanine Aminotransferase 16 U/L (0-33); Albumin Level 3.8 g/dL (3.5-5.2); Alkaline Phosphatase 72 U/L (35-105); Anion Gap 14.6 (5-19); Aspartate Amino Transferase 22 U/L (0-32); Blood Urea Nitrogen 5 mg/dL (6-20); Calcium 8.3 mg/dL (8.5-10.5); Carbon Dioxide 23 mmol/L (22-29); Chloride 109 mmol/L (98-107); Globulin 2.7 g/dL (1.3-4.6); Glomerular Filtration Rate 105.8 mL/min (90-130); Glucose 130 mg/dL (65-115); Osmolality Calculated 295 mOsm/kg (285-295); Potassium 3.6 mmol/L (3.5-5.1); Sodium 143 mmol/L (136-145); Total Bilirubin 0.3 mg/dL (0.15-1.2); Total Protein 6.5 g/dL (6.6-8.7)
[2023-08-06 07:19] LABS: Glucose Point of Care 208 mg/dL (70-110)
[2023-08-06] MEDS: pantoprazole 40 mg SDV IVP (08:28)
[2023-08-06] MEDS: carvedilol 25 mg Tablet PO (08:40)
[2023-08-06] MEDS: fenofibrate 145 mg Tablet PO (08:41)
[2023-08-06] MEDS: BuSPIRONE 10 mg Tablet PO (08:41)
[2023-08-06] MEDS: insulin lispro 100 unit/1 mL SUBCUT (08:41)
[2023-08-06] MEDS: enoxaparin 40 mg/0.4 mL Syringe SUBCUT (08:41)
--- NOTE | 2023-08-06 10:46 | PC.CHAP ---
Pastoral Care Encounter/Spiritual Assessment Type of Contact [] Declined cornetist visit [] Patient/Family/Request visit [] Outpatient visit [] Follow-up visit [] Physician referral [] Code/Alert [] Routine visit [] Staff referral [] Actively dying [] Patient sleeping [] Family support [] [] Out of room [] Palliative care [] [] Receiving care in room [] Pre-surgical visit [] Trauma [] Long length of stay [] ICU visit [X] Other: isolation Relational/Emotional Strength [] Patient feels connected with others/family/visitors/staff [] Distress [] Loneliness/isolation [] Abandonment Spirituality of Patient [] Person of Karina [] Attends Mu-Ism of their Karina [] Believes in Prayer [] Reads Bible or Episcopalian materials [] There are Spiritual issues to be addressed Machine Feed Operator Interventions [] Prayer [] Active listening [] Non-anxious presence [] Spiritual/emotional support [] Crisis/trauma care [] Spiritual counseling [] Bereavement support [] Provided bereavement packet [] Provided Bible/devotional materials [] Provided toy/stuffed animal, coloring book to patient or family member [] Provided Communion [] Anointing/[place] [] Salvation [] Completed spiritual assessment [] Other: Impact on Illness or Injury [] Angry [] Fearful [] Anxious [] Often cries [] Exhaustion [] Unable to work [] Unable to attend tenriism [] Unable to walk/stand [] Unable to read [] Unable to drive [] Unable to eat/drink [] Unable to sleep [] Unable to be with family [] Patient intubated [] Other: Summary isolation Time spent with patient 5 mins
[2023-08-06 10:52] LABS: Glucose Point of Care 106 mg/dL (70-110)
--- NOTE | 2023-08-06 11:27 | P.DS_ITS ---
Discharge Providers Date of Admission: 08/03/23 06:10 Date of Discharge: August 06, 2023 Attending Provider at Admission: Teto Patel MD Attending Provider at Discharge: Nadege Yoon MD Primary Care Provider: Christiano Kendall MD Diagnoses at Discharge Discharge Diagnosis (1) Dyslipidemia associated with type 2 diabetes mellitus: Status: Acute (2) Acquired hypertriglyceridemia: Status: Acute (3) Pancreatitis: Status: Acute (4) Herpes: Status: Acute Reason for Visit Reason for Visit: Pancretitus Hurting Hospital Course Hospital Course 48 year old female with a past medical history Hypertriglyceridemia induced pancreatitis, history of gallstone pancreatitis, hypertension, hyperlipidemia, type 2 diabetes mellitus, history of cholecystectomy, history of chronic CBD dilatation, history of biliary stent with subsequent removal, who presented to [facility] due to 48-hour history of abdominal pain. Ct showed Mild to moderate inflammatory changes around head and uncinate process the pancreas, compatible with acute pancreatitis. Lipase was elevated. She was admitted to the hospital for management of acute pancreatitis. She needed pain management with iv opiates, IVF NS @ 125 cc/hr continuously, diet was slowly advanced from NPO to Gi soft which she is tolerating currently. Her pain is present but improved over day of admission. LFTS normalized, low suspicion for biliary obstruction. She developed cold sore blisters over her upper lip today. Acyclovir ointment has been prescribed, should she fail to improve with topicals in 48- 72 hrs, instructed to start valtrex. Physical Exam Narrative: General: No acute distress, AO x3 HEENT: PERRLA, pupils bilaterally equal and reactive, pallors not present Chest: Normal vesicular breath sounds, no added sounds, equal good air entry bilaterally CVS: S1-S2 regular, no murmurs, no tachycardia, no gallops, no rubs Abdomen: Soft, nontender, no organomegaly, bowel sounds present Neuro: No focal deficits, no facial deformity, AO x3, power 5/5 in all limbs Discharge Data Studies Completed and Pending Completed Studies During Hospitalization Category Date Time Status CT abdomen pelvis w con* [id number] Stat Cat Scan 08/03/23 02:56 Completed Radiology Impressions Abdomen/Pelvis CT 08/03/23 02:56 IMPRESSION: 1. Findings compatible with acute pancreatitis, see above details. 2. Moderate biliary tree dilation, see above discussion. 3. Prior cholecystectomy. 4. Possible mucosa/wall thickening involving the proximal duodenum, see above discussion. 5. No free air or significant bowel distention. No evidence for bowel obstruction. 6. Possibility of mild colitis involving the sigmoid and descending colon, see above discussion. 7. Other findings discussed above. Laboratory Results WBC 5.73 10^3/uL (3.29-11.43) 08/06/23 05:52 RBC 3.65 10^6/uL (3.85-5.65) L 08/06/23 05:52 Hgb 11.20 g/dL (11.27-16.99) L 08/06/23 05:52 Hct 34.1 % (36-47) L 08/06/23 05:52 MCV 93.4 fl (85-98) 08/06/23 05:52 MCH 30.7 pg (27-33) 08/06/23 05:52 MCHC 32.8 g/dL (30-55) 08/06/23 05:52 RDW 13.2 % (12.1-15.1) 08/06/23 05:52 Plt Count 177 10^3/cmm (157-399) 08/06/23 05:52 MPV 11.2 fL (7.4-10.4) H 08/06/23 05:52 Neut % (Auto) 53.5 % 08/06/23 05:52 Lymph % (Auto) 33.5 % 08/06/23 05:52 Ocean % (Auto) 7.2 % 08/06/23 05:52 Eos % (Auto) 4.9 % 08/06/23 05:52 Baso % (Auto) 0.7 % 08/06/23 05:52 Neut # (Auto) 3.07 10^3/uL (1.8-7.7) 08/06/23 05:52 Lymph # (Auto) 1.9 10^3/uL (0.8-4.8) 08/06/23 05:52 Ocean # (Auto) 0.4 10^3/uL (0.2-0.9) 08/06/23 05:52 Eos # (Auto) 0.3 10^3/uL (0.0-0.8) 08/06/23 05:52 Baso # (Auto) 0.0 10^3/uL (0.0-0.1) 08/06/23 05:52 Nucleated RBC % (auto) 0 % 08/06/23 05:52 Nucleated RBCs # 0.0 /100WBC 08/06/23 05:52 Sodium 143 mmol/L (136-145) 08/06/23 05:52 Potassium 3.6 mmol/L (3.5-5.1) 08/06/23 05:52 Chloride 109 mmol/L (98-107) H 08/06/23 05:52 Carbon Dioxide 23 mmol/L (22-29) 08/06/23 05:52 Anion Gap 14.6 (5-19) 08/06/23 05:52 BUN 5 mg/dL (6-20) L 08/06/23 05:52 Creatinine 0.6 mg/dL (0.5-0.9) 08/06/23 05:52 GFR Calculation 105.8 mL/min (90-130) 08/06/23 05:52 Glucose 130 mg/dL (65-115) H 08/06/23 05:52 POC Glucose 106 mg/dL (70-110) 08/06/23 10:46 Estimat Average Glucose 137 08/03/23 Unknown Hemoglobin A1c 6.4 % (4.0-6.0) H 08/03/23 Unknown Calculated Osmolality 295 mOsm/kg (285-295) 08/06/23 05:52 Calcium 8.3 mg/dL (8.5-10.5) L 08/06/23 05:52 Phosphorus 3.7 mg/dL (2.5-4.5) 08/03/23 04:55 Magnesium 1.6 mg/dL (1.7-2.3) L 08/03/23 04:55 Total Bilirubin 0.3 mg/dL (0.15-1.2) 08/06/23 05:52 GGT 71 U/L (5-36) H 08/03/23 04:55 AST 22 U/L (0-32) 08/06/23 05:52 ALT 16 U/L (0-33) 08/06/23 05:52 Alkaline Phosphatase 72 U/L (35-105) 08/06/23 05:52 C-Reactive Protein 4.3 mg/L (0.0-4.9) 08/03/23 04:55 Total Protein 6.5 g/dL (6.6-8.7) L 08/06/23 05:52 Albumin 3.8 g/dL (3.5-5.2) 08/06/23 05:52 Globulin 2.7 g/dL (1.3-4.6) 08/06/23 05:52 Triglycerides 298 mg/dL (0-150) H 08/03/23 04:55 Cholesterol 175 mg/dL (0-200) 08/03/23 04:55 LDL Cholesterol, Calc 90 mg/dL (50-129) 08/03/23 04:55 HDL Cholesterol 25 mg/dL (60-100) L 08/03/23 04:55 LDL/HDL Ratio 3.60 RATIO (0.00-3.22) H 08/03/23 04:55 Cholesterol/HDL Ratio 7.00 mg/dL (0.0-4.40) H 08/03/23 04:55 Lipase 868 U/L (13-60) H 08/03/23 02:58 Procalcitonin 0.09 ng/mL (0-0.5) 08/03/23 04:55 TSH 4.53 uIU/mL (0.27-4.20) H 08/03/23 04:55 Urine Opiates Screen Positive ng/mL (Negative) H 08/03/23 05:13 Ur Barbiturates Screen Negative ng/mL (Negative) 08/03/23 05:13 Ur Phencyclidine Scrn Negative ng/mL (Negative) 08/03/23 05:13 Ur Amphetamines Screen Negative ng/mL (Negative) 08/03/23 05:13 U Benzodiazepines Scrn Negative ng/mL (Negative) 08/03/23 05:13 Urine Cocaine Screen Negative ng/mL (Negative) 08/03/23 05:13 U Marijuana (THC) Screen Negative ng/mL (Negative) 08/03/23 05:13 Ethyl Alcohol < 10 mg/dL (0-10) 08/03/23 04:55 Vitals Last Vital Signs Temp 97.9 F 08/06/23 10:46 Pulse 56 L 08/06/23 10:46 Resp 16 08/06/23 10:46 BP 165/93 08/06/23 10:46 Pulse Ox 97 08/06/23 10:46 O2 Del Method Room Air 08/06/23 10:46 FiO2 21 08/03/23 06:45 Discharge Plan Discharge Patient Disposition: Home Condition: Stable Prescriptions: New acyclovir 5 % cream 1 applic topical 5XD 5 Days Qty: 5 0RF Valtrex 1 gram tablet 1,000 mg PO BID 5 Days Qty: 10 0RF Continued (DME) glucometer, strips and supplies See Rx Instructions .Route .MEDSUPPLY Qty: 1 0RF Rx Instructions: As directed check glucose, once daily bupropion HCl 300 mg tablet extended release 24 hr 300 mg PO DAILY Qty: 90 1RF Rx Instructions: along with 150mg [id number] bupropion HCl 150 mg tablet sustained-release 12 hr 150 mg PO QAM Qty: 90 1RF Rx Instructions: along with 300mg [id number] atorvastatin 40 mg tablet 40 mg PO BEDTIME Qty: 90 3RF albuterol sulfate [Ventolin HFA] 90 mcg/actuation HFA aerosol inhaler 2 puff INHALATION QID PRN (Reason: Shortness Of Breath) Qty: 17 2RF buspirone 10 mg tablet 10 mg PO BID Qty: 180 1RF carvedilol 25 mg tablet 25 mg PO BID Qty: 180 1RF clonidine HCl 0.1 mg tablet 0.1 mg PO BID PRN (Reason: Blood Pressure) Qty: 180 2RF metformin 500 mg tablet 500 mg PO BID Qty: 180 1RF mirtazapine 30 mg tablet 30 mg PO BEDTIME Qty: 90 1RF pantoprazole 40 mg tablet,delayed release (DR/EC) 40 mg PO DAILY PRN (Reason: acid reflux) Qty: 90 1RF Synthroid 75 mcg tablet 75 mcg PO DAILY@07 Qty: 90 1RF promethazine 25 mg tablet See Rx Instructions .ROUTE .COMPLEX Qty: 90 1RF Dose Instruction: TAKE ONE TABLET BY MOUTH THREE TIMES A DAY NEEDED FOR NAUSEA AND VOMITING Rx Instructions: TAKE ONE TABLET BY MOUTH THREE TIMES A DAY NEEDED FOR NAUSEA AND VOMITING fenofibrate 160 mg tablet 160 mg PO DAILY Qty: 90 1RF Excedrin Migraine 250-250-65 mg Tablet 1 - 2 tab PO Q6H PRN (Reason: Migraine Headache) cyclobenzaprine 10 mg tablet 10 mg PO TID PRN (Reason: Spasms) hydrocodone-acetaminophen 10-325 mg tablet 1 tab PO 5XD PRN (Reason: Pain) 5 Days Qty: 25 0RF Discharge Orders: Discharge Order (Routine); Ordered 08/06/23 Ordered By: Nadege Yoon Referrals: Christiano Kendall MD [Primary Care Provider] - Discharge Diet: Advance as tolerated Discharge Activity: Resume usual activity Patient Instructions: Opioid Safety Plan of Treatment: Please follow up with your residential property tax appraiser in [place] for recurrent pancreatitis . Discharge Attestations Time Spent in Discharge Care*: greater than 30 min Status at Discharge: Cognitive status at discharge: cognitively intact , Behavioral status at discharge: cooperative , Quality Metrics Clinical Quality Measures [ No reported AMI, CVA or VTE this stay] Coding Level of Care Code Acute Code for Chg Fwd Diagnoses Dyslipidemia associated with type 2 diabetes mellitus E11.69; E78.5 Acquired hypertriglyceridemia E78.1 Pancreatitis K85.90 Herpes B00.9
== END 2023-08-06 13:10 | disposition home or self-care (01) | DRG 440 ==
LOC: ER 05:52 → MEDSURG 06:23
PROVIDERS: Admitting Provider Family Medicine; Emergency Provider Emergency Medicine; PCP Family Medicine Adult Medicine; Visit Provider Student in an Organized Health Care Education/Training Program
DX: K85.90 Acute pancreatitis without necrosis or infection, unspecified (principal); E78.1 Pure hyperglyceridemia; F41.9 Anxiety disorder, unspecified; F32.A Depression, unspecified; E11.9 Type 2 diabetes mellitus without complications; K21.9 Gastro-esophageal reflux disease without esophagitis; J44.9 Chronic obstructive pulmonary disease, unspecified; I10 Essential (primary) hypertension; F17.210 Nicotine dependence, cigarettes, uncomplicated; G89.29 Other chronic pain; M54.50 Low back pain, unspecified; E03.8 Other specified hypothyroidism; B00.1 Herpesviral vesicular dermatitis
CPT/HCPCS: 36415; 36416; 74177; 80053; 80061; 80306; 80307; 82962; 82977; 83036; 83690; 83735; 84100; 84145; 84443; 85025; 86140; 94664; 96372; 96374; 96375; 99285; C9113; J0360; J1170; J1650; J1815; J1885; J2405; J7030; Q3014; Q9967

== ENCOUNTER → 2024-01-26 08:16 | Outpatient (BNVA) | payer MEDICARE, MEDICAID, SELFPAY | PROVIDERS: PCP Family Medicine Adult Medicine; Visit Provider Family Medicine Adult Medicine | DX: I10 Essential (primary) hypertension (principal); E11.9 Type 2 diabetes mellitus without complications; E11.69 Type 2 diabetes mellitus with other specified complication; E78.5 Hyperlipidemia, unspecified; E03.9 Hypothyroidism, unspecified; K59.01 Slow transit constipation | CPT/HCPCS: 80053; 80061; 83036; 84443 ==

== ENCOUNTER → 2024-08-01 13:40 | Outpatient (BNVA) | payer MEDICARE, MEDICAID, SELFPAY | PROVIDERS: PCP Family Medicine Adult Medicine; Visit Provider Student in an Organized Health Care Education/Training Program | DX: Z12.11 Encounter for screening for malignant neoplasm of colon (principal) | CPT/HCPCS: 99024; 99204 ==

== ENCOUNTER 2024-08-29 05:42 | Day surgery (SDC) | payer MEDICARE, MEDICAID, SELFPAY ==
--- NOTE | 2024-08-27 10:48 | ANES.PREANE2 ---
Pre-Anesthetic Assessment Height/Weight: Height 5 ft 4 in Preop Diagnosis: Screening colonoscopy Operation Date: 08/29/24 07:00 Proposed Procedures p Colonoscopy 92000, G0105, Z12.11 Z80.0(Not Applicable) - Aaron Barros MD Was Beta Raina taken within 24 hours: Yes Was Clonidine taken within 24 hours: Yes Social Tobacco and No alcohol Exam alert, oriented x 3, clear to auscultation bilaterally and regular rate & rhythm Airway Submandibular: within normal limits Cervical ROM: within normal limits Mallampati: Class II Dentition: false Comments: Comments: Missing teeth on bottom, denies any loose Anesthetic Plan ASA status: 3 Anesthesia: MAC Other: No prior issues with anesthesia in the past Completed bowel prep History of hypertension on clonidine and carvedilol. BP 213/99. Will recheck On chronic hydrocodone 10?3 25 every 6 hours for back pain Type 2 diabetes, no insulin GERD on omeprazole Current smoker AL wears CPAP Prior echo 2020 showing EF 55 to 60% Plan for MAC anesthetic today Medications/Allergies Home Medications ?Medication ?Instructions ?Recorded ?Confirmed ?Last Taken ?Type gcvdbiz-allgpytxbhlds-hbvtdkrn 250 1 - 2 tab PO Q6H PRN Migraine 06/10/22 08/25/24 Unknown History mg-250 mg-65 mg tablet (Excedrin Headache Migraine) glucometer, strips and supplies #1 ea 12/25/22 08/01/24 08/28/24 Rx albuterol sulfate 90 mcg/actuation 2 puff inhalation QID PRN 07/28/23 08/25/24 Unknown Rx aerosol inhaler (Ventolin HFA) Shortness Of Breath #17 grams cyclobenzaprine 10 mg tablet 10 mg PO TID PRN Spasms 08/04/23 08/25/24 08/28/24 History atorvastatin 80 mg tablet 80 mg PO BEDTIME high 03/09/24 08/25/24 08/28/24 Rx cholesterol/fats #90 tabs levothyroxine 88 mcg tablet 88 mcg PO DAILY #90 tabs 04/21/24 08/25/24 08/28/24 Rx bupropion HCl 150 mg tablet,12 hr 150 mg PO [facility] mental health #90 06/06/24 08/25/24 08/28/24 Rx sustained-release tabs omeprazole 20 mg capsule,delayed 20 mg PO DAILY #90 caps 07/28/24 08/25/24 08/28/24 Rx release hydrocodone 10 mg-acetaminophen 1 tab PO Q6H PRN Pain 08/01/24 08/25/24 08/28/24 History 325 mg tablet bupropion HCl 300 mg 24 hr tablet, 300 mg PO DAILY 08/25/24 08/25/24 08/28/24 History extended release buspirone 10 mg tablet 10 mg PO BID 08/25/24 08/25/24 08/28/24 History carvedilol 25 mg tablet 25 mg PO BID 08/25/24 08/25/24 08/29/24 History clonidine HCl 0.1 mg tablet 0.1 mg PO DAILY PRN high blood 08/25/24 08/25/24 08/29/24 History pressure fenofibrate 160 mg tablet 160 mg PO DAILY 08/25/24 08/25/24 08/28/24 History metformin 500 mg tablet 500 mg PO BID 08/25/24 08/25/24 08/28/24 History mirtazapine 30 mg tablet 30 mg PO QPM 08/25/24 08/25/24 08/28/24 History promethazine 25 mg tablet 25 mg PO TID PRN Nausea And 08/25/24 08/25/24 08/23/24 History Vomiting Allergies Allergy/AdvReac Type Severity Reaction Status Date / Time butorphanol (From Stadol) Allergy SWELLING Verified 08/25/24 08:01 AND LESIONS latex Allergy rash Verified 08/25/24 08:01 [facility] Anesthesia Medical History Chronic nausea Nicotine dependence, cigarettes, uncomplicated Family hx of colon cancer father Constipation by delayed colonic transit Elevated blood pressure reading in office with diagnosis of hypertension Sleep apnea Acquired hypertriglyceridemia Agoraphobia Anxiety and depression Chronic radicular low back pain [facility] - Dr. Brandon Leonardo Smoker unmotivated to quit Diabetes type 2, controlled Dyslipidemia associated with type 2 diabetes mellitus Chronic GERD COPD (chronic obstructive pulmonary disease) Hypertension Thoracic back pain [facility] - Dr. Brandon Leonardo Hypothalamic hypothyroidism Asthma Surgical History Hx of fusion of cervical spine History of tubal ligation History of appendectomy History of back surgery she says it is spinal cord stimulator History of cholecystectomy Social History Smoking and tobacco/nicotine status: current every day tobacco/nicotine user cigarettes Packs smoked per day: 0.5 Second hand smoke exposure: Yes Alcohol intake: never Substance/Drug Use: never Lives independently: Yes Marital status: Legally Number of children: 4 Current occupational status: disabled Data Anesthesia Cardiac Studies: Echocardiogram 05/29/21
[2024-08-29 06:00] VITALS: BP 213/99; PULSE 59; RESP 18; TEMP 36.3; O2SAT 99
[2024-08-29] MEDS: sodium chloride 0.9% 500 ML 15 ML IV (06:09)
[2024-08-29 06:14] LABS: Glucose Point of Care 143 mg/dL (70-110)
--- NOTE | 2024-08-29 07:01 | W.PM.OPSUD ---
Surgery/Procedure H&P Update DATE OF PROCEDURE: August 29, 2024 DATE H&P PERFORMED: 08/01/24 H&P UPDATE INFORMATION: I have reviewed H&P completed within last 30 days, I have examined patient prior to procedure and No changes to prior documentation PREOP DIAGNOSIS: Screening colonoscopy PLANNED PROCEDURE: Operation Date: 08/29/24 07:00 Proposed Procedures p Colonoscopy 45896, G0105, Z12.11 Z80.0(Not Applicable) - Aaron Barros MD
[2024-08-29 07:32] VITALS: BP 101/55; PULSE 48; RESP 16; TEMP 36.1; O2SAT 98
[2024-08-29 07:40] VITALS: BP 114/64; PULSE 49; RESP 17; O2SAT 99
[2024-08-29 07:59] VITALS: BP 147/87; PULSE 48; RESP 18; O2SAT 98
--- NOTE | 2024-08-29 08:05 | ANE.PACU2 ---
Inpatient post-anesthesia follow up: Airway intact: Yes Vital signs: Temperature 97.0 F Pulse Rate 48 Respiratory Rate 18 Blood Pressure 147/87 Pulse Oximetry 98 Oxygen Delivery Me thod Room Air Oxygen Flow Rate Fraction of Inspir ed Oxygen Hydration adequate: Yes Nausea and vomiting: No Pain level: 1 Mental status: Baseline
== END 2024-08-29 08:05 | disposition home or self-care (01) ==
PROVIDERS: PCP Family Medicine; Visit Provider Student in an Organized Health Care Education/Training Program
PROC: 0DJD8ZZ Inspection of Lower Intestinal Tract, Via Natural or Artificial Opening Endoscopic (ICD-10-PCS; CPT 45378; principal; 2024-08-29 07:00)
DX: Z12.11 Encounter for screening for malignant neoplasm of colon (principal); Z80.0 Family history of malignant neoplasm of digestive organs; K21.9 Gastro-esophageal reflux disease without esophagitis; G47.33 Obstructive sleep apnea (adult) (pediatric); Z79.891 Long term (current) use of opiate analgesic; I10 Essential (primary) hypertension; Z79.899 Other long term (current) drug therapy; Z79.82 Long term (current) use of aspirin; Z79.890 Hormone replacement therapy; F17.210 Nicotine dependence, cigarettes, uncomplicated; F41.9 Anxiety disorder, unspecified; F32.A Depression, unspecified; J44.9 Chronic obstructive pulmonary disease, unspecified; E78.5 Hyperlipidemia, unspecified; E11.69 Type 2 diabetes mellitus with other specified complication
CPT/HCPCS: 36416; 82962; G0105; J2704; J7040

== ENCOUNTER 2024-09-30 13:36 | Outpatient (CLI) | payer MEDICARE, MEDICAID, SELFPAY | END 2024-09-30 13:37 | disposition home or self-care (01) | LOC: LAB 10-05 07:51 | PROVIDERS: PCP Family Medicine; Visit Provider Family Medicine | DX: E11.9 Type 2 diabetes mellitus without complications (principal); E03.9 Hypothyroidism, unspecified; E78.1 Pure hyperglyceridemia; E11.69 Type 2 diabetes mellitus with other specified complication; E78.5 Hyperlipidemia, unspecified; R07.9 Chest pain, unspecified; F41.9 Anxiety disorder, unspecified; F32.A Depression, unspecified; G47.30 Sleep apnea, unspecified; Z76.89 Persons encountering health services in other specified circumstances; I10 Essential (primary) hypertension; F17.210 Nicotine dependence, cigarettes, uncomplicated | CPT/HCPCS: 80053; 82043; 82607; 83036; 83540; 84439; 84443; 85025 ==

== ENCOUNTER 2024-10-26 14:45 | Outpatient (CLI) | payer MEDICARE, MEDICAID, SELFPAY ==
--- NOTE | 2024-10-26 15:00 | CT_ITS ---
WS: [id number] LDCT LUNG CANCER SCREENING HISTORY: screening for lung cancer; smoker; 37pk yr; just quit TECHNIQUE: Axial imaging performed from the apices to 1 cm below the costophrenic angles. Coronal and sagittal reformats are submitted with axial MIP series. All CT scans at [facility] use at least one of these dose optimization techniques: automated exposure control; mA and/or kV adjustment per patient size (includes targeted exams where dose is matched to clinical indication); or iterative reconstruction. DLP: 60.57 mGy.cm DIvol: Mean CTDIvol: 1.20 (mGy) COMPARISON: None available. Diagnostic quality: Satisfactory Lungs: Lungs are clear and well aerated. No pulmonary mass or nodule. No pneumonia. No endobronchial lesions. Heart: Normal size heart with no pericardial effusion.. Other findings: No pericardial or pleural effusions. Minimal atherosclerosis aorta. Normal size pulmonary artery. Pneumobilia. Patient is status post cholecystectomy pneumobilia has been previously seen on 12/12/2022. Dorsal column stimulator in the midthoracic region. CT/CT lung screening 56566 IMPRESSION: LUNG-RADS: 1-Negative FOLLOW UP: 12 Month: Continue annual screening with LDCT OTHER FINDINGS (S MODIFIER): None.
== END 2024-10-26 14:46 | disposition home or self-care (01) ==
PROVIDERS: PCP Family Medicine; Visit Provider Family Medicine
DX: Z12.2 Encounter for screening for malignant neoplasm of respiratory organs (principal); F17.210 Nicotine dependence, cigarettes, uncomplicated; Z90.49 Acquired absence of other specified parts of digestive tract; R93.5 Abnormal findings on diagnostic imaging of other abdominal regions, including retroperitoneum; Z96.89 Presence of other specified functional implants
CPT/HCPCS: 71271

== ENCOUNTER 2024-12-30 13:46 | Outpatient (CLI) | payer MEDICARE, MEDICAID, SELFPAY ==
--- NOTE | 2024-12-30 14:00 | MM_ITS ---
WS: [id number] BILATERAL 3D TOMOSYNTHESIS DIGITAL SCREENING MAMMOGRAPHY WITH CAD CLINICAL INFORMATION: screening HISTORY: Screening mammogram. No current complaints. COMPARISON: 2011 TECHNIQUE: Bilateral CC and MLO views. FINDINGS: Scattered fibroglandular densities bilaterally. No suspicious focal mass, asymmetry, calcifications, or architectural distortion. No evidence of malignancy. Lucent centered calcification LEFT breast MM/MM scr BI tomosynthesis 53014 IMPRESSION: DENSITY: There are scattered areas of fibroglandular density. BI-RADS: 2 - Benign. FOLLOW UP: 1 Year Follow-up Recommend return to annual screening mammography.
== END 2024-12-30 13:47 | disposition home or self-care (01) ==
PROVIDERS: PCP Family Medicine; Visit Provider Family Medicine
DX: Z12.31 Encounter for screening mammogram for malignant neoplasm of breast (principal)
CPT/HCPCS: 77063; 77067

== ENCOUNTER 2025-01-03 07:52 | Outpatient (CLI) | payer MEDICARE, MEDICAID, SELFPAY ==
--- NOTE | 2025-01-03 | ECG_ITS ---
Civo Usetrace Test Date: 2025-01-03 Pat Name: Cynthia Roblero Department: Room: Gender: Female Resident Care Manager: : 1975 Requested By: Thania Miner Order Number: [id number] Dari MD: Emmanuel Lantigua M.D. Interpretive Statements LEXISCAN SESTAMIBI STRESS TEST Procedure: At the baseline, the blood pressure was 196/113 mmHg with a heart rate of 59 bpm. The electrocardiogram showed normal sinus rhythm, normal axis with normal ST and T's. The Lexiscan was infused over a period of 20 seconds. A total of 0.4 mg of Lexiscan was infused. The stress phase was continued for a total of 5 minutes. Heart rate was at the end of stress phase was 88 bpm and a blood pressure of 133/91 mmHg. The EKG at the peak infusion revealed normal sinus rhythm with no significant ST-T wave changes. Sestamibi was injected 20 seconds after the Lexiscan infusion. Blood pressure at the end of recovery phase was 151/96 mmHg with a heart rate of 80 bpm. Conclusion: 1. Normal EKG response to Lexiscan infusion 2. No Lexiscan induced chest pain or cardiac arrhythmia. 3. Normal blood pressure and heart rate response. 4. Sestamibi/sestamibi perfusion scan pending; see separate report. Electronically Signed On 01-21-2025 13:39:58 CDT by Emmanuel Lantigua M.D. [email or web address]
[2025-01-03 08:10] VITALS: BMI 28.8
--- NOTE | 2025-01-03 08:10 | NMCV_ITS ---
NM kaitlynn perf SPECT r/s* [id number] Cynthia Roblero Age: 49 Gender: F : 1975 Exam Date: 01/03/2025 08:50 Ordering Phys: Thania Nathan MD Technologist: NORA Cordova Exam Location: [facility] Indications: CP STRESS TEST Please see separate stress test report in [facility] for full findings IMAGE PROTOCOL Rest/Stress 1 Lexiscan Day Radiopharmaceutical Dose (mCi) Administration Site Administered by Rest: Tc-99m 10.5 IV Saige Buchanan, [employer] [place] Sestamibi Stress:Tc-99m 32.4 IV Saige Bryangle, [employer] Sestamibi Rest: 03-Jan-2025 60 Discovery 630 Stress: 03-Jan-2025 30 Discovery 630 0.4mg Lexiscan. Images obtained in supine and prone position. SPECT RESULTS Technical Quality: Good Raw Data Analysis: Normal Image Corrections: No attenuation or motion correction applied Summed Stress Score: 1 Summed Rest Score: 0 Summed Difference Score: 1 PERFUSION FINDINGS SPECT images demonstrate homogeneous tracer distribution throughout the myocardium. FUNCTIONAL RESULTS (calculated via Gated SPECT) Stress Image LV EF (%): 84 Stress EDV (mL):86 TID: 0.94 Stress ESV (mL):14 FUNCTIONAL FINDINGS: There is normal left ventricular systolic function. IMPRESSIONS 1. Normal myocardial perfusion imaging with no evidence of ischemia. 2. LV systolic function is normal. Emmanuel Lantigua MD (Electronically Signed) Final Date: 07 January 2025 11:30 S
[2025-01-03] MEDS: hyDRALAzine 20 mg/mL INJ 1 mL 10 MG IVP (09:30)
[2025-01-03] MEDS: regadenoson 0.4 Mg/5 ml Syringe IVP (09:31)
[2025-01-03 09:46] VITALS: BP 151/96; PULSE 80
== END 2025-01-03 07:53 | disposition home or self-care (01) ==
LOC: CDL 07:53
PROVIDERS: PCP Family Medicine; Visit Provider Family Medicine
DX: R07.9 Chest pain, unspecified (principal)
CPT/HCPCS: 36415; 78452; 93017; 96374; A9500; J0360; J2785

== ENCOUNTER → 2025-01-09 14:04 | Outpatient (BNVA) | payer MEDICARE, MEDICAID, SELFPAY | PROVIDERS: PCP Family Medicine; Visit Provider Family Medicine | DX: Z12.4 Encounter for screening for malignant neoplasm of cervix (principal) | CPT/HCPCS: 87624 ==

== ENCOUNTER → 2025-01-30 10:40 | Outpatient (BNVA) | payer MEDICARE, MEDICAID, SELFPAY | PROVIDERS: PCP Family Medicine; Visit Provider Obstetrics & Gynecology | DX: R87.810 Cervical high risk human papillomavirus (HPV) DNA test positive (principal); R87.618 Other abnormal cytological findings on specimens from cervix uteri | CPT/HCPCS: 88305; 88342 ==

== ENCOUNTER → 2025-03-07 14:52 | Outpatient (BNVA) | payer MEDICARE, MEDICAID, SELFPAY | PROVIDERS: PCP Family Medicine; Visit Provider Family Medicine | DX: E11.9 Type 2 diabetes mellitus without complications (principal); E78.5 Hyperlipidemia, unspecified; I1A.0 Resistant hypertension; K21.9 Gastro-esophageal reflux disease without esophagitis; E11.69 Type 2 diabetes mellitus with other specified complication | CPT/HCPCS: 80053; 83036; 85025 ==

== ENCOUNTER → 2025-06-06 13:17 | Outpatient (BNVA) | payer MEDICARE, MEDICAID, SELFPAY | PROVIDERS: PCP Family Medicine; Visit Provider Family Medicine | DX: E11.69 Type 2 diabetes mellitus with other specified complication (principal); E78.5 Hyperlipidemia, unspecified; E78.1 Pure hyperglyceridemia; K76.0 Fatty (change of) liver, not elsewhere classified; E03.9 Hypothyroidism, unspecified | CPT/HCPCS: 80053; 80061 ==